=== PATIENT | female | born 1995 | race Caucasian/White ===

== ENCOUNTER 2016-06-04 21:12 | Emergency (ER) | payer MEDICAID, OTHER ==
[2016-06-04] MEDS ORDERED: DEXAMETHASONE 10 MG/ML VIAL PO STA (21:30)
[2016-06-04] MEDS ORDERED: ALBUTEROL NEB 2.5 MG/3 ML INH STA (21:30)
[2016-06-04] MEDS ORDERED: DEXAMETHASONE 10 MG/ML VIAL ONE (21:35)
[2016-06-04] MEDS ORDERED: CHERRY SYRUP 10 ML UDC PO ONE (21:35)
[2016-06-04] MEDS ORDERED: ALBUTEROL NEB 2.5 MG/3 ML INH ONE (21:36)
[2016-06-04] MEDS ORDERED: ALBUTEROL 8 GM INHALER INH STA (22:02)
[2016-06-04] MEDS ORDERED: ALBUTEROL 8 GM INHALER INH ONE (22:12)
== END 2016-06-04 22:22 | disposition home or self-care (01) ==
DX: J45.21 Mild intermittent asthma with (acute) exacerbation (principal); F17.200 Nicotine dependence, unspecified, uncomplicated
CPT/HCPCS: 94640; 99283; 99284; A9270; J7613

== ENCOUNTER 2016-08-18 19:58 | Emergency (ER) | payer MEDICAID ==
[2016-08-18] MEDS ORDERED: IPRATROPIUM/ALBUTEROL 3 ML NEB INH STA (20:50)
--- NOTE | 2016-08-18 20:52 | ED Physician Documentation ---
PD HPI DYSPNEA - Stated complaint Stated Complaint: DIFF BREATHING - Chief complaint Chief Complaint: Resp - History obtained from History obtained from: Patient - History of Present Illness Timing - onset: Other (20-year-old woman with mild intermittent asthma, never hospitalized. Triggers include exertion and URI. She's had cough and cold symptoms with runny nose but no fevers for the last 2 days and today started having wheezing and shortness of breath with only moderate relief from nebulized treatments of albuterol at home. On a good day she doesn't take anything for her asthma.) Review of Systems Constitutional: denies: Fever, Chills Nose: reports: Rhinorrhea / runny nose, Congestion Throat: denies: Sore throat Cardiac: denies: Chest pain / pressure, Palpitations, Pedal edema, Calf pain Respiratory: reports: Dyspnea, Cough, Wheezing. 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 : Kidney stones HEENT: None Psych: None Musculoskeletal: None Derm: None - Past Surgical History Past Surgical History: Yes - Present Medications Home Medications: Ambulatory Orders Medication Instructions Recorded Confirmed Albuterol Sulfate [Proair Hfa 2 puffs IH QID #1 [id number].[email or web address] 06/04/16 08/18/16 Inhaler] predniSONE [Deltasone] 60 mg PO DAILY 5 Days 08/18/16 - Allergies Allergies/Adverse Reactions: Allergies Allergy/AdvReac Type Severity Reaction Status Date / Time No Known Drug Allergies Allergy Verified 08/18/16 20:18 - Social History Does the pt smoke?: No Smoking Status: Former smoker Does the pt drink ETOH?: No Does the pt have substance abuse?: No - Immunizations Immunizations are current?: Yes - POLST Patient has POLST: No PD ED PE NORMAL - Vitals Vital signs reviewed: Yes - General General: Alert and oriented X 3, No acute distress - HEENT HEENT: PERRL, Pharynx benign - Neck Neck: Supple, no meningeal sign, No bony TTP - Cardiac Cardiac: RRR, No murmur - Respiratory Respiratory: No respiratory distress, Other (Diminished but still moderate air movement with inspiratory and expiratory wheezes throughout, no focal findings. No respiratory distress.) - Abdomen Abdomen: Soft, Non tender - Extremities Extremities: No edema, No calf tenderness / cord - Neuro Neuro: Alert and oriented X 3, Normal speech - Psych Psych: Normal mood, Normal affect Results - Vitals Vitals: Vital Signs - 24 hr 08/18/16 08/18/16 08/18/16 20:06 21:00 21:15 Temperature 36.4 C L 36.3 C L Heart Rate 98 96 92 Respiratory 18 18 15 Rate Blood Pressure 130/81 H 119/67 O2 Saturation 98 97 Oxygen O2 Source Room air - Labs Labs: Laboratory Tests 08/18/16 20:58 Ur Specific [place] 1.020 Urine HCG, Qual NEGATIVE PD MEDICAL DECISION MAKING - ED course ED course: She presents with an apparent asthma exacerbation, after the first neb she was breathing clearer, still with some wheezes, given a second neb with albuterol, wanted to check a test before steroid's and this was done and negative , she was administered prednisone. Departure - Departure Disposition: 01 Home, Self Care Clinical Impression: Acute asthma exacerbation Qualifiers: Asthma severity: mild intermittent Qualified Code(s): J45.21 - Mild intermittent asthma with (acute) exacerbation Condition: Good Record reviewed to determine appropriate education?: Yes Instructions: Asthma Dc Prescriptions: predniSONE [Deltasone] 60 mg PO DAILY 5 Days Comments: Call your doctor to arrange a follow up appointment. Make the next available appointment. In the interim return anytime if worse or if new symptoms develop. Your blood pressure was elevated today on check in to the emergency department. This does not mean that you have hypertension, it is a common phenomenon to check into the emergency department and have elevated blood pressure. I recommend that you see your primary care physician within the week to have it rechecked when you're feeling better. Discharge Date/Time: 08/18/16 22:20
[2016-08-18] MEDS ORDERED: IPRATROPIUM/ALBUTEROL 3 ML NEB INH ONE (20:58)
[2016-08-18 21:16] VITALS: BP 119/67
[2016-08-18 21:41] LABS: HCG UR QUAL NEGATIVE
[2016-08-18] MEDS ORDERED: predniSONE 20 MG TABLET PO STA (21:53)
[2016-08-18] MEDS ORDERED: predniSONE 20 MG TABLET ONE (21:56)
[2016-08-18] MEDS ORDERED: ALBUTEROL NEB 2.5 MG/3 ML INH ONE (22:07)
[2016-08-18] MEDS: ALBUTEROL NEB 2.5 MG/3 ML INH STA ×2 (22:08→22:10)
== END 2016-08-18 22:20 | disposition home or self-care (01) ==
LOC: ED 19:58
DX: J45.21 Mild intermittent asthma with (acute) exacerbation (principal); R03.0 Elevated blood-pressure reading, without diagnosis of hypertension; Z87.891 Personal history of nicotine dependence
CPT/HCPCS: 81025; 94640; 99283; 99284; J7512; J7613; J7620

== ENCOUNTER 2016-10-17 14:44 | Outpatient (CLI) | payer MEDICAID ==
[2016-10-17 15:45] LABS: BASOPHILS % (AUTO) 0.3 %; EOSINOPHILS # (AUTO) 0.4 10^3/uL (0.0-0.7); EOSINOPHILS % (AUTO) 3.6 %; HGB - HEMOGLOBIN 12.8 g/dL (12.0-16.0); LYMPHOCYTES # (AUTO) 3.1 10^3/uL (1.5-3.5); LYMPHOCYTES % (AUTO) 28.9 %; MEAN CORPUSCULAR HEMOGLOBIN 28.8 pg (27.0-31.0); MEAN CORPUSCULAR HGB CONC 33.7 g/dL (32.0-36.0); MEAN CORPUSCULAR VOLUME 85.4 fL (81.0-99.0); MONOCYTES # (AUTO) 0.7 10^3/uL (0.0-1.0); MONOCYTES % (AUTO) 6.7 %; NEUTROPHILS # (AUTO) 6.6 10^3/uL (1.5-6.6); NEUTROPHILS % (AUTO) 60.5 %; RED BLOOD COUNT 4.45 10^6/uL (4.20-5.40); RED CELL DISTRIBUTION WIDTH 14.3 % (12.0-15.0); UNCORRECTED WHITE BLOOD COUNT 10.9 x10^3/uL; WHITE BLOOD COUNT 10.9 x10^3/uL (4.8-10.8)
[2016-10-20 14:35] LABS: TEST RESULT REPORT (())
== END 2016-10-17 14:45 | disposition home or self-care (01) ==
LOC: LAB 14:44
PROVIDERS: ATTEND Obstetrics & Gynecology
DX: Z36 Encounter for antenatal screening of mother (principal)
CPT/HCPCS: 36415; 81599; 85025; 86762; 86780; 86850; 86900; 86901; 87340; 87389

== ENCOUNTER 2016-12-11 12:23 | Outpatient (CLI) | payer MEDICAID ==
[2016-12-12 12:50] LABS: TEST RESULT REPORT (())
[2016-12-14 16:55] LABS: TEST RESULT REPORT (())
== END 2016-12-11 12:24 | disposition home or self-care (01) ==
LOC: LAB 12:23
PROVIDERS: ATTEND Obstetrics & Gynecology
DX: Z36 Encounter for antenatal screening of mother (principal)
CPT/HCPCS: 36415; 81511; 81599; 82105; 82677; 84702; 86336; 86780

== ENCOUNTER 2016-12-27 07:37 | Outpatient (CLI) | payer MEDICAID ==
--- NOTE | 2016-12-28 11:00 | Ultrasound Report ---
OB ULTRASOUND: 12/27/2016 CLINICAL INDICATION: anatomy. TECHNIQUE: Real-time scanning was performed with abrasives sales representative static images obtained. LAST MENSTRUAL PERIOD 08/09/2016 Clinical Age 20 weeks 0 days US Age 20 weeks 2 days EFW Hadlock 346 g EFW% Hadlock --- Heart Rate 151 bpm EDC 05/16/2017 US EDC 05/14/2017 BPD Hadlock 19 weeks 6 days; Mean mm 45.6 HC Hadlock 19 weeks 6 days; Mean mm 173.5 AC Hadlock 20 weeks 5 days; Mean mm 156.2 FL Hadlock 19 weeks 6 days; Mean mm 31.8 Presentation breech Placental Location posterior Cervical Length 4.2 cm Amniotic Fluid 4.6 cm FINDINGS: There is a single viable intrauterine gestation, in breech presentation. heart rate is 151 BPM. The placenta is posterior, without evidence of previa. Amniotic fluid volume is subjectively normal. By size, the fetus measures 20 weeks 2 days (20 weeks 0 days by LMP). The following anatomic structures were visualized and appear normal: The intracranial contents, including the ventricles and posterior fossa; the spine; the diaphragm; the abdominal contents, including the stomach , the bilateral kidneys, and urinary bladder, as well as a normal 3 vessel cord insertion; 4 limbs. Imaging of the cardiac structures and facial structures is limited by positioning. The uterus demonstrates a 4.9 x 4.6 x 2.5 cm fundal leiomyoma. No free fluid or adnexal lesion is appreciated. IMPRESSION: SINGLE VIABLE INTRAUTERINE GESTATION, WITH SIZE IN KEEPING WITH LMP DATING. LIMITED VISUALIZATION OF CARDIAC STRUCTURES AND FACIAL STRUCTURES , DUE TO POSITIONING. OTHERWISE, NORMAL ANATOMIC SURVEY. [facility]
== END 2016-12-27 07:38 | disposition home or self-care (01) ==
LOC: DI 07:37
PROVIDERS: ATTEND Obstetrics & Gynecology
DX: Z34.82 Encounter for supervision of other normal pregnancy, second trimester (principal)
CPT/HCPCS: 76811

== ENCOUNTER 2017-01-07 01:09 | Observation (INO) | payer MEDICAID ==
[2017-01-07 01:39] LABS: BILIRUBIN,URINE NEGATIVE (NEGATIVE); PH,URINE 6.5 PH (5.0-7.5)
[2017-01-07 01:56] LABS: UA w/ MICROSCOPIC CHARGE YES
[2017-01-07 01:57] LABS: UR CULTURE IF IND NOT INDICATED; WBC,URINE 0-3 /HPF (0-5)
[2017-01-07] MEDS ORDERED: MORPHINE 2 MG/ML SYRINGE IM PRN (02:05)
[2017-01-07] MEDS ORDERED: HYDROmorphone 1 MG/ML CARPUJECT IVP STA (03:02)
[2017-01-07] MEDS: LACTATED RINGERS 1,000 ML IV SCH ×4 (03:20→23:53)
[2017-01-07 03:48] LABS: BASOPHILS # (AUTO) 0.1 10^3/uL (0.0-0.1); BASOPHILS % (AUTO) 0.3 %; EOSINOPHILS # (AUTO) 0.3 10^3/uL (0.0-0.7); HCT - HEMATOCRIT 34.7 % (37.0-47.0); HGB - HEMOGLOBIN 11.9 g/dL (12.0-16.0); LYMPHOCYTES # (AUTO) 3.5 10^3/uL (1.5-3.5); LYMPHOCYTES % (AUTO) 22.3 %; MEAN CORPUSCULAR HEMOGLOBIN 29.5 pg (27.0-31.0); MEAN CORPUSCULAR HGB CONC 34.3 g/dL (32.0-36.0); MEAN PLATELET VOLUME 7.9 fL (7.9-10.8); MONOCYTES # (AUTO) 0.9 10^3/uL (0.0-1.0); MONOCYTES % (AUTO) 6.1 %; NEUTROPHILS # (AUTO) 10.7 10^3/uL (1.5-6.6); NEUTROPHILS % (AUTO) 69.3 %; RED BLOOD COUNT 4.03 10^6/uL (4.20-5.40); RED CELL DISTRIBUTION WIDTH 13.3 % (12.0-15.0); UNCORRECTED WHITE BLOOD COUNT 15.5 x10^3/uL; WHITE BLOOD COUNT 15.5 x10^3/uL (4.8-10.8)
[2017-01-07 03:50] LABS: ALBUMIN/GLOBULIN RATIO 0.9 (1.0-2.2); BILIRUBIN,TOTAL 0.4 mg/dL (0.2-1.0); CALCIUM 8.7 mg/dL (8.5-10.3); CREATININE 0.6 mg/dL (0.4-1.0); TOTAL PROTEIN 6.9 g/dL (6.7-8.2)
[2017-01-07] MEDS: HYDROmorphone PCA 10 MG IV PRN ×2 (04:03→17:29)
[2017-01-07] MEDS: ONDANSETRON 4 MG/2 ML VIAL IVP PRN ×3 (06:44→21:49)
[2017-01-07] MEDS ORDERED: ALBUTEROL NEB 2.5 MG/3 ML INH PRN (07:31)
--- NOTE | 2017-01-07 08:45 | PREOP HISTORY & PHYSICAL ---
DATE OF ADMISSION/SURGERY: 01/07/2017. IDENTIFICATION: A 21-year-old G2, P1 female who is 21.4 weeks, EDC is 2017. CHIEF COMPLAINT: Left flank plain. HISTORY OF PRESENT ILLNESS: The patient states at roughly 1 o'clock this morning she developed sudden left flank pain. It was localized to the back. She denies any history of trauma. She does have a history of having 4 previous renal stones. These have occurred both on the left and right hand side. She denies any chills or fevers at this time. She states her last kidney stone was roughly 1 year ago. She relates that she has had a renal basket on one of her kidney stones and has been admitted for pain control previously. PAST MEDICAL HISTORY: Positive for asthma. Renal Lithiasis PAST SURGICAL HISTORY: Positive for a previous basket of a right renal stone. She has also had a closed reduction of a leg fracture. ALLERGIES: NONE KNOWN. CURRENT MEDICATIONS 1. vitamins. 2. Ventolin. HABITS: The patient smokes 1 cigarette per day. SOCIAL HISTORY: The patient is , lives with spouse and child. REVIEW OF SYSTEMS: Negative for any stones. PHYSICAL EXAMINATION GENERAL: The patient is a well-developed, well-nourished female who is in moderate distress at this time. VITAL SIGNS: Temperature is 36.7, pulse is 98, blood pressure 102/59, respirations 18, 94% sat. HEENT: Pupils are equal, round. Extraocular muscles are intact. LUNGS: Clear without wheezes noted throughout. No evidence of any consolidation in any local areas. ABDOMEN: Soft, gravid, nontender. heart tones noted to be positive. BACK: There is marked tenderness in the left costovertebral angle. The remainder of the spine is nontender. LABORATORY: White count 15.5, hemoglobin 11.9, platelets 234. Electrolytes are all within normal limits. Urinalysis shows a specific gravity of 1.015. She is negative for nitrites, as well as leukocytes. However, she has noted to have large blood, as RBCs are too numerous to count. IMPRESSION: A 21-year-old G2, P1, at 21.4 weeks' gestation with left renal lithiasis, as well as asthma. 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 We will also obtain a renal ultrasound and restart her on her albuterol. JOB #: [id number] EXT JOB #:[id number] LOGAN
--- NOTE | 2017-01-07 09:34 | Ultrasound Report ---
RENAL ULTRASOUND: 01/07/2017 CLINICAL INDICATION: Left flank pain, nausea, vomiting, history of stones. TECHNIQUE: Real-time sonographic vascular imaging was performed by the corporate strategist through the kidney s utilizing both color-flow and Doppler spectral analysis. Multiple truck sales representative static images wer e saved for review. FINDINGS: The right kidney measures 12.5 x 6.5 x 5.2 cm, and is unremarkable. The left kidney measur es 13.0 x 7.7 x 6.4 cm, and demonstrates moderate hydronephrosis and proximal hydroureter. The presum ed obstructing calculus is not visualized, due to overlying bowel gas. Left ureteral dilatation does not extend to the bladder base, and the left ureteral jet was visualized in the urinary bladder, excl uding a complete obstruction. A right ureteral jet was also visualized. The bladder measures 9.2 x 7. 5 x 7.2 cm, yielding a volume of 257 mL. No focal bladder lesion is seen. Incidental note is made of a viable IUP. IMPRESSION: MODERATE LEFT HYDRONEPHROSIS AND PROXIMAL HYDROURETER. THE PRESUMED LEFT URETERAL CALCUL US IS NOT VISUALIZED, DUE TO OVERLYING BOWEL GAS. THE LEFT URETERAL JET IS VISUALIZED, EXCLUDING A CO MPLETE OBSTRUCTION. JOB #: [id number] EXT JOB #:[id number]
[2017-01-07] MEDS: PROMETHAZINE INJ 25 MG in SODIUM CHLORIDE 0.9% 50 ML IV PRN (10:07)
[2017-01-08] MEDS ORDERED: ACETAMINOPHEN 500 MG TABLET PO SCH (04:45)
[2017-01-08] MEDS ORDERED: ACETAMINOPHEN 500 MG TABLET PO ONE (05:00)
[2017-01-08] MEDS: LACTATED RINGERS 1,000 ML IV SCH ×2 (07:39→15:31)
[2017-01-08] MEDS: ONDANSETRON 4 MG/2 ML VIAL IVP PRN ×2 (08:03→12:55)
--- NOTE | 2017-01-08 08:35 | PROVIDER PROGRESS NOTE ---
Subjective - Prog Note Date Prog Note Date: 01/08/17 Prog Note Time: 08:33 - Subjective Pt reports feeling: Improved (Passed 2x3 mm stone last PM. Pain 3-6/10. Feels brused in the LLQ. C/O WILOSN, recieved tylenol 1000 mg 0500. C/O Nausia. is using Dilaudid.) Objective - Vital Signs/Intake & Output Reviewed Vital Signs: Yes Vital Signs: Vital Signs x48h Temp Pulse Pulse Resp BP Pulse Ox 01/08/17 07:55 77 16 01/08/17 07:44 36.6 C 72 14 111/46 L 98 Intake & Output: Intake & Output 01/05/17 01/06/17 01/07/17 01/08/17 23:59 23:59 23:59 23:59 Intake Total 2430 750 Output Total 2900 Balance -470 750 - Objective General Appearance: positive: Alert, Mild distress Respiratory: positive: Chest non-tender, No respiratory distress, Wheezes (thru out) Cardiovascular: positive: Regular rate & rhythm, No murmur Abdomen: positive: Non-tender, Mass (FHT 144 last PM) Back: positive: CVA tenderness (L) (improved from admission) Extremities: negative: Calf tenderness, Lashonda's sign/cords Neurologic/Psychiatric: positive: Oriented x3 - Lab Results Fish Bones: 01/07/17 03:20 01/07/17 03:20 - Diagnostic Imaging Diagnostic Imaging Results: positive: See rad report (Left Byers Nephro and Hydroureter) Assessment/Plan - Problem List (1) Impression: doing well Qualifiers: Weeks of gestation: 21 weeks Qualified Code(s): Z3A.21 - 21 weeks gestation of (2) Kidney calculi Impression: Passed 2-3 mm stone, improving anticipate discharge
[2017-01-08] MEDS ORDERED: SODIUM CHLORIDE FLUSH 0.9% 10 ML SYRINGE IVP ONE ×3 (09:13→14:20)
[2017-01-08] MEDS: PROMETHAZINE INJ 25 MG in SODIUM CHLORIDE 0.9% 50 ML IV PRN (09:29)
[2017-01-08] MEDS: ACETAMINOPHEN 325 MG TABLET PO PRN ×2 (11:48→15:23)
[2017-01-08] MEDS ORDERED: ONDANSETRON 4 MG/2 ML VIAL IVP ONE (14:06)
[2017-01-08 15:35] VITALS: BP 119/67
--- NOTE | 2017-01-08 17:59 | PROVIDER PROGRESS NOTE ---
Subjective - Prog Note Date Prog Note Date: 01/08/17 Prog Note Time: 17:57 - Subjective Pt reports feeling: Improved (Pt has had some difficulty with Nausia and head ach. Have resolved with Tylenol and Zofran. Flank pain totaly resolved.) Objective - Vital Signs/Intake & Output Reviewed Vital Signs: Yes Vital Signs: Vital Signs x48h Temp Pulse Resp BP Pulse Ox 01/08/17 16:00 16 01/08/17 15:34 37.2 C 85 16 119/67 97 01/08/17 15:00 16 01/08/17 14:00 16 01/08/17 13:00 16 01/08/17 12:00 14 01/08/17 11:51 36.7 C 84 16 117/67 98 01/08/17 11:00 14 01/08/17 10:00 16 Intake & Output: Intake & Output 01/05/17 01/06/17 01/07/17 01/08/17 23:59 23:59 23:59 23:59 Intake Total 2430 750 Output Total 2900 2500 Balance -470 -1750 - Objective General Appearance: positive: No acute distress, Alert Abdomen: positive: Non-tender, Mass Back: negative: CVA tenderness (R), CVA tenderness (L) - Lab Results Fish Bones: 01/07/17 03:20 01/07/17 03:20 Assessment/Plan - Problem List (1) Impression: doing well good FM. Qualifiers: Weeks of gestation: 21 weeks Qualified Code(s): Z3A.21 - 21 weeks gestation of (2) Kidney calculi Impression: Pt has passed Stone and renal colic resolved. Pt encouraged to keep welll hydrated
--- NOTE | 2017-01-08 18:43 | Discharge Plan ---
Discharge Plan Disposition: 01 Home, Self Care Condition: Good Diet: Regular Activity Restrictions: No Restrictions Shower Restrictions: No Driving Restrictions: No No Smoking: If you smoke, Please STOP! Call for help.
--- NOTE | 2017-01-09 09:13 | DISCHARGE SUMMARY ---
DATE OF ADMISSION: 01/07/2017 DATE OF DISCHARGE: 01/08/2017 ADMITTING DIAGNOSES 1. 21.4 weeks' gestation. 2. Left renal lithiasis. DISCHARGE DIAGNOSES 1. 21.4 weeks' gestation. 2. Left renal lithiasis. PROCEDURE: IV pain control, as well as pelvic ultrasound. HISTORY OF PRESENTING ILLNESS: The patient is a 21-year-old 2, para 1 female who was 21.4 wee ks on admission. She complained of sudden onset of left flank pain the morning of admission, she stat es it was localized to the back. No history of trauma. She had a history of having 4 previous renal s tones both on the left and right side. She has had one the right side, which required a basket proced ure. Her laboratories on admission showed a white count of 15.5, hemoglobin was 11.9. Urine showed ne gative nitrites, as well as leukocytes. However, she had a large blood and TNTC on the RBCs in her ur ine. She was admitted, placed on IV Dilaudid and IV of LR was ordered, and she had an ultrasound performed . This showed evidence of a dilated left renal collecting system. With time her kidney passed the sto ne on the night of the , it was measured to be 2 x 3 mm in size. Her pain started to improve dram atically. However, she had difficulty with some nausea, vomiting, as well as headache. These responde d to Phenergan as well as Zofran. The patient is feeling markedly improved at this time. PLAN: We are planning to send her home on discharge medications of Zofran 4 mg p.o. q.6 h. p.r.n. neli rosario as #16. She will be following up in clinic within the next 1-2 weeks. JOB #: [id number] EXT JOB #:[id number]
== END 2017-01-08 18:50 | disposition home or self-care (01) ==
LOC: WFO 01:09 → FBP 01:11 → WFO 06:18 → FBP 06:20
PROVIDERS: ADMIT Obstetrics & Gynecology; ATTEND Obstetrics & Gynecology
DX: O99.89 Other specified diseases and conditions complicating pregnancy, childbirth and the puerperium (principal); N13.2 Hydronephrosis with renal and ureteral calculous obstruction; R51 Headache; O99.512 Diseases of the respiratory system complicating pregnancy, second trimester; J45.909 Unspecified asthma, uncomplicated; O99.332 Smoking (tobacco) complicating pregnancy, second trimester; F17.210 Nicotine dependence, cigarettes, uncomplicated; Z3A.21 21 weeks gestation of pregnancy
CPT/HCPCS: 76770; 80053; 81001; 85025; 94640; 96365; 96366; 96372; 96375; 99213; A9270; G0378; J1170; J2270; J7040; J7120; J7613; 81003; 87086

== ENCOUNTER 2017-01-12 23:33 | Inpatient (IN) | payer MEDICAID ==
[2017-01-13] LABS: BILIRUBIN,URINE NEGATIVE (NEGATIVE); PH,URINE 6.5 PH (5.0-7.5)
[2017-01-13] MEDS ORDERED: HYDROmorphone 1 MG/ML CARPUJECT ONE (00:05)
[2017-01-13] MEDS ORDERED: LACTATED RINGERS 1,000 ML IV ONE (00:05)
[2017-01-13] MEDS ORDERED: SODIUM CHLORIDE FLUSH 0.9% 10 ML SYRINGE IVP ONE (00:06)
[2017-01-13 00:08] LABS: UR CULTURE IF IND NOT INDICATED; WBC,URINE 0-3 /HPF (0-5)
[2017-01-13] MEDS ORDERED: HYDROmorphone 1 MG/ML CARPUJECT IVP SCH (00:15)
[2017-01-13] MEDS ORDERED: LACTATED RINGERS 500 ML IV SCH (00:22)
[2017-01-13] MEDS ORDERED: HYDROmorphone 1 MG/ML SYRINGE IVP SCH (00:35)
[2017-01-13] MEDS ORDERED: HYDROmorphone 1 MG/ML SYRINGE ONE (00:37)
[2017-01-13] MEDS ORDERED: oxyCODONE 5 MG TABLET PO PRN (01:29)
[2017-01-13] MEDS ORDERED: oxyCODONE 5 MG TABLET ONE (01:29)
[2017-01-13] MEDS: ONDANSETRON 4 MG/2 ML VIAL IVP PRN ×5 (01:32→20:53)
[2017-01-13] MEDS ORDERED: fentaNYL 100 MCG/2 ML VIAL IVP PRN (01:54)
[2017-01-13] MEDS ORDERED: fentaNYL 100 MCG/2 ML VIAL ONE (01:56)
[2017-01-13] MEDS: LACTATED RINGERS 1,000 ML IV SCH ×5 (02:37→17:42)
[2017-01-13] MEDS ORDERED: fentaNYL 250 MCG/5 ML VIAL IVP PRN (02:52)
[2017-01-13] MEDS ORDERED: fentaNYL 100 MCG/2 ML VIAL IVP SCH (03:00)
[2017-01-13] MEDS: fentaNYL 100 MCG/2 ML VIAL IVP PRN ×10 (03:14→14:39)
[2017-01-13] MEDS: fentaNYL 250 MCG/5 ML VIAL IVP PRN ×3 (03:20→06:15)
[2017-01-13] MEDS: oxyCODONE 5 MG TABLET PO PRN ×4 (04:15→17:41)
--- NOTE | 2017-01-13 12:57 | Ultrasound Preliminary Report ---
Exam: US Retroperitoneal Limited IMPRESSION: There is no longer left hydronephrosis. [facility] SITE ID: [id number]
--- NOTE | 2017-01-13 13:00 | Ultrasound Report ---
EXAM: LIMITED RENAL ULTRASOUND EXAM DATE: 01/13/2017 12:33 PM. CLINICAL HISTORY: Left flank pain. History of kidney stones. Patient passed a kidney stone 3 weeks ag o. Patient is 22 weeks . COMPARISON: 01/07/2017. TECHNIQUE: Real-time scanning was performed with static images obtained. FINDINGS: Left Kidney: 13.1 cm. Normal echotexture with no stones, contour-deforming masses, or hydronephrosis . IMPRESSION: There is no longer left hydronephrosis. [facility] Referring Provider Line: [phone] SITE ID: [id number]
[2017-01-13] MEDS ORDERED: fentaNYL PCA 500 MCG IV PRN ×2 (13:30→14:28)
[2017-01-13] MEDS: TAMSULOSIN 0.4 MG CAPSULE PO SCH (17:41)
--- NOTE | 2017-01-13 19:31 | PROVIDER PROGRESS NOTE ---
Subjective - Prog Note Date Prog Note Date: 01/13/17 Prog Note Time: 19:27 - Subjective Pt reports feeling: Improved Subjective: Patient lying in bed. Cold cloth on her forehead and neck. Complaining of a headache. 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 Getting nausea as well from fentanyl. Objective - Vital Signs/Intake & Output Reviewed Vital Signs: Yes Vital Signs: Vital Signs x48h Temp Pulse Resp BP Pulse Ox 01/13/17 15:31 97.5 F L 66 17 90/46 L 98 Intake & Output: Intake & Output 01/10/17 01/11/17 01/12/17 01/13/17 23:59 23:59 23:59 23:59 Intake Total 6158.166 Output Total 2700 Balance 3458.166 - Objective General Appearance: positive: Alert, Mild distress - Lab Results Other Labs: Lab Results x24hrs 01/12/17 Range/Units 23:40 Urine Color YELLOW Urine Clarity HAZY (CLEAR) Urine pH 6.5 (5.0-7.5) PH Ur Specific [place] 1.015 (1.002-1.030) Urine Protein NEGATIVE (NEGATIVE) mg/dL Urine Glucose (UA) NEGATIVE (NEGATIVE) mg/dL Urine Ketones NEGATIVE (NEGATIVE) mg/dL Urine Occult Blood LARGE H (NEGATIVE) Urine Nitrite NEGATIVE (NEGATIVE) Urine Bilirubin NEGATIVE (NEGATIVE) Urine Urobilinogen 0.2 (NORMAL) (NORMAL) E.U./dL Ur Leukocyte Esterase TRACE H (NEGATIVE) Urine RBC TNTC H (0-5) /HPF Urine WBC 0-3 (0-5) /HPF Ur Squamous Epith Cells MOD Squamous H (<= Few) Urine Bacteria Few (None Seen) /HPF Urine Culture Comments NOT INDICATED - Diagnostic Imaging Diagnostic Imaging Results: positive: Final report reviewed (01/13/2017 limited retroperitoneal U/S: No longer left hydronephrosis. Normal echotexture, with no stones, contour-deforming masses or hydronephrosis.) Assessment/Plan - Problem List (1) Kidney calculi Impression: Improved control of left renal stone. No obstruction to left ureter. Complaints of headache. Will give acetaminophen. PRN Zofran for nausea. Start colace for constipation. Trial of oral dilaudid for transition to home. Will change to in-patient status since she will be here for the 2nd midnight
[2017-01-13 20:22] LABS: BILIRUBIN,URINE NEGATIVE (NEGATIVE)
[2017-01-13 20:24] LABS: UA w/ MICROSCOPIC CHARGE YES
[2017-01-13 20:37] LABS: UR CULTURE IF IND NOT INDICATED; WBC,URINE 0-3 /HPF (0-5)
[2017-01-13] MEDS: ACETAMINOPHEN 500 MG TABLET PO SCH (20:52)
[2017-01-13] MEDS: DOCUSATE SODIUM 100 MG CAPSULE PO SCH (20:53)
[2017-01-13] MEDS: HYDROmorphone 2 MG TABLET PO PRN (20:53)
[2017-01-14] MEDS: HYDROmorphone 2 MG TABLET PO PRN ×2 (00:53→05:38)
[2017-01-14] MEDS: LACTATED RINGERS 1,000 ML IV SCH ×5 (01:52→22:15)
[2017-01-14] MEDS: ACETAMINOPHEN 500 MG TABLET PO SCH ×2 (05:39→13:43)
--- NOTE | 2017-01-14 08:44 | HISTORY & PHYSICAL EXAMINATION ---
DATE OF ADMISSION: 01/13/2017 IDENTIFICATION: This is a 21-year-old G2, P1-0-0-1 with a 22-3/7-week intrauterine . EDC is 05/16/2017, changed by a 7-week ultrasound. HISTORY OF PRESENT ILLNESS: This is a patient of [facility] who presents with acute onset of left flank pain. Unfortunately, patient was recently seen here with the same problem. On 01/07/2017 at 21 weeks 4 days' gestation, she was diagnosed with a left renal lithiasis and was given IV Dilaudid in order to control her pain. She passed a stone on the night of 2016 measuring 2 x 3 mm. She was discharged to home with prescription for Zofran. The patient, however, started having acute pain on the evening of 01/12/2017. The patient was given IV fluids, as well as IV Dilaudid. This did not resolve her pain, and p.o. oxycodone also did not seem to improve her pain. However, with IV fentanyl, we have been able to control the patient's pain, which ranges between a 7-10 down to a 3-4. Given that the patient's pain still continues, we will keep her for further observation. Obstetrically, the patient is doing well. Denies any vaginal bleeding, contractions or loss of fluid. She reports that the baby has been moving well. PAST MEDICAL HISTORY 1. Nephrolithiasis going back to when the patient was approximately 14 years of age. 2. Obesity. 3. Asthma. PAST SURGICAL HISTORY: A 2014 right removal of nephrolithiasis per patient report. There is a notation in the chart that the patient was admitted from to 05/10/2013 by Agusto Macias MD. She had an ultrasound of the abdomen, CT scan of the abdomen and pelvis without contrast x2, and a KUB. She was referred to Juan Antonio Hardy MD, a urologist at [facility]. ALLERGIES: NO KNOWN DRUG ALLERGIES. MEDICATIONS 1. vitamins. 2. Singulair 10 mg. 3. Zyrtec p.r.n. SOCIAL HISTORY: She denies any tobacco, alcohol or illicit drug use. The patient 's maiden name is Adolfo. She is to Luis Alfredo, and they have a little boy, Colton. Her pharmacy of choice is [facility] in [place], [place]. PAST OBSTETRICAL HISTORY 1. She delivered a viable male named Colton on 02/05/2016. Apgars were 8 and 9 at one and five minutes respectively, and he weighed 7 pounds 11 ounces. She had a 2nd degree laceration, as well as a left labial laceration. EBL was 450 mL at the time. 2. This current has been significant for left nephrolithiasis that was seen at 21 weeks' gestation. Her first visit with us on 09/28/2016 changed dates at 7 weeks 1 day with an EDC of 05/16/2017. LMP is 08/01/2016. DATA: labs reveal that she is O positive, antibody screen negative, white count is 10.9, hemoglobin and hematocrit are 12.8 and 38.0, platelets of 272. Rubella is immune. Hepatitis B surface antigen is nonreactive, as well as HIV. Syphilis screen is nonreactive. GC and chlamydia are both negative, as well as quad screen. Her 12/27/2016 anatomical survey is consistent with dates and within normal limits. Placenta noted to be posterior with a 3 vessel cord. Cervical length of 4.2 cm and most vertical pocket is 4.6 cm. There is limited visualization of cardiac structures and facial structures. Finally, there is a 4.9 x 4.6 x 2.5 cm fundal leiomyoma. PAST GYNECOLOGICAL HISTORY: She denies any abnormal Pap smears or sexually transmitted diseases. A 07/22/2015 Pap smear revealed ASCUS Pap smear with positive HPV virus. FAMILY HISTORY: She denies any female carcinoma. There is a history of a heart attack with her maternal grandfather and hypertension with her father. PHYSICAL EXAMINATION VITAL SIGNS: Temperature is 98.1, heart rate 82, blood pressure is 98/57, respiration 18, O2 saturations 97. GENERAL: The patient is a well-developed, well-nourished female who does appear to be in quite a bit of pain. She, otherwise, is alert and oriented x3. HEENT: Within normal limits. CARDIOVASCULAR: Rate is regular. No murmurs or rubs. PULMONARY: Lungs clear to auscultation bilaterally. ABDOMEN: Gravid, nontender. ASSESSMENT 1. A 21-year-old G2, P1-0-0-1 with a 22-3/7-week intrauterine . 2. Left nephrolithiasis. 3. Intractable left flank pain. PLAN 1. Will admit to observation. 2. Continue IV hydration. 3. Fentanyl MANAGER PRODUCT MARKETING. 4. Will obtain left retroperitoneal ultrasound to rule out a ureteral obstruction. 5. We will initiate Flomax. 6. With regard to outpatient followup, the patient will need to complete her anatomical survey, as well as repeat her Pap smear given the ASCUS Pap smear with the presence of a high-risk human papillomavirus. 7. We will continue close monitoring of her 4.9 x 4.6 x 2.5 cm fundal leiomyoma. JOB #: [id number] EXT JOB #:[id number] LOGAN
--- NOTE | 2017-01-14 08:46 | PROVIDER PROGRESS NOTE ---
Subjective - Prog Note Date Prog Note Date: 01/14/17 Prog Note Time: 08:44 - Subjective Pt reports feeling: Improved (Pain well controled on oral medication Dilaudid. Pain 07/23. WILSON resolved. notes good FM. Trey contractions.) Objective - Vital Signs/Intake & Output Reviewed Vital Signs: Yes Vital Signs: Vital Signs x48h Temp Pulse Resp BP Pulse Ox 01/14/17 05:45 36.6 C 74 16 95/44 L 96 01/14/17 01:20 74 101/50 L 01/14/17 01:05 36.8 C 80 16 95/47 L 96 Intake & Output: Intake & Output 01/11/17 01/12/17 01/13/17 01/14/17 23:59 23:59 23:59 23:59 Intake Total 7158.166 4211 Output Total 3980 559 Balance 3178.166 3652 - Objective General Appearance: positive: No acute distress, Alert Respiratory: positive: Chest non-tender, No respiratory distress, Wheezes ( throu out) Cardiovascular: positive: Regular rate & rhythm, No murmur, No gallop Abdomen: positive: Non-tender, Nml bowel sounds, No distention, Mass (uterus) Skin: positive: Color nml, No rash, Warm, Dry Neurologic/Psychiatric: positive: Oriented x3 - Lab Results Other Labs: Lab Results x24hrs 01/13/17 Range/Units 19:46 Urine Color STRAW Urine Clarity CLEAR (CLEAR) Urine pH 7.0 (5.0-7.5) PH Ur Specific [place] <=1.005 (1.002-1.030) Urine Protein NEGATIVE (NEGATIVE) mg/dL Urine Glucose (UA) NEGATIVE (NEGATIVE) mg/dL Urine Ketones NEGATIVE (NEGATIVE) mg/dL Urine Occult Blood MODERATE H (NEGATIVE) Urine Nitrite NEGATIVE (NEGATIVE) Urine Bilirubin NEGATIVE (NEGATIVE) Urine Urobilinogen 0.2 (NORMAL) (NORMAL) E.U./dL Ur Leukocyte Esterase TRACE H (NEGATIVE) Urine RBC 0-5 (0-5) /HPF Urine WBC 0-3 (0-5) /HPF Ur Squamous Epith Cells MOD Squamous H (<= Few) Urine Bacteria Few (None Seen) /HPF Ur Microscopic Review INDICATED Urine Culture Comments NOT INDICATED - Diagnostic Imaging Diagnostic Imaging Results: positive: Final report reviewed Assessment/Plan - Problem List (1) Kidney calculi Impression: still pain but improving control on Dilaudid. will change ot Oxycodone (2) Asthma Impression: will restart ventolin Qualifiers: Asthma severity: mild intermittent Asthma complication type: uncomplicated Qualified Code(s): J45.20 - Mild intermittent asthma, uncomplicated (3) Qualifiers: Weeks of gestation: 22 weeks Qualified Code(s): Z3A.22 - 22 weeks gestation of
[2017-01-14] MEDS: ONDANSETRON 4 MG/2 ML VIAL IVP PRN ×3 (09:00→21:47)
[2017-01-14] MEDS: PRENATAL VITAMIN TABLET PO SCH (09:00)
[2017-01-14] MEDS ORDERED: TAMSULOSIN 0.4 MG CAPSULE PO SCH (09:00)
[2017-01-14] MEDS: DOCUSATE SODIUM 100 MG CAPSULE PO SCH ×3 (09:00→21:22)
[2017-01-14] MEDS: TAMSULOSIN 0.4 MG CAPSULE PO SCH (09:43)
[2017-01-14] MEDS: oxyCODONE 5 MG TABLET PO PRN ×3 (10:51→15:40)
[2017-01-14] MEDS ORDERED: PROMETHAZINE INJ 12.5 MG in SODIUM CHLORIDE 0.9% 50 ML IV SCH (12:30)
--- NOTE | 2017-01-14 18:25 | PROVIDER PROGRESS NOTE ---
Subjective - Prog Note Date Prog Note Date: 01/14/17 Prog Note Time: 18:22 - Subjective Pt reports feeling: Worse (Pt noted complete resoluption of her left flank pain. this afternoon developed progressive with flank pain. simular to her other kidney pain. needed oxycodone.) Objective - Vital Signs/Intake & Output Reviewed Vital Signs: Yes Intake & Output: Intake & Output 01/11/17 01/12/17 01/13/17 01/14/17 23:59 23:59 23:59 23:59 Intake Total 7158.166 6207.333 Output Total 3980 559 Balance 3178.166 5648.333 - Objective General Appearance: positive: Alert, Mild distress Abdomen: positive: Non-tender Back: positive: CVA tenderness (R) (new onset flank pain and tenderness. 10/22). negative: CVA tenderness (L) (complete resolution) - Lab Results Other Labs: Lab Results x24hrs 01/13/17 Range/Units 19:46 Urine Color STRAW Urine Clarity CLEAR (CLEAR) Urine pH 7.0 (5.0-7.5) PH Ur Specific [place] <=1.005 (1.002-1.030) Urine Protein NEGATIVE (NEGATIVE) mg/dL Urine Glucose (UA) NEGATIVE (NEGATIVE) mg/dL Urine Ketones NEGATIVE (NEGATIVE) mg/dL Urine Occult Blood MODERATE H (NEGATIVE) Urine Nitrite NEGATIVE (NEGATIVE) Urine Bilirubin NEGATIVE (NEGATIVE) Urine Urobilinogen 0.2 (NORMAL) (NORMAL) E.U./dL Ur Leukocyte Esterase TRACE H (NEGATIVE) Urine RBC 0-5 (0-5) /HPF Urine WBC 0-3 (0-5) /HPF Ur Squamous Epith Cells MOD Squamous H (<= Few) Urine Bacteria Few (None Seen) /HPF Ur Microscopic Review INDICATED Urine Culture Comments NOT INDICATED Assessment/Plan - Problem List (1) Kidney calculi Impression: Resolution of left renal lithisas new right flank pain. probable lithisis vs pyleo. CBC, BMP, UA, Retroperitonel US (2) Asthma Qualifiers: Asthma severity: mild intermittent Asthma complication type: uncomplicated (3) Qualifiers: Weeks of gestation: 22 weeks Qualified Code(s): Z3A.22 - 22 weeks gestation of
[2017-01-14 18:35] LABS: BILIRUBIN,URINE NEGATIVE (NEGATIVE); PH,URINE 7.5 PH (5.0-7.5)
[2017-01-14 18:51] LABS: CALCIUM 8.7 mg/dL (8.5-10.3); CREATININE 0.6 mg/dL (0.4-1.0); POTASSIUM 3.2 mmol/L (3.5-5.0)
[2017-01-14 18:54] LABS: BASOPHILS % (AUTO) 0.5 %; EOSINOPHILS # (AUTO) 0.3 10^3/uL (0.0-0.7); EOSINOPHILS % (AUTO) 3.3 %; HGB - HEMOGLOBIN 10.7 g/dL (12.0-16.0); LYMPHOCYTES # (AUTO) 2.5 10^3/uL (1.5-3.5); LYMPHOCYTES % (AUTO) 29.4 %; MEAN CORPUSCULAR HEMOGLOBIN 30.3 pg (27.0-31.0); MEAN CORPUSCULAR HGB CONC 34.5 g/dL (32.0-36.0); MONOCYTES # (AUTO) 0.6 10^3/uL (0.0-1.0); MONOCYTES % (AUTO) 6.9 %; NEUTROPHILS % (AUTO) 59.9 %; RED BLOOD COUNT 3.52 10^6/uL (4.20-5.40); RED CELL DISTRIBUTION WIDTH 13.2 % (12.0-15.0); UNCORRECTED WHITE BLOOD COUNT 8.4 x10^3/uL; WHITE BLOOD COUNT 8.4 x10^3/uL (4.8-10.8)
--- NOTE | 2017-01-14 20:44 | Ultrasound Preliminary Report ---
Exam: US Retroperitoneal IMPRESSION: Mild bilateral hydronephrosis is likely related to the patient's . [facility] SITE ID: [id number]
--- NOTE | 2017-01-14 20:47 | Ultrasound Report ---
EXAM: RENAL ULTRASOUND EXAM DATE: 01/14/2017 08:11 PM. CLINICAL HISTORY: Pt had left kidney pain which resolved. . COMPARISON: None. TECHNIQUE: Real-time scanning was performed with static images obtained. FINDINGS: Right Kidney: 11.8 cm. Mild hydronephrosis likely related to the patient's . Left Kidney: 12.6 cm. Mild hydronephrosis likely related to the patient's . Bladder: Right ureteral jet was not seen. Prevoid bladder demonstrates significant sonographic abnorm alities. IMPRESSION: Mild bilateral hydronephrosis is likely related to the patient's . [facility] Referring Provider Line: [phone] SITE ID: [id number]
[2017-01-14 21:07] LABS: UA w/ MICROSCOPIC CHARGE YES
[2017-01-14] MEDS ORDERED: SODIUM CHLORIDE FLUSH 0.9% 10 ML SYRINGE IVP ONE (21:11)
[2017-01-14 21:22] LABS: UR CULTURE IF IND NOT INDICATED; WBC,URINE 0-3 /HPF (0-5)
[2017-01-14] MEDS: SODIUM CHLORIDE FLUSH 0.9% 10 ML SYRINGE IVP ONE (21:22)
[2017-01-14] MEDS: POTASSIUM CHLORIDE 10 MEQ CAPSULE PO SCH (21:22)
[2017-01-14] MEDS: HYDROmorphone 1 MG/ML SYRINGE IVP PRN (21:47)
[2017-01-15] MEDS: LACTATED RINGERS 1,000 ML IV SCH ×5 (02:07→19:45)
[2017-01-15] MEDS: ACETAMINOPHEN 500 MG TABLET PO SCH ×4 (02:10→20:20)
[2017-01-15] MEDS: HYDROmorphone 1 MG/ML SYRINGE IVP PRN ×5 (03:08→21:10)
[2017-01-15] MEDS ORDERED: HYDROmorphone PCA 10 MG IV PRN (08:36)
[2017-01-15] MEDS: PRENATAL VITAMIN TABLET PO SCH (08:48)
[2017-01-15] MEDS: TAMSULOSIN 0.4 MG CAPSULE PO SCH (08:48)
[2017-01-15] MEDS: POTASSIUM CHLORIDE 10 MEQ CAPSULE PO SCH ×2 (08:48→20:20)
[2017-01-15] MEDS: DOCUSATE SODIUM 100 MG CAPSULE PO SCH ×2 (08:49→20:20)
[2017-01-15] MEDS: SODIUM CHLORIDE FLUSH 0.9% 10 ML SYRINGE IVP ONE (08:49)
--- NOTE | 2017-01-15 08:57 | PROVIDER PROGRESS NOTE ---
Subjective - Prog Note Date Prog Note Date: 01/15/17 Prog Note Time: 08:54 - Subjective Pt reports feeling: No change (Pt still feels 6/10 right flank pain. Constant with out movement. FM good. Using FOLEY ARTIST.) Objective - Vital Signs/Intake & Output Reviewed Vital Signs: Yes Vital Signs: Vital Signs x48h Temp Pulse Resp BP Pulse Ox 01/15/17 08:00 16 01/15/17 07:00 16 01/15/17 06:00 16 01/15/17 05:00 18 01/15/17 04:00 18 01/15/17 03:10 36.5 C 75 18 97/47 L 97 01/15/17 02:08 18 01/15/17 02:00 18 Intake & Output: Intake & Output 01/12/17 01/13/17 01/14/17 01/15/17 23:59 23:59 23:59 23:59 Intake Total 7158.166 7590.666 1941.667 Output Total 3980 3584 650 Balance 3178.166 4006.666 1291.667 - Objective General Appearance: positive: Alert, Mild distress Respiratory: positive: Chest non-tender, No respiratory distress. negative: Wheezes Cardiovascular: positive: Regular rate & rhythm, No murmur Abdomen: positive: Non-tender, Nml bowel sounds, Mass (Uterus) Back: positive: CVA tenderness (R) (610) Skin: positive: Color nml, No rash, Warm, Dry Extremities: negative: Calf tenderness, Lashonda's sign/cords Neurologic/Psychiatric: positive: Oriented x3 - Lab Results Fish Bones: 01/14/17 18:36 01/14/17 18:36 Other Labs: Lab Results x24hrs 01/14/17 01/14/17 01/14/17 Range/Units 18:36 18:36 18:25 WBC 8.4 (4.8-10.8) x10^3/uL RBC 3.52 L (4.20-5.40) 10^6/uL Hgb 10.7 L (12.0-16.0) g/dL Hct 31.0 L (37.0-47.0) % MCV 88.0 (81.0-99.0) fL MCH 30.3 (27.0-31.0) pg MCHC 34.5 (32.0-36.0) g/dL RDW 13.2 (12.0-15.0) % Plt Count 223 (130-450) 10^3/uL MPV 8.0 (7.9-10.8) fL Neut # 5.0 (1.5-6.6) 10^3/uL Lymph # 2.5 (1.5-3.5) 10^3/uL [place] # 0.6 (0.0-1.0) 10^3/uL Eos # 0.3 (0.0-0.7) 10^3/uL Baso # 0.0 (0.0-0.1) 10^3/uL Absolute Nucleated RBC 0.00 x10^3/uL Nucleated RBC % 0.0 /100WBC Sodium 137 (135-145) mmol/L Potassium 3.2 L (3.5-5.0) mmol/L Chloride 104 (101-111) mmol/L Carbon Dioxide 24 (21-32) mmol/L Anion Gap 9.0 (6-13) BUN 5 L (6-20) mg/dL Creatinine 0.6 (0.4-1.0) mg/dL Estimated GFR (MDRD) 124 (>89) Glucose 88 (70-100) mg/dL Calcium 8.7 (8.5-10.3) mg/dL Urine Color STRAW Urine Clarity CLEAR (CLEAR) Urine pH 7.5 (5.0-7.5) PH Ur Specific [place] 1.010 (1.002-1.030) Urine Protein NEGATIVE (NEGATIVE) mg/dL Urine Glucose (UA) NEGATIVE (NEGATIVE) mg/dL Urine Ketones NEGATIVE (NEGATIVE) mg/dL Urine Occult Blood NEGATIVE (NEGATIVE) Urine Nitrite NEGATIVE (NEGATIVE) Urine Bilirubin NEGATIVE (NEGATIVE) Urine Urobilinogen 0.2 (NORMAL) (NORMAL) E.U./dL Ur Leukocyte Esterase NEGATIVE (NEGATIVE) Urine RBC 0-5 (0-5) /HPF Urine WBC 0-3 (0-5) /HPF Ur Squamous Epith Cells MOD Squamous H (<= Few) Urine Bacteria None Seen (None Seen) /HPF Ur Microscopic Review INDICATED Urine Culture Comments NOT INDICATED Assessment/Plan - Problem List (1) Kidney calculi Impression: Negative UA, CBC and US. Possible renal colic from (2) Asthma Impression: Well controled Qualifiers: Asthma severity: mild intermittent Asthma complication type: uncomplicated (3) Impression: Good FM Qualifiers: Weeks of gestation: 22 weeks Qualified Code(s): Z3A.22 - 22 weeks gestation of
[2017-01-15] MEDS: oxyCODONE 5 MG TABLET PO PRN ×4 (10:01→22:28)
[2017-01-15] MEDS: ONDANSETRON 4 MG/2 ML VIAL IVP PRN ×2 (10:46→18:39)
[2017-01-15] MEDS ORDERED: SODIUM CHLORIDE FLUSH 0.9% 10 ML SYRINGE IVP ONE (11:42)
[2017-01-15] MEDS: PROMETHAZINE INJ 12.5 MG in SODIUM CHLORIDE 0.9% 50 ML IV PRN ×2 (12:51→21:56)
[2017-01-15] MEDS ORDERED: PROMETHAZINE 25 MG/1 ML VIAL ONE (21:53)
[2017-01-15] MEDS: ALBUTEROL NEB 2.5 MG/3 ML INH PRN (22:10)
[2017-01-16] MEDS: LACTATED RINGERS 1,000 ML IV SCH ×6 (00:20→21:14)
[2017-01-16] MEDS: HYDROmorphone 1 MG/ML SYRINGE IVP PRN ×3 (01:14→09:07)
[2017-01-16] MEDS: oxyCODONE 5 MG TABLET PO PRN ×2 (03:51→11:33)
[2017-01-16] MEDS: ACETAMINOPHEN 500 MG TABLET PO SCH ×3 (03:51→19:50)
[2017-01-16] MEDS: PRENATAL VITAMIN TABLET PO SCH (08:52)
[2017-01-16] MEDS: DOCUSATE SODIUM 100 MG CAPSULE PO SCH ×2 (08:53→19:50)
[2017-01-16] MEDS: TAMSULOSIN 0.4 MG CAPSULE PO SCH (08:53)
[2017-01-16] MEDS: POTASSIUM CHLORIDE 10 MEQ CAPSULE PO SCH ×2 (08:53→19:51)
[2017-01-16] MEDS: ONDANSETRON 4 MG/2 ML VIAL IVP PRN ×2 (08:57→18:40)
[2017-01-16] MEDS ORDERED: PROMETHAZINE 25 MG TABLET ONE (10:28)
[2017-01-16] MEDS: PROMETHAZINE INJ 12.5 MG in SODIUM CHLORIDE 0.9% 50 ML IV PRN (10:50)
[2017-01-16 11:06] LABS: BILIRUBIN,URINE NEGATIVE (NEGATIVE)
[2017-01-16 11:23] LABS: UR CULTURE IF IND INDICATED; WBC,URINE 0-3 /HPF (0-5)
[2017-01-16] MEDS ORDERED: PROMETHAZINE 12.5 MG TABLET PO PRN (14:50)
[2017-01-16] MEDS ORDERED: ONDANSETRON ODT 4 MG TABLET TL PRN (14:51)
[2017-01-16] MEDS ORDERED: HYDROmorphone 2 MG TABLET PO PRN (14:52)
[2017-01-16] MEDS: PROMETHAZINE 25 MG TABLET PO PRN ×2 (15:10→20:48)
[2017-01-16] MEDS ORDERED: HYDROmorphone 1 MG/ML CARPUJECT IVP ONE (16:13)
[2017-01-16] MEDS ORDERED: HYDROmorphone 1 MG/ML SYRINGE ONE (16:20)
[2017-01-16] MEDS ORDERED: MORPHINE PCA 50 MG IV PRN (16:51)
--- NOTE | 2017-01-16 17:25 | PROVIDER PROGRESS NOTE ---
Subjective - Prog Note Date Prog Note Date: 01/16/17 Prog Note Time: 17:23 - Subjective Pt reports feeling: Worse Subjective: Patient writhing in pain. Pain was going away two days ago. Now noting pain on the right, the contralateral side from which she presented. Pain 8/10 and feels sharp. Quality of the pain similar to a kidney stone in the past. Also feels "grainy" when she urinates. PO narcotics not effective. National shortage of IV dilaudid and fentanyl due to monopoly on drugs. Reports that the baby is moving well. Denies vaginal bleeding, contractions or loss of fluid. Objective - Vital Signs/Intake & Output Reviewed Vital Signs: Yes Intake & Output: Intake & Output 01/13/17 01/14/17 01/15/17 01/16/17 23:59 23:59 23:59 23:59 Intake Total 7158.166 7590.666 5942.667 3165 Output Total 3980 3584 3650 1200 Balance 3178.166 4006.666 2292.667 1965 - Objective General Appearance: positive: Mild distress Abdomen: positive: Non-tender Back: positive: Nml inspection (No CVAT) Neurologic/Psychiatric: positive: Oriented x3, Other (Tearful) - Lab Results Fish Bones: 01/14/17 18:36 01/14/17 18:36 Other Labs: Lab Results x24hrs 01/16/17 Range/Units 10:50 Urine Color LIGHT YELLOW Urine Clarity CLEAR (CLEAR) Urine pH 7.0 (5.0-7.5) PH Ur Specific [place] 1.010 (1.002-1.030) Urine Protein NEGATIVE (NEGATIVE) mg/dL Urine Glucose (UA) NEGATIVE (NEGATIVE) mg/dL Urine Ketones NEGATIVE (NEGATIVE) mg/dL Urine Occult Blood NEGATIVE (NEGATIVE) Urine Nitrite NEGATIVE (NEGATIVE) Urine Bilirubin NEGATIVE (NEGATIVE) Urine Urobilinogen 0.2 (NORMAL) (NORMAL) E.U./dL Ur Leukocyte Esterase SMALL H (NEGATIVE) Urine RBC 0-5 (0-5) /HPF Urine WBC 0-3 (0-5) /HPF Ur Squamous Epith Cells FEW Squamous (<= Few) Urine Bacteria Few (None Seen) /HPF Urine Culture Comments INDICATED Assessment/Plan - Problem List (1) Kidney calculi Impression: 21 yo with a 23w0d IUP Resolved left nephrolithiasis Presumed new onset right nephrolithiasis Recent U/S shows resolution of left hydronephrosis but likely new onset right hydronephrosis 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 Convert to oral narcotics when pain better controlled. Continue daily Flomax 0.4 mg Continue IVF to flush out stones Will need uro consult after discharge from the hospital. Patient may need to deliver at a higher level of care if she requires continuous narcotics for kidney stones through her . Zofran PRN.
--- NOTE | 2017-01-16 17:51 | PROVIDER PROGRESS NOTE ---
Subjective - Prog Note Date Prog Note Date: 01/16/17 Prog Note Time: 17:49 - Subjective Pt reports feeling: No change (Pt notes some mild improvement in he right flank pain . She is utilizing Diludid) Objective - Vital Signs/Intake & Output Reviewed Vital Signs: Yes Intake & Output: Intake & Output 01/13/17 01/14/17 01/15/17 01/16/17 23:59 23:59 23:59 23:59 Intake Total 7158.166 7590.666 5942.667 4165 Output Total 3980 3584 3650 1200 Balance 3178.166 4006.666 2292.667 2965 - Objective General Appearance: positive: No acute distress, Alert Respiratory: positive: Chest non-tender, No respiratory distress, Breath sounds nml Cardiovascular: positive: Regular rate & rhythm, No murmur Abdomen: positive: Non-tender, No organomegaly, Nml bowel sounds, No distention , Mass (uterus) Back: positive: CVA tenderness (R) Skin: positive: Color nml, No rash, Warm, Dry Extremities: negative: Calf tenderness, Lashonda's sign/cords Neurologic/Psychiatric: positive: Oriented x3 - Lab Results Fish Bones: 01/14/17 18:36 01/14/17 18:36 Other Labs: Lab Results x24hrs 01/16/17 Range/Units 10:50 Urine Color LIGHT YELLOW Urine Clarity CLEAR (CLEAR) Urine pH 7.0 (5.0-7.5) PH Ur Specific [place] 1.010 (1.002-1.030) Urine Protein NEGATIVE (NEGATIVE) mg/dL Urine Glucose (UA) NEGATIVE (NEGATIVE) mg/dL Urine Ketones NEGATIVE (NEGATIVE) mg/dL Urine Occult Blood NEGATIVE (NEGATIVE) Urine Nitrite NEGATIVE (NEGATIVE) Urine Bilirubin NEGATIVE (NEGATIVE) Urine Urobilinogen 0.2 (NORMAL) (NORMAL) E.U./dL Ur Leukocyte Esterase SMALL H (NEGATIVE) Urine RBC 0-5 (0-5) /HPF Urine WBC 0-3 (0-5) /HPF Ur Squamous Epith Cells FEW Squamous (<= Few) Urine Bacteria Few (None Seen) /HPF Urine Culture Comments INDICATED Assessment/Plan - Problem List (1) Kidney calculi Impression: Repeat UA negative for RBC or WBC Most likely Renal colic Discussed case with Urologist in and [facility]. Both concur that Stint should be used as a last resort. Try to manage pt on Narcotics.if signs of marked dilatation of unrelenting pain may need stint. is willing to evaluate if not improving. (2) Asthma Qualifiers: Asthma severity: mild intermittent Asthma complication type: uncomplicated (3) Impression: good FM Qualifiers: Weeks of gestation: 22 weeks Qualified Code(s): Z3A.22 - 22 weeks gestation of
[2017-01-16] MEDS: SODIUM CHLORIDE FLUSH 0.9% 10 ML SYRINGE IVP ONE (18:40)
[2017-01-16] MEDS: ALBUTEROL NEB 2.5 MG/3 ML INH PRN (20:20)
[2017-01-17] MEDS: LACTATED RINGERS 1,000 ML IV SCH ×4 (00:48→12:23)
[2017-01-17] MEDS: ACETAMINOPHEN 500 MG TABLET PO SCH ×2 (03:33→12:23)
[2017-01-17] MEDS: PROMETHAZINE 25 MG TABLET PO PRN ×2 (03:34→15:36)
[2017-01-17] MEDS ORDERED: POLYETHYLENE GLYCOL 3350 17 GM PACKET PO PRN (07:55)
[2017-01-17] MEDS: SODIUM CHLORIDE FLUSH 0.9% 10 ML SYRINGE IVP ONE (07:59)
[2017-01-17] MEDS: ONDANSETRON 4 MG/2 ML VIAL IVP PRN (08:00)
[2017-01-17] MEDS ORDERED: SODIUM CHLORIDE FLUSH 0.9% 10 ML SYRINGE IVP ONE (08:02)
--- NOTE | 2017-01-17 08:12 | Ultrasound Report ---
RENAL ULTRASOUND: 01/17/2017 CLINICAL INDICATION: Nephrolithiasis. COMPARISON: 01/14/2017 TECHNIQUE: Real-time scanning was performed with fundraising sale representative static images obtained. FINDINGS: The right kidney measures 13.5 x 5.8 x 5.5 cm. Previously seen right hydronephrosis has r esolved. No perinephric collection or focal renal lesion is seen. The left kidney measures 13.0 x 6.8 x 5.9 cm. Left hydronephrosis appears stable from 01/14/2017. N o definite shadowing calculus is identified. Prevoid, the bladder measures 11.2 x 10.5 x 9.0 cm, yielding a prevoid volume of 556 mL. Bilateral u reteral jets are seen. Postvoid residual is 42 mL. IMPRESSION: STABLE LEFT HYDRONEPHROSIS. RESOLUTION OF RIGHT HYDRONEPHROSIS. NO SIGNIFICANT POSTVOI D RESIDUAL. JOB #: [id number] EXT JOB #:[id number]
--- NOTE | 2017-01-17 08:52 | PROVIDER PROGRESS NOTE ---
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 Was able to sleep. Patient exhausted and cannot recall when pain improved. Still noting a grittiness when she urinates. Reports that baby is moving well. Denies vaginal bleeding or contractions. Recalls only needs help with her asthma when she is sick. Has had two breathing treatments here. Objective - Vital Signs/Intake & Output Reviewed Vital Signs: Yes Vital Signs: Vital Signs x48h Temp Pulse Resp BP Pulse Ox 01/17/17 06:42 16 01/17/17 03:20 97.5 F L 82 18 113/62 97 Intake & Output: Intake & Output 01/14/17 01/15/17 01/16/17 01/17/17 23:59 23:59 23:59 23:59 Intake Total 7590.666 5942.667 5404.167 2779.167 Output Total 3584 3650 3250 Balance 4006.666 2292.667 2154.167 2779.167 - Objective General Appearance: positive: No acute distress Abdomen: positive: Non-tender, Other (Gravid, nontender) - Lab Results Fish Bones: 01/14/17 18:36 01/14/17 18:36 Other Labs: Lab Results x24hrs 01/16/17 Range/Units 10:50 Urine Color LIGHT YELLOW Urine Clarity CLEAR (CLEAR) Urine pH 7.0 (5.0-7.5) PH Ur Specific [place] 1.010 (1.002-1.030) Urine Protein NEGATIVE (NEGATIVE) mg/dL Urine Glucose (UA) NEGATIVE (NEGATIVE) mg/dL Urine Ketones NEGATIVE (NEGATIVE) mg/dL Urine Occult Blood NEGATIVE (NEGATIVE) Urine Nitrite NEGATIVE (NEGATIVE) Urine Bilirubin NEGATIVE (NEGATIVE) Urine Urobilinogen 0.2 (NORMAL) (NORMAL) E.U./dL Ur Leukocyte Esterase SMALL H (NEGATIVE) Urine RBC 0-5 (0-5) /HPF Urine WBC 0-3 (0-5) /HPF Ur Squamous Epith Cells FEW Squamous (<= Few) Urine Bacteria Few (None Seen) /HPF Urine Culture Comments INDICATED Assessment/Plan - Problem List (1) Kidney calculi Impression: 27 yo with a 23w0d IUP. Resolving right kidney stone. Will convert patient to oral dilaudid and change CATHETER FINISHER AND INSPECTOR to on demand only. Hopefully will discharge to home later today. Will need urology consult after she goes home.
[2017-01-17] MEDS ORDERED: MORPHINE PCA 50 MG IV PRN (08:56)
[2017-01-17] MEDS: DOCUSATE SODIUM 100 MG CAPSULE PO SCH (09:02)
[2017-01-17] MEDS: POTASSIUM CHLORIDE 10 MEQ CAPSULE PO SCH (09:02)
[2017-01-17] MEDS: PRENATAL VITAMIN TABLET PO SCH (09:02)
[2017-01-17] MEDS: TAMSULOSIN 0.4 MG CAPSULE PO SCH (09:03)
[2017-01-17] MEDS: HYDROmorphone 2 MG TABLET PO PRN ×3 (09:33→15:36)
--- NOTE | 2017-01-17 10:58 | DISCHARGE SUMMARY ---
DATE OF ADMISSION: 01/15/2017 DATE OF DISCHARGE: 01/17/2017 DIAGNOSES ON ADMISSION 1. A 21-year-old G2, P1-0-0-1 with a 22-3/7-week intrauterine . 2. Left renal calculus. DIAGNOSES ON DISCHARGE 1. A 21-year-old G2, P1-0-0-1 with a 23-0/7-week intrauterine . 2. Resolved bilateral renal calculi. BRIEF HISTORY: This is a patient of [facility] who presented on 01/13/2017 with complaints of acute onset of left flank pain. She unfortunately had passed left renal lithiasis on 01/07/2017 and was given IV Dilaudid overnight. This pain recurred again on the left side and she had to be admitted for IV hydration, as well as for IV narcotics. The patient was placed on a fentanyl ENTRY LEVEL TRUCK DRIVER where her symptoms seemed to improve on hospital day #2. The patient was converted to p.o. narcotics. Her pain, however, rapidly escalated, but this time on the right side. Repeat retroperitoneal ultrasound showed improvement of left hydroureter and some signs of hydronephrosis on the right side. The patient was placed on a morphine ENTRY LEVEL TRUCK DRIVER due to a fentanyl and Dilaudid shortage. The pain gradually improved and she once again was converted on p.o. narcotics; this time specifically Dilaudid. Dr. Wright called the [facility] who recommended the patient be evaluated at the Urology Clinic should the symptoms get worse. status was reassuring throughout her entire hospital stay. The patient will be discharged to home on hospital day #4, 01/17/2017. She will be given a prescription for p.o. Dilaudid 2 mg, #30 tablets. Will encourage her to continue increased oral fluids. I discussed with her that given she is having 2 episodes of kidney stones during this , she likely will experience this again before she delivers. Should she require continuous narcotic treatment, there will be concern for abstinence syndrome; therefore, she would need to be seen at a higher level of care. The patient otherwise is to follow up with us at [facility] for her routine visit. She has not shown any signs of bacteria during any of her urinalysis specimens so I will postpone giving her any antibiotics at this time. The patient was also given Flomax during her hospitalization and we will continue this for now since it is a category B medication. This will be faxed over to [facility] in [place]. JOB #: [id number] EXT JOB #:[id number] MTDD
[2017-01-17 16:30] VITALS: BP 118/67
== END 2017-01-17 17:30 | disposition home or self-care (01) | DRG 781 ==
LOC: WFO 23:33 → FBP 23:34 → WFO 01-13 11:26 → UNDOADMOB 01-13 11:27 → FBP 01-13 11:27 → OBSVTOIN 01-15 08:37
PROVIDERS: ADMIT Obstetrics & Gynecology; ATTEND Obstetrics & Gynecology
DX: O99.89 Other specified diseases and conditions complicating pregnancy, childbirth and the puerperium (principal); N13.2 Hydronephrosis with renal and ureteral calculous obstruction; Z68.41 Body mass index [BMI] 40.0-44.9, adult; O99.612 Diseases of the digestive system complicating pregnancy, second trimester; K59.00 Constipation, unspecified; R11.0 Nausea; R51 Headache; O99.212 Obesity complicating pregnancy, second trimester; E66.9 Obesity, unspecified; O99.512 Diseases of the respiratory system complicating pregnancy, second trimester; J45.20 Mild intermittent asthma, uncomplicated; O34.12 Maternal care for benign tumor of corpus uteri, second trimester; D25.9 Leiomyoma of uterus, unspecified; Z3A.22 22 weeks gestation of pregnancy; Z87.442 Personal history of urinary calculi
CPT/HCPCS: 36415; 76770; 76775; 80048; 81001; 81003; 85025; 87086; 94640; 96361; 96365; 96366; 96375; 96376; 99214

== ENCOUNTER 2017-01-29 13:42 | Observation (INO) | payer MEDICAID ==
--- NOTE | 2017-01-29 14:33 | HISTORY & PHYSICAL EXAMINATION ---
DATE OF ADMISSION: 01/29/2017 DIAGNOSES 1. A 24-week, 5-day gestation. 2. Acute viral syndrome, with dehydration. 3. Urolithiasis. The patient is a 21-year-old , 2, para 1-0-0-1, a woman at 24 weeks and 5 days' gest ation, who "feels absolutely miserable." She relates that she has not been able to keep anything down for the last 24 hours after and has developed a nonbilious, nonbloody emesis coupled with diarrhea. Her son developed similar symptoms 2 days ago. She reports a low-grade fever and chills. REPORT ENDS HERE, INCOMPLETE copied and pasted to continuation 01/29/2017 at 1345 hours damaris JOB #: [id number] EXT JOB #:[id number]
--- NOTE | 2017-01-29 14:39 | HISTORY & PHYSICAL EXAMINATION ---
DATE OF ADMISSION: 01/29/2017 DIAGNOSES 1. 24-week, 5-day gestation. 2. Acute viral syndrome, with dehydration. 3. Urolithiasis. The patient is a 21-year-old , 2, para 1-0-0-1, a woman at 24 weeks 5 days' gestation, who "feels absolutely miserable." She relates that she has not been able to keep anything down for the last 24 hours. She has developed a nonbilious, nonbloody emesis coupled with diarrhea. Her son developed similar symptoms 2 days ago. She reports a low-grade fever and chills. The patient is known to have urolithiasis and has been admitted twice before for pain control. Currently she does not report significant flank pain or hematuria. PAST SURGICAL HISTORY: In 2013, cystoscopic removal of a kidney stone. PAST MEDICAL HISTORY: No chronic diseases reported. FAMILY HISTORY: Asthma, depression, diabetes. No congenital anomalies, retardation, or chromosomal anomalies. ALLERGIES: NO KNOWN DRUG ALLERGIES. MEDICATIONS: vitamins with iron. 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 Denies current drug, tobacco, or alcohol use. REVIEW OF SYSTEMS CONSTITUTIONAL: Positive malaise. Positive fatigue and fever. HEENT: Nasal discharge. No sinus pain. Otherwise, negative. LUNGS: Negative. CARDIAC: Negative. BREASTS: Negative. GASTROINTESTINAL: Positive diarrhea. Positive nonbilious, nonbloody vomiting. Mild abdominal pain from retching. SKIN: Negative for rash. GENITOURINARY: No bleeding, discharge, or uterine contractions. NEUROLOGIC: Mild headache. No other complaints. PHYSICAL EXAMINATION GENERAL: Patient acutely ill. Over-dressed due to chilling. Pale. VITAL SIGNS: Office temp was 97.8. HEENT/NECK: Supple neck. EOMI. Coryza. Nasal discharge. Mild pharyngitis. No lymphadenopathy. No thyromegaly. Dry mucous membranes. LUNGS: Clear to auscultation. CARDIAC: Regular. No murmur. No gallop. ABDOMEN: No organomegaly. Nontender. No CVA tenderness. Uterus appropriate size , about 25 cm. Acontractile. Nontender. GENITOURINARY: Exam deferred. EXTREMITIES: Nonedematous. Clammy. No calf tenderness. NEUROLOGIC: Grossly intact. SKIN: Survey of the skin finds no rash. LABORATORY DATA: Urinalysis, CBC, and influenza swabs pending. ASSESSMENT: The patient has acute viral syndrome that has resulted in dehydration. No obstetrical consequence noted. Not thought to be a manifestation of her urolithiasis. The patient will require IV fluid support and possible correction of electrolytes since she is unable to hold anything down. PLAN 1. Observation off of labor and delivery floor. 2. CBC, comprehensive chemistry panel, and urinalysis; influenza swabs. 3. Lactated Ringer bolus, followed by a 6-hour rate. 4. Zofran and Phenergan as needed to combat nausea. JOB #: [id number] EXT JOB #:[id number] LOGAN
[2017-01-29] MEDS ORDERED: ONDANSETRON 4 MG/2 ML VIAL IVP PRN (14:56)
[2017-01-29] MEDS ORDERED: PROMETHAZINE 12.5 MG SUPP PR PRN (14:57)
[2017-01-29] MEDS: LACTATED RINGERS 1,000 ML IV SCH ×2 (16:15→22:29)
[2017-01-29] MEDS: SODIUM CHLORIDE FLUSH 0.9% 10 ML SYRINGE IVP PRN ×2 (16:15→16:54)
[2017-01-29] MEDS: fentaNYL 100 MCG/2 ML VIAL IVP PRN ×2 (16:54→18:50)
--- NOTE | 2017-01-29 19:56 | PROVIDER PROGRESS NOTE ---
Subjective - Prog Note Date Prog Note Date: 01/29/17 Prog Note Time: 18:40 - Subjective Pt reports feeling: No change Subjective: Patient's flu swabs came back positive. She did not receive influenza vaccine. She continues to complain of right flank pain and requests narcotic.Sustained hospital and outpatient use of narcotic (fentanyl, morphine, oxycodone) has a highRisk of addiction for mother and fetus. Discussed this with the patientAnd informed her that if sustained narcotic medication is necessary urology evaluation should be arranged. Additionally,We would not be able to continue her care nor would she be able to deliver at [facility] due to risk of withdrawal syndrome. Fentanyl was discontinued With the initiation of IV Tylenol And Tamiflu. Objective - Vital Signs/Intake & Output Vital Signs: Vital Signs x48h Temp Pulse Resp BP BP Pulse Ox 01/29/17 19:46 99.2 F 109 H 20 100/44 L 97 01/29/17 15:27 98.7 F 101 H 24 109/69 97 01/29/17 13:56 97.7 F 108 H 18 131/61 H 98 Intake & Output: Intake & Output 01/26/17 01/27/17 01/28/17 01/29/17 23:59 23:59 23:59 23:59 Intake Total 120 Balance 120 - Lab Results Other Labs: Lab Results x24hrs 01/29/17 Range/Units 16:00 Influenza A (Rapid) POSITIVE H (Negative) Influenza B (Rapid) Negative (Negative) Influenza Types A,B Ag + H
[2017-01-29] MEDS: ACETAMINOPHEN 1,000 MG/100 ML 100 ML IV SCH (20:46)
[2017-01-29] MEDS: OSELTAMIVIR 75 MG CAPSULE PO SCH ×2 (20:46→22:37)
[2017-01-29] MEDS: SODIUM CHLORIDE FLUSH 0.9% 10 ML SYRINGE IVP SCH (22:30)
[2017-01-30] MEDS: ACETAMINOPHEN 1,000 MG/100 ML 100 ML IV SCH ×3 (02:04→14:28)
[2017-01-30] MEDS: SODIUM CHLORIDE FLUSH 0.9% 10 ML SYRINGE IVP SCH ×2 (03:58→14:28)
[2017-01-30] MEDS: LACTATED RINGERS 1,000 ML IV SCH ×3 (04:19→15:53)
[2017-01-30 08:14] LABS: BASOPHILS % (AUTO) 0.3 %; EOSINOPHILS # (AUTO) 0.1 10^3/uL (0.0-0.7); EOSINOPHILS % (AUTO) 0.9 %; HCT - HEMATOCRIT 32.3 % (37.0-47.0); LYMPHOCYTES # (AUTO) 1.3 10^3/uL (1.5-3.5); LYMPHOCYTES % (AUTO) 18.7 %; MEAN CORPUSCULAR HEMOGLOBIN 29.5 pg (27.0-31.0); MEAN CORPUSCULAR VOLUME 86.7 fL (81.0-99.0); MEAN PLATELET VOLUME 7.6 fL (7.9-10.8); MONOCYTES # (AUTO) 0.5 10^3/uL (0.0-1.0); MONOCYTES % (AUTO) 6.7 %; NEUTROPHILS # (AUTO) 5.2 10^3/uL (1.5-6.6); NEUTROPHILS % (AUTO) 73.4 %; RED BLOOD COUNT 3.72 10^6/uL (4.20-5.40); RED CELL DISTRIBUTION WIDTH 13.4 % (12.0-15.0); UNCORRECTED WHITE BLOOD COUNT 7.1 x10^3/uL; WHITE BLOOD COUNT 7.1 x10^3/uL (4.8-10.8)
[2017-01-30] MEDS: OSELTAMIVIR 75 MG CAPSULE PO SCH ×2 (08:23→18:41)
[2017-01-30 08:33] LABS: ALBUMIN/GLOBULIN RATIO 0.9 (1.0-2.2); BILIRUBIN,TOTAL 0.5 mg/dL (0.2-1.0); CALCIUM 8.1 mg/dL (8.5-10.3); CREATININE 0.5 mg/dL (0.4-1.0); POTASSIUM 2.9 mmol/L (3.5-5.0)
--- NOTE | 2017-01-30 08:54 | PROVIDER PROGRESS NOTE ---
Subjective - Prog Note Date Prog Note Date: 01/30/17 Prog Note Time: 08:00 - Subjective Pt reports feeling: Improved Subjective: Patient reports feeling better and resolution of fever. She still is weak and experiencing malaise.No cough shortness of breath or abdominal pain. No diarrhea reported. Objective - Vital Signs/Intake & Output Vital Signs: Vital Signs x48h Temp Pulse Resp BP BP Pulse Ox 01/30/17 08:13 97.4 F L 92 18 98/51 L 96 01/30/17 05:00 98.1 F 87 18 127/57 L 96 Intake & Output: Intake & Output 01/27/17 01/28/17 01/29/17 01/30/17 23:59 23:59 23:59 23:59 Intake Total 2326 1168.333 Balance 2326 1168.333 - Lab Results Fish Bones: 01/30/17 08:10 01/30/17 08:10 Other Labs: Lab Results x24hrs 01/30/17 01/30/17 01/29/17 Range/Units 08:10 08:10 16:00 WBC 7.1 (4.8-10.8) x10^3/uL RBC 3.72 L (4.20-5.40) 10^6/uL Hgb 11.0 L (12.0-16.0) g/dL Hct 32.3 L (37.0-47.0) % MCV 86.7 (81.0-99.0) fL MCH 29.5 (27.0-31.0) pg MCHC 34.0 (32.0-36.0) g/dL RDW 13.4 (12.0-15.0) % Plt Count 190 (130-450) 10^3/uL MPV 7.6 L (7.9-10.8) fL Neut # 5.2 (1.5-6.6) 10^3/uL Lymph # 1.3 L (1.5-3.5) 10^3/uL [place] # 0.5 (0.0-1.0) 10^3/uL Eos # 0.1 (0.0-0.7) 10^3/uL Baso # 0.0 (0.0-0.1) 10^3/uL Absolute Nucleated RBC 0.00 x10^3/uL Nucleated RBC % 0.0 /100WBC Sodium 135 (135-145) mmol/L Potassium 2.9 L (3.5-5.0) mmol/L Chloride 108 (101-111) mmol/L Carbon Dioxide 22 (21-32) mmol/L Anion Gap 5.0 L (6-13) BUN 6 (6-20) mg/dL Creatinine 0.5 (0.4-1.0) mg/dL Estimated GFR (MDRD) 153 (>89) Glucose 89 (70-100) mg/dL Calcium 8.1 L (8.5-10.3) mg/dL Total Bilirubin 0.5 (0.2-1.0) mg/dL AST 14 (10-42) IU/L ALT 12 (10-60) IU/L Alkaline Phosphatase 67 (42-121) IU/L Total Protein 6.0 L (6.7-8.2) g/dL Albumin 2.9 L (3.2-5.5) g/dL Globulin 3.1 (2.1-4.2) g/dL Albumin/Globulin Ratio 0.9 L (1.0-2.2) Influenza A (Rapid) POSITIVE H (Negative) Influenza B (Rapid) Negative (Negative) Influenza Types A,B Ag + H Exam - Vitals Vitals:: Temp Pulse Resp BP Pulse Ox 97.4 F L 92 18 98/51 L 96 01/30/17 08:13 01/30/17 08:13 01/30/17 08:13 01/30/17 08:13 01/30/17 08:13 - Cardiac Cardiac:: positive: RRR - Pulmonary Pulm:: positive: CTA-B Assess/Plan - Patient Problems Active Problems Comments: Influenza is responding to Tamiflu and IV Tylenol. Still urolithiasis remains a concern. Would recommend patient to have a evaluation by urology at some point. - Additional Planning My Orders: My Active Orders 01/29/17 14:51 Activity Orders [RC] Routine IO [RC] IOSHIFT Initiate Bowel Care Protocol [RC] .protocol Initiate Flu Vaccine Screening [RC] ONCE Initiate Line Care Protocol [RC] .protocol Initiate Personal Care Protoco [RC] .protocol Initiate Pneumonia Vaccine Scr [RC] ONCE Oxygen Therapy [RC] .PRN Vital Signs [RC] Q4HR Sodium Chloride Flush 0.9% [Normal Saline Flush 0.9%] 10 ml IVP PRN PRN Code Status [OTHERS] Routine Condition of Patient [OTHERS] Routine DVT Prophylaxis [OTHERS] Routine 01/29/17 14:56 Ondansetron Inj [Zofran Inj] 4 mg IVP Q4HR PRN 01/29/17 14:57 Promethazine Sup [Phenergan Supp] 12.5 mg MO TID PRN 01/29/17 15:00 Lactated Ringers [Lr] 1,000 ml IV 166 mls/hr 01/29/17 20:00 Acetaminophen 1,000 mg/100 ml [Ofirmev] 100 ml IV Q6H Oseltamivir [Tamiflu] 75 mg PO BID 01/29/17 22:00 Sodium Chloride Flush 0.9% [Normal Saline Flush 0.9%] 10 ml IVP Q8HR 01/29/17 Dinner Clear Liquid Diet [DIET]
[2017-01-30 12:41] VITALS: BP 109/60
[2017-01-30] MEDS: POTASSIUM CHLOR 10 MEQ/100 ML 10 MEQ/100 ML BAG IV SCH ×2 (16:37→17:39)
--- NOTE | 2017-01-30 16:38 | Discharge Plan ---
Discharge Plan Disposition: 01 Home, Self Care Condition: Stable Diet: Regular Activity Restrictions: Activity as Tolerated Shower Restrictions: No Driving Restrictions: Yes (Do not drive until influenza improves) Additional Instructions or Follow Up instructions: Patient should rest at home and push clear fluids. She should take Tylenol 500 mg 2 tabs every 4 hours every 6 hours as needed pain and malaise. Do not needlessly expose others to the flu. Recommend that family members receive influenza vaccine No Smoking: If you smoke, Please STOP! Call for help.
== END 2017-01-30 18:50 | disposition home or self-care (01) ==
LOC: WFO 13:42 → OBS 13:46
PROVIDERS: ADMIT Obstetrics & Gynecology; ATTEND Obstetrics & Gynecology
DX: O99.512 Diseases of the respiratory system complicating pregnancy, second trimester (principal); J11.1 Influenza due to unidentified influenza virus with other respiratory manifestations; O99.282 Endocrine, nutritional and metabolic diseases complicating pregnancy, second trimester; E86.0 Dehydration; O99.89 Other specified diseases and conditions complicating pregnancy, childbirth and the puerperium; N20.0 Calculus of kidney; Z3A.24 24 weeks gestation of pregnancy
CPT/HCPCS: 36415; 80053; 85025; 87275; 87276; 96361; 96365; 96366; 96367; 96375; 96376; A9270; J0131; J7120

== ENCOUNTER 2017-04-04 09:45 | Outpatient (CLI) | payer MEDICAID ==
--- NOTE | 2017-04-06 14:02 | Ultrasound Report ---
OB FOLLOWUP: 04/04/2017 CLINICAL HISTORY: Incomplete anatomy. COMPARISON: anatomy scan 12/27/2016. TECHNIQUE: Real-time scanning was performed with claim service representative static images obtained. LAST MENSTRUAL PERIOD 08/07/2016 Clinical Age 34 weeks 2 days US Age 35 weeks 2 days EFW Hadlock 2545 g EFW% Hadlock --- Heart Rate 133 bpm EDC 05/14/2017 US EDC 05/07/2017 BPD Hadlock 36 weeks 0 days; Mean mm 89 HC Hadlock 36 weeks 5 days; Mean mm 324 AC Hadlock 35 weeks 1 day; Mean mm 312 FL Hadlock 33 weeks 2 days; Mean mm 64 Presentation cephalic Placental Location posterior Cervical Length --- Amniotic Fluid 15.9 cm FINDINGS There is a single viable intrauterine gestation, in cephalic presentation. heart rate is 133 BPM. The placenta is posterior, without evidence of previa. Amniotic fluid volume is normal, with an JUMA of 15.9. By size, the fetus measures 35 weeks 2 days (34 weeks 2 days by anatomy scan). The facial structures appear unremarkable. The cardiac structures are not well visualized, due to late dates and positioning. No free fluid or adnexal lesion is appreciated. IMPRESSION: Single viable intrauterine gestation, with expected growth from previous sonogram. Unremarkable appearance of the facial structures. Limited visualization of the cardiac structures, due to positioning and late dates. TD: 04/04/2017 18:25 MTDD
== END 2017-04-04 09:46 | disposition home or self-care (01) ==
LOC: DI 09:45
PROVIDERS: ATTEND Obstetrics & Gynecology
DX: Z36.3 Encounter for antenatal screening for malformations (principal); Z3A.29 29 weeks gestation of pregnancy
CPT/HCPCS: 76816

== ENCOUNTER 2017-04-16 16:09 | Emergency (ER) | payer MEDICAID ==
[2017-04-16 16:24] VITALS: BP 124/75
[2017-04-16] MEDS ORDERED: IPRATROPIUM/ALBUTEROL 3 ML NEB INH STA (17:16)
[2017-04-16] MEDS ORDERED: DEXAMETHASONE 10 MG/ML VIAL PO STA (17:16)
--- NOTE | 2017-04-16 17:45 | ED Physician Documentation ---
PD HPI URI - Stated complaint Stated Complaint: SOA/COUGH 35 WK OB - Chief complaint Chief Complaint: Resp - History obtained from History obtained from: Patient, Family - History of Present Illness Timing - onset: How many days ago (9) Timing duration: Days (9) Timing details: Gradual onset, Still present Associated symptoms: Ear pain, Nasal congestion, Rhinorrhea, Productive cough, Dyspnea. No: Fever Contributing factors: Sick contact ( sick with similar) Improves by: Rest, Medication, MDI/nebulizer Worsened by: Activity Similar symptoms before: Diagnosis (asthma) Recently seen: Other (getting routine OB care.) - Additional information Additional information: 21-year-old female is 35 weeks and has developed a cough and congestion and shortness of breath. She has had these issues previously numerous times and has an albuterol inhaler she usually uses. She has used all of her inhaler and this with this issue. She does have nasal congestion and pain in her ears as well. Review of Systems Constitutional: reports: Fatigue. denies: Fever Eyes: denies: Decreased vision Ears: reports: Ear pain Nose: reports: Rhinorrhea / runny nose, Congestion Throat: reports: Sore throat Cardiac: denies: Chest pain / pressure, Palpitations Respiratory: reports: Dyspnea, Cough, Wheezing GI: denies: Abdominal Pain, Nausea, Vomiting PD PAST MEDICAL HISTORY - Past Medical History Cardiovascular: None Respiratory: Asthma Neuro: None Endocrine/Autoimmune: None GI: None NUTRIENT MANAGEMENT SPECIALIST: None : Kidney stones HEENT: None Psych: None Musculoskeletal: None Derm: None - Past Surgical History Past Surgical History: Yes - Present Medications Home Medications: Ambulatory Orders Medication Instructions Recorded Confirmed Albuterol Sulfate [Proair Hfa 2 puffs IH QID #1 hfa.aer.ad 06/04/16 08/18/16 Inhaler] predniSONE [Deltasone] 60 mg PO DAILY 5 Days tablet 08/18/16 Albuterol Sulf [Ventolin Hfa 1 - 2 puffs INH Q4HR PRN #1 inhaler 04/16/17 Inhaler] Azithromycin [Zithromax] 250 mg PO DAILY #6 tablet 04/16/17 Benzonatate [Tessalon] 100 - 200 mg PO TID PRN #20 capsule 04/16/17 - Allergies Allergies/Adverse Reactions: Allergies Allergy/AdvReac Type Severity Reaction Status Date / Time No Known Drug Allergies Allergy Verified 08/18/16 20:18 - Social History Does the pt smoke?: No Smoking Status: Former smoker Does the pt drink ETOH?: No Does the pt have substance abuse?: No - Immunizations Immunizations are current?: Yes - POLST Patient has POLST: No PD ED PE NORMAL - Vitals Vital signs reviewed: Yes (Normal) - General General: Alert and oriented X 3, No acute distress, Well developed/nourished, Other (21-year-old female is coughing rhonchorously frequently and has some coughing paroxysms she is not able to stop.) - HEENT HEENT: Atraumatic, PERRL, EOMI, Other (right TM more inflamed than left. ) - Neck Neck: Supple, no meningeal sign, No bony TTP - Cardiac Cardiac: RRR, No murmur - Respiratory Respiratory: No respiratory distress, Other (scattered wheezes and rhonchi) - Abdomen Abdomen: Soft, Non tender - Back Back: No CVA TTP, No spinal TTP - Derm Derm: Normal color, Warm and dry, No rash - Extremities Extremities: No deformity, No edema - Neuro Neuro: Alert and oriented X 3, belly dancer 2-12 intact, No motor deficit, No sensory deficit, Normal speech Eye Opening: Spontaneous Motor: Obeys Commands Verbal: Oriented GCS Score: 15 - Psych Psych: Normal mood, Normal affect Results - Vitals Vitals: Vital Signs - 24 hr 04/16/17 04/16/17 16:20 17:25 Temperature 36.7 C Heart Rate 93 86 Respiratory 18 18 Rate Blood Pressure 124/75 O2 Saturation 97 Oxygen O2 Source Room air PD MEDICAL DECISION MAKING - ED course Complexity details: reviewed results, re-evaluated patient, considered differential, d/w patient, d/w family ED course: 21-year-old female 35 weeks with cough congestion and wheezing has otitis on exam and here in the emergency department she is given a DuoNeb treatment dexamethasone and we will place her on some azithromycin as well. We will refill her albuterol inhaler as well. Departure - Departure Disposition: 01 Home, Self Care Clinical Impression: Acute asthma exacerbation Qualifiers: Asthma severity: moderate Asthma persistence: unspecified Qualified Code(s): J45.901 - Unspecified asthma with (acute) exacerbation Otitis media Qualifiers: Otitis media type: suppurative Chronicity: acute Laterality: bilateral Recurrence: not specified as recurrent Spontaneous tympanic membrane rupture: without spontaneous rupture Qualified Code(s): H66.003 - Acute suppurative otitis media without spontaneous rupture of ear drum, bilateral Condition: Stable Instructions: ED Reactive Airway Disease, ED Otitis Media Acute Adult Follow-Up: [facility] [Provider Group] Prescriptions: Albuterol Sulf [Ventolin Hfa Inhaler] 1 - 2 puffs INH Q4HR PRN #1 inhaler PRN Reason: Shortness Of Air/Wheezing Azithromycin [Zithromax] 250 mg PO DAILY #6 tablet Benzonatate [Tessalon] 100 - 200 mg PO TID PRN #20 capsule PRN Reason: Cough
== END 2017-04-16 18:08 | disposition home or self-care (01) ==
LOC: ED 16:09
DX: O99.513 Diseases of the respiratory system complicating pregnancy, third trimester (principal); J45.901 Unspecified asthma with (acute) exacerbation; O99.89 Other specified diseases and conditions complicating pregnancy, childbirth and the puerperium; H66.003 Acute suppurative otitis media without spontaneous rupture of ear drum, bilateral; Z3A.35 35 weeks gestation of pregnancy; Z87.891 Personal history of nicotine dependence
CPT/HCPCS: 94640; 99281; 99283; J7620

== ENCOUNTER 2017-04-30 14:41 | Outpatient (CLI) | payer MEDICAID | END 2017-04-30 14:42 | disposition home or self-care (01) | LOC: LAB.R 14:41 | PROVIDERS: ATTEND Obstetrics & Gynecology | DX: Z36.85 Encounter for antenatal screening for Streptococcus B (principal) | CPT/HCPCS: 87081 ==

== ENCOUNTER 2017-05-07 09:26 | Outpatient (CLI) | payer MEDICAID ==
--- NOTE | 2017-05-09 15:56 | Ultrasound Report ---
DATE OF SERVICE: 05/07/2017 OB FOLLOWUP: 05/07/2017 CLINICAL INDICATION: Incomplete anatomy. TECHNIQUE: Real-time scanning was performed with territory account representative static images obtained. LAST MENSTRUAL PERIOD: 08/07/2016 Clinical Age: 39 weeks 0 days US Age: 39 weeks 5 days EFW Hadlock: 4026 grams EFW% Hadlock: -- Heart Rate: 152 bpm EDC: 05/14/2017 US EDC: 05/09/2017 BPD Hadlock: 39 weeks 6 days; Mean mm 97 HC Hadlock: 39 weeks 6 days; Mean mm 344 AC Hadlock: -- weeks -- days; Mean mm 366 FL Hadlock: 39 weeks 4 days; Mean mm 77 Presentation: cephalic Placental Location: posterior Cervical Length: --- Amniotic Fluid: 17.07 cm FINDINGS: There is a single viable intrauterine gestation, in cephalic presentation. heart rate is 152 BPM. The placenta is posterior, without evidence of previa. Amniotic fluid volume is normal, with an JUMA of 17. The heart 4-chamber view is well visualized, and appears unremarkable. The ventricular outflow tracts are again not well visualized. No free fluid or adnexal lesion is appreciated. The fetus measures 39 weeks 5 days by size (39 weeks 0 days by dating on the order). IMPRESSION: Normal 4-chamber heart visualized on today's examination. Ventricular outflow tracts are again suboptimally visualized. damaris TD: 05/07/2017 20:15 MTDD
== END 2017-05-07 09:27 | disposition home or self-care (01) ==
LOC: DI 09:26
PROVIDERS: ATTEND Obstetrics & Gynecology
DX: Z36.3 Encounter for antenatal screening for malformations (principal)
CPT/HCPCS: 76816

== ENCOUNTER 2017-05-16 19:55 | Inpatient (IN) | payer MEDICAID ==
[2017-05-16] MEDS ORDERED: LIDOCAINE 1% 50 ML MDV IV ONE (22:00)
[2017-05-16] MEDS ORDERED: LACTATED RINGERS 1,000 ML BAG IV ONE (22:00)
[2017-05-16] MEDS ORDERED: LACTATED RINGERS 1,000 ML IV ONE (22:07)
[2017-05-16] MEDS: LACTATED RINGERS 1,000 ML IV SCH ×2 (22:10→23:11)
[2017-05-16] MEDS ORDERED: ONDANSETRON 4 MG/2 ML VIAL IVP PRN (22:20)
[2017-05-16] MEDS ORDERED: SODIUM CHLORIDE FLUSH 0.9% 10 ML SYRINGE IVP PRN (22:20)
[2017-05-16] MEDS ORDERED: fentaNYL 100 MCG/2 ML VIAL IVP PRN (22:20)
--- NOTE | 2017-05-16 22:20 | PROVIDER PROGRESS NOTE ---
Labor Progress Note - Uterine Monitoring Uterine Monitoring Mode: positive: External toco Contraction Frequency (min/apart): Q4min Contraction Intensity: positive: Moderate to strong Uterine Resting Tone: positive: Soft - Monitoring Monitor Mode: positive: External ultrasound Heart Rate Baseline: 130's Heart Rate Variability: positive: Moderate (6-25 bmp) Accelerations: positive: Present, 15x15 Decelerations: positive: None - Vaginal Exam Dilation (in cm): 5 (per RN) Effacement (%): 90 Station: -1 - Labor Progress Note Labor Progress Note/Additional Text: 21 yo with a 40w0d IUP Active labor GBS negative Did not do 1 hr GTT Admit CBC, type and hold, random glucose Epidural PRN Expect H&P Dictated [id number]
[2017-05-16] MEDS ORDERED: fent/BUPIV 2 MCG/0.125% 250 ML EP ONE (22:58)
[2017-05-16 23:03] LABS: BASOPHILS # (AUTO) 0.1 10^3/uL (0.0-0.1); BASOPHILS % (AUTO) 0.5 %; EOSINOPHILS # (AUTO) 0.2 10^3/uL (0.0-0.7); EOSINOPHILS % (AUTO) 1.2 %; HGB - HEMOGLOBIN 11.6 g/dL (12.0-16.0); LYMPHOCYTES # (AUTO) 3.8 10^3/uL (1.5-3.5); LYMPHOCYTES % (AUTO) 20.4 %; MEAN CORPUSCULAR HEMOGLOBIN 28.8 pg (27.0-31.0); MEAN CORPUSCULAR HGB CONC 32.8 g/dL (32.0-36.0); MEAN CORPUSCULAR VOLUME 87.9 fL (81.0-99.0); MEAN PLATELET VOLUME 9.1 fL (7.9-10.8); MONOCYTES # (AUTO) 1.3 10^3/uL (0.0-1.0); MONOCYTES % (AUTO) 6.9 %; NEUTROPHILS # (AUTO) 13.4 10^3/uL (1.5-6.6); PLT - PLATELET COUNT 256 10^3/uL (130-450); RED BLOOD COUNT 4.03 10^6/uL (4.20-5.40); RED CELL DISTRIBUTION WIDTH 14.6 % (12.0-15.0); WHITE BLOOD COUNT 18.9 x10^3/uL (4.8-10.8)
--- NOTE | 2017-05-17 00:13 | PROVIDER PROGRESS NOTE ---
Labor Progress Note - Uterine Monitoring Uterine Monitoring Mode: positive: External toco Contraction Intensity: positive: Moderate to strong Uterine Resting Tone: positive: Soft - Monitoring Monitor Mode: positive: External ultrasound Heart Rate Variability: positive: Moderate (6-25 bmp) Accelerations: positive: Present, 15x15 Decelerations: positive: None Strip Review: positive: Category I - Vaginal Exam Dilation (in cm): 8 Effacement (%): 90 Station: -1 Cervical Position: Posterior - Labor Progress Note Labor Progress Note/Additional Text: 21 yo with a 40w1d IUP Active labor Epidural in place and working well Expect Labs, EKG, Meds, Allergy - Lab Results Fish Bones: 05/16/17 22:10 Other Lab Results: Lab Results x24hrs 05/16/17 Range/Units 22:10 WBC 18.9 H (4.8-10.8) x10^3/uL RBC 4.03 L (4.20-5.40) 10^6/uL Hgb 11.6 L (12.0-16.0) g/dL Hct 35.4 L (37.0-47.0) % MCV 87.9 (81.0-99.0) fL MCH 28.8 (27.0-31.0) pg MCHC 32.8 (32.0-36.0) g/dL RDW 14.6 (12.0-15.0) % Plt Count 256 (130-450) 10^3/uL MPV 9.1 (7.9-10.8) fL Neut # 13.4 H (1.5-6.6) 10^3/uL Lymph # 3.8 H (1.5-3.5) 10^3/uL [place] # 1.3 H (0.0-1.0) 10^3/uL Eos # 0.2 (0.0-0.7) 10^3/uL Baso # 0.1 (0.0-0.1) 10^3/uL Absolute Nucleated RBC 0.01 x10^3/uL Nucleated RBC % 0.0 /100WBC - Medications Medications: Ambulatory Orders Medication Instructions Recorded Confirmed Albuterol Sulfate [Proair Hfa 2 puffs IH QID #1 hfa.aer.ad 06/04/16 08/18/16 Inhaler] predniSONE [Deltasone] 60 mg PO DAILY 5 Days tablet 08/18/16 Albuterol Sulf [Ventolin Hfa 1 - 2 puffs INH Q4HR PRN #1 inhaler 04/16/17 Inhaler] Azithromycin [Zithromax] 250 mg PO DAILY #6 tablet 04/16/17 Benzonatate [Tessalon] 100 - 200 mg PO TID PRN #20 capsule 04/16/17 - Allergy Allergy: Allergies Allergy/AdvReac Type Severity Reaction Status Date / Time No Known Drug Allergies Allergy Verified 08/18/16 20:18 Albuterol Sulfate [Proair Hfa Inhaler] 2 puffs IH QID #1 hfa.aer.ad 06/04/16 predniSONE [Deltasone] 60 mg PO DAILY 5 Days tablet 08/18/16 Albuterol Sulf [Ventolin Hfa Inhaler] 1 - 2 puffs INH Q4HR PRN #1 inhaler Azithromycin [Zithromax] 250 mg PO DAILY #6 tablet 04/16/17 Benzonatate [Tessalon] 100 - 200 mg PO TID PRN #20 capsule 04/16/17
[2017-05-17] MEDS ORDERED: NALOXONE 0.4 MG/ML VIAL IVP PRN (00:21)
[2017-05-17] MEDS ORDERED: ONDANSETRON 4 MG/2 ML VIAL IVP PRN (00:21)
[2017-05-17] MEDS ORDERED: fent/BUPIV 2 MCG/0.125% 250 ML EP PRN (00:21)
[2017-05-17] MEDS ORDERED: diphenhydrAMINE INJ 50 MG/ML VIAL IVP PRN (00:21)
[2017-05-17] MEDS ORDERED: LACTATED RINGERS 500 ML IV ONE (00:21)
[2017-05-17] MEDS ORDERED: NALBUPHINE 20 MG/ML AMP IVP PRN (00:21)
[2017-05-17] MEDS ORDERED: METOCLOPRAMIDE 10 MG/2 ML VIAL IVP PRN (00:21)
[2017-05-17] MEDS ORDERED: ePHEDrine 50 MG/ML VIAL IVP PRN (00:21)
--- NOTE | 2017-05-17 02:59 | HISTORY & PHYSICAL EXAMINATION ---
DATE OF ADMISSION: 05/16/2017 IDENTIFICATION: 21 yo with a 40w0d IUP. EDC is 05/16/2017, which was changed by 7-week ultrasound. HISTORY OF PRESENT ILLNESS: This is a patient of [facility], presented on 05/16/2017 with complaints of contractions. She had been seen earlier by Dr. Wright, who thought she was about 4 cm dilated, 70% effaced. The patient apparently had her membranes stripped today. Today on Labor and Delivery her cervical examination revealed that she was 5 cm dilated, 90% effaced and -1 station. Baseline is 130s. The patient is intact and denies any loss of fluid. She is also denying any active vaginal bleeding. PAST MEDICAL HISTORY: 1. Left nephrolithiasis at 21 and 22 weeks' gestation. 2. Mild intermittent asthma. PAST SURGICAL HISTORY: 2013 removal of kidney stone ALLERGIES: No known medical allergies MEDICATIONS: vitamins SOCIAL HISTORY: She is to Luis Alfredo Headley, and she has a son named Colton, and this is a male fetus with anticipated name of Pepe. Pharmacy of choice is [facility] in [place], [place]. PCP is on [facility] in [place], [place]. PAST OBSTETRICAL HISTORY: One term spontaneous vaginal delivery at 40 weeks' gestation, a male fetus weighing 7 pounds 11 ounces. PAST GYNECOLOGIC HISTORY: She denies any abnormal Pap smears or sexually transmitted diseases. REVIEW OF SYSTEMS: Negative unless otherwise stated. PHYSICAL EXAMINATION VITAL SIGNS: Temperature is 97.7, heart rate 94, blood pressure 124/79, respiratory rate 20, O2 saturation is 99% on room air. GENERAL: The patient is a well-developed, well-nourished, female who appears to be in some distress secondary to active labor. HEENT: Within normal limits. CARDIOVASCULAR: Regular. No murmurs or rubs. PULMONARY: Lungs are clear to auscultation bilaterally. ABDOMEN: Gravid, nontender. LABORATORY DATA: Most recent fundal height is 42 cm at 40 weeks' gestation. laboratories show she is a gonorrhea and chlamydia negative. Blood type is O positive. HIV negative. anatomical survey is consistent with dates and within normal limits. Placentais posterior with a 3-vessel umbilical cord. There were limited cardiac views despite having 2 followup ultrasounds. A fundal leiomyoma measures 4.9 x 4.6 cm. The patient has not done her 1-hour GTT. GBS is negative. ASSESSMENT 1. A 21-year-old, G2, P1-0-0-1, with a 40 week, 0 day intrauterine . 2. Active labor. PLAN 1. We will admit. 2. CBC, and type and hold. 3. Epidural p.r.n. 4. Expect spontaneous vaginal delivery. 5. We will do a random glucose in addition to her CBC. TD: 05/17/2017 02:58 MTDEri
[2017-05-17] MEDS ORDERED: ROPIVACAINE 0.2% PF 10 ML VIAL EPI ONE (04:00)
[2017-05-17] MEDS: LACTATED RINGERS 1,000 ML IV SCH (04:09)
[2017-05-17] MEDS ORDERED: OXYTOCIN/SODIUM CHLORIDE 250 ML IV ONE (05:06)
--- NOTE | 2017-05-17 05:06 | DELIVERY NOTE ---
Delivery Note - Labor Labor: positive: Spontaneous - Delivery Method Delivery Method: positive: Spontaneous vaginal delivery - Presentation Presentation: positive: Vertex, AMBIKA - right occiput anterior - Nuchal Cord Nuchal Cord: positive: None - Anesthetic Anesthetic: positive: Lidocaine - 1% plain Volume: positive: Other (8) - Amniotic Fluid Description Amniotic Fluid Description: positive: Clear - Episiotomy Type Episiotomy Type: positive: None - Laceration Laceration: positive: 2nd degree, Perineal - Suture Suture Type: positive: Vicryl Suture Size: positive: 3-0 - Delivery Outcome Delivery Outcome: positive: Livebirth - [place]: positive: Placed in direct skin contact with mother sex: positive: Male : 9 : 9 - Cord Cord: positive: 3 vessels - Placenta Placenta: positive: Intact, Spontaneous - Estimated Blood Loss Estimated Blood Loss (in cc): 250 - Post Delivery Events Post Delivery Events: positive: No post delivery events - Delivery Comments (Free Text/Narrative) Delivery Comments (Free Text/Narrative): 21 yo with a 40w0d IUP presented in active labor. She received an epidural for pain control by Chilo Luna CRNA. of a viable male , "Pepe." Apgars 9/9 at 1 and 5 minutes respectively. Placenta delivered spontaneously, intact with 3VC. 2nd degree perineal laceration repaired with 3- 0 vicryl. EBL 250 mL. No complications. Will have the patient take home Rx cabergoline to prevent .
[2017-05-17] MEDS ORDERED: CABERGOLINE 0.5 MG TABLET PO ONE (05:07)
[2017-05-17] MEDS ORDERED: MAGNESIUM HYDROXIDE 2,400 MG/30 ML UDC PO PRN (05:07)
[2017-05-17] MEDS: ACETAMINOPHEN 325 MG TABLET PO SCH ×4 (05:48→20:33)
[2017-05-17] MEDS ORDERED: SODIUM CHLORIDE FLUSH 0.9% 10 ML SYRINGE IVP SCH (06:00)
[2017-05-17] MEDS: DOCUSATE SODIUM 100 MG CAPSULE PO SCH ×2 (08:03→21:04)
[2017-05-17] MEDS: CELECOXIB 100 MG CAPSULE PO SCH ×2 (08:03→21:03)
[2017-05-17] MEDS: HYDROcod/ACETAM 5/325 MG TABLET PO PRN ×2 (17:36→22:07)
[2017-05-18] MEDS: HYDROcod/ACETAM 5/325 MG TABLET PO PRN ×2 (07:47→12:32)
[2017-05-18] MEDS: DOCUSATE SODIUM 100 MG CAPSULE PO SCH (07:47)
[2017-05-18] MEDS: CELECOXIB 100 MG CAPSULE PO SCH (07:47)
[2017-05-18 13:29] VITALS: BP 100/67
--- NOTE | 2017-05-18 14:14 | PROVIDER PROGRESS NOTE ---
Subjective - Prog Note Date Prog Note Date: 05/18/17 Prog Note Time: 13:59 - Subjective Pt reports feeling: Improved Subjective: Patient in regular street clothes. Desires to go home. No nausea or vomiting. Mild vaginal bleeding. Tolerable pain with meds. Urinating without difficulty. Baby latching well. Objective - Vital Signs/Intake & Output Reviewed Vital Signs: Yes Vital Signs: Vital Signs x48h Temp Pulse Resp BP Pulse Ox 05/18/17 13:00 98.2 F 80 18 100/67 99 05/18/17 07:45 97.7 F 84 18 101/54 L 100 Intake & Output: Intake & Output 05/15/17 05/16/17 05/17/17 05/18/17 23:59 23:59 23:59 23:59 Intake Total 1000 2250 Output Total 650 Balance 1000 1600 - Objective General Appearance: positive: No acute distress Eyes Bilateral: positive: Normal inspection Abdomen: positive: Non-tender (Soft, nontender.) Skin: positive: Color nml Neurologic/Psychiatric: positive: Oriented x3 - Lab Results Fish Bones: 05/16/17 22:10 Assessment/Plan - Problem List (1) Vaginal delivery Impression: 21 yo S/p 05/17/2017 Normal recovery Discharge to home Rx sent to pharmacy motrin, colace, tylenol. Handwritten Rx vicoden. Follow up in 6 weeks Call for fevers, chills, abdominal pain, or vaginal bleeding.
--- NOTE | 2017-05-18 16:12 | Labor Flowsheet ---
Labor Flowsheet Datetime Report Generated by CPN: 05/18/2017 16:11 Datetime: 05/18/2017 12:35 VITAL SIGNS NBP Sys/Mini/Mean (mmHg): 110 : 67 : 77 Pulse: 77 SpO2 (%): 99 LaborFlag: Labor Datetime: 05/17/2017 04:31 Medication Comments: pit started at 50 Anesthesia Comments: epidural turned off Datetime: 05/17/2017 04:24 STAGE 2 Pushing: Urge to Push Pushing Position: Pushing with Contractions; Pushing Lithotomy Datetime: 05/17/2017 04:22 Membrane Comments: forebag AROM clear fluid Datetime: 05/17/2017 04:20 I/O Interventions: [place] Discontinued Patient Care Comments: lithotomy Datetime: 05/17/2017 04:14 COMMUNICATION Communication: Provider at Bedside Provider Notified (Name): Dr. Hailey Datetime: 05/17/2017 04:01 Pattern: Tachysystole: > 5 Contractions in 10 Minutes Datetime: 05/17/2017 04:00 PAIN Pain Scale: 0 Datetime: 05/17/2017 03:47 Monitor Interventions for UA: [place] Adjusted Datetime: 05/17/2017 03:40 Temperature (C): 36.9 TEACHING Instructional Method: Verbal Labor/Induction: Pushing Methods Datetime: 05/17/2017 03:34 VAGINAL EXAM Dilatation (cm): 10.0 Effacement (%): 100 Station: 1 Exam by: C.Ana, RN Datetime: 05/17/2017 03:15 Quality: Strong Resting Tone (Palpate): Relaxed Datetime: 05/17/2017 03:12 Plan of Care: Plan of Care Discussed; Vaginal Delivery Datetime: 05/17/2017 03:09 Anesthesia Level Check: T7 Datetime: 05/17/2017 02:00 Respirations: 20 Datetime: 05/17/2017 01:06 ANESTHESIA Anesthesia Plans: Epidural Datetime: 05/17/2017 01:00 Teaching Comments: routine care at delivery; vs formula feeding Datetime: 05/17/2017 00:00 Unit Routine: Medications Datetime: 05/16/2017 23:56 Comments: poor tracing d/t maternal position for epidural placement Datetime: 05/16/2017 23:53 Epidural Procedure: Loading Dose Datetime: 05/16/2017 23:37 Contraction Comments: poor tracing d/t maternal position for epidural placement Datetime: 05/16/2017 23:36 PATIENT CARE Patient Position/Activity: Right Lateral Datetime: 05/16/2017 23:13 Epidural Positioning: Sitting Datetime: 05/16/2017 23:00 Pain Presence: Intermittent Pain Type: Contraction Pain Management: Epidural Datetime: 05/16/2017 22:37 UTERINE ACTIVITY Monitor Mode: External Frequency (min): 1.5-3 Duration (sec): 90-120 ASSESSMENT A Monitor Mode: External US FHR Baseline Rate : 130 Variability: Moderate 6-25 bpm Accelerations: 15X15 Decelerations: None Category: Category I Datetime: 05/16/2017 22:33 Monitor Interventions for FHR: Ultrasound Adjusted Datetime: 05/16/2017 22:31 MEDICATIONS Analgesics/Sedatives: Fentanyl (mcg) @
--- NOTE | 2017-05-18 18:26 | DISCHARGE SUMMARY ---
DATE OF ADMISSION: 05/16/2017. DATE OF DISCHARGE: 05/18/2017. DIAGNOSES ON ADMISSION 1. A 21-year-old G2, P1-0-0-1 with a 40 and 0/7th-week intrauterine . 2. Active labor. DIAGNOSES ON DISCHARGE 1. A 21-year-old G2, P2-0-0-2, status post spontaneous vaginal delivery on 05/2017. 2. Normal recovery. BRIEF HISTORY: This is a patient at [facility] who presented on 05/16/2017 with complaints of contractions. She was found to be in active labor and was admitted to the hospital. She was given epidural for pain control. The patient spontaneously advanced to completely dilated, effaced and + 2 station. She spontaneously delivered a viable male named Pepe. Apgars were 9 and 9 at 1 and 5 minutes respectively. Estimated blood loss was 250 mL. She sustained a second-degree midline laceration, which was repaired with 3-0 Vicryl. There were no complications. The patient's course was unremarkable. She was ambulating, tolerating her diet. She was urinating without difficulty, and her pain was controlled with oral medications. Baby boy Pepe is latching well. We will discharge the patient to home today. Prescriptions for ibuprofen, Tylenol and Colace have been sent to her pharmacy. A handwritten prescription for Vicodin is available to her. The patient will see us at [facility] in 6 weeks. We will discuss control. The patient is to call should she have any worsening fevers, chills, abdominal pain or vaginal bleeding. TD: 05/18/2017 18:25 LOGAN
== END 2017-05-18 15:05 | disposition home or self-care (01) | DRG 775 ==
LOC: WFO 19:55 → FBP 20:02 → WFO 22:19 → FBP 22:20
PROVIDERS: ADMIT Obstetrics & Gynecology; ATTEND Obstetrics & Gynecology
PROC: 10E0XZZ Delivery of Products of Conception, External Approach (ICD-10-PCS; principal; 2017-05-17)
PROC: 0KQM0ZZ Repair Perineum Muscle, Open Approach (ICD-10-PCS; 2017-05-17)
DX: O34.13 Maternal care for benign tumor of corpus uteri, third trimester (principal); O70.1 Second degree perineal laceration during delivery; D25.9 Leiomyoma of uterus, unspecified; O99.52 Diseases of the respiratory system complicating childbirth; J45.20 Mild intermittent asthma, uncomplicated; Z37.0 Single live birth; Z3A.40 40 weeks gestation of pregnancy; Z87.442 Personal history of urinary calculi
CPT/HCPCS: 82947; 85025; 99213

== ENCOUNTER 2017-06-05 12:50 | Emergency (ER) | payer MEDICAID ==
[2017-06-05 15:06] LABS: BILIRUBIN,URINE NEGATIVE (NEGATIVE); GLUCOSE, URINE (UA) NEGATIVE (NEGATIVE); KETONES,URINE (UA) NEGATIVE (NEGATIVE); LEUKOCYTE ESTERASE, URINE MODERATE (NEGATIVE); NITRITE,URINE NEGATIVE (NEGATIVE); OCCULT BLOOD,URINE SMALL (NEGATIVE); PH,URINE 6.5 PH (5.0-7.5); PROTEIN,URINE NEGATIVE (NEGATIVE); UROBILINOGEN,URINE 0.2 (NORMAL) E.U./dL (NORMAL)
[2017-06-05 15:09] VITALS: BP 110/71
[2017-06-05 15:09] LABS: CLARITY,URINE CLEAR (CLEAR); HCG UR QUAL NEGATIVE
[2017-06-05 15:21] LABS: WBC CLUMPS,URINE PRESENT
[2017-06-05 15:22] LABS: BACTERIA,URINE Rare /HPF (None Seen); EPITHELIAL CELLS,UR FEW Transitional /HPF (<= Few); MUCUS,URINE Few Strands; RBC,URINE 0-5 /HPF (0-5); SQUAMOUS EPITHELIAL CELL,UR MOD Squamous (<= Few)
[2017-06-05] MEDS ORDERED: cephALEXin 250 MG CAPSULE PO STA (15:49)
--- NOTE | 2017-06-05 15:51 | ED Physician Documentation ---
History of Present Illness - Stated complaint Stated Complaint: BACK PX/NAUSEA - Chief complaint Chief Complaint: Abd Pain - Additonal information Additional information: hx from pt 21 female to ER with L flank pain no fever chills dysuria 2 wk s/p s complication - bleeding has slowed, no foul smelling dc etc Review of Systems Constitutional: denies: Fever, Chills Throat: denies: Sore throat Cardiac: denies: Chest pain / pressure Respiratory: denies: Dyspnea GI: denies: Abdominal Pain, Nausea, Vomiting : denies: Now EGA (PP) Musculoskeletal: reports: Back pain (L kidney) Neurologic: denies: Generalized weakness, Focal weakness, Numbness Endocrine: denies: Easy bruising / bleeding Immunocompromised: denies: Immunocompromised PD PAST MEDICAL HISTORY - Past Medical History Past Medical History: Yes Cardiovascular: None Respiratory: Asthma Neuro: None Endocrine/Autoimmune: None GI: None 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 : Kidney 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 HEENT: None Psych: None Musculoskeletal: None Derm: None - Past Surgical History Past Surgical History: Yes - Present Medications Home Medications: Ambulatory Orders Medication Instructions Recorded Confirmed Cephalexin [Keflex] 500 mg PO Q6H #40 capsule 06/05/17 - Allergies Allergies/Adverse Reactions: Allergies Allergy/AdvReac Type Severity Reaction Status Date / Time No Known Drug Allergies Allergy Verified 06/05/17 13:13 - Social History Does the pt smoke?: Yes Smoking Status: Current every day smoker Does the pt drink ETOH?: No Does the pt have substance abuse?: No - Immunizations Immunizations are current?: Yes - POLST Patient has POLST: No PD ED PE NORMAL - Vitals Vital signs reviewed: Yes - Neck Neck: Supple, no meningeal sign - Cardiac Cardiac: RRR - Respiratory Respiratory: No respiratory distress, Clear bilaterally - Abdomen Abdomen: Soft, Non tender - Back Back: No CVA TTP (L CVA TTP) - Derm Derm: Normal color - Neuro Neuro: Alert and oriented X 3 Results - Vitals Vitals: Vital Signs - 24 hr 06/05/17 06/05/17 13:11 15:07 Temperature 36.4 C L Heart Rate 65 66 Respiratory 16 18 Rate Blood Pressure 113/77 110/71 O2 Saturation 98 98 Oxygen O2 Source Room air - Labs Labs: Laboratory Tests 06/05/17 14:58 Urine Color YELLOW Urine Clarity CLEAR Urine pH 6.5 Ur Specific [place] 1.010 Urine Protein NEGATIVE Urine Glucose (UA) NEGATIVE Urine Ketones NEGATIVE Urine Occult Blood SMALL H Urine Nitrite NEGATIVE Urine Bilirubin NEGATIVE Urine Urobilinogen 0.2 (NORMAL) Ur Leukocyte Esterase MODERATE H Urine RBC 0-5 Urine WBC >25 H Urine WBC Clumps PRESENT Ur Epithelial Cells FEW Transitional Ur Squamous Epith Cells MOD Squamous H Urine Bacteria Rare Urine Mucus Few Strands Ur Microscopic Review INDICATED Urine Culture Comments NOT INDICATED Urine HCG, Qual NEGATIVE PD MEDICAL DECISION MAKING - ED course ED course: post not breast feeding no uterine TTP on exam and states bleeding has slowed no blood in urine to suggest possible stones epidural site s redness swelling TTP, all TTP is L flank seems to have pyelo will, rx ab Departure - Departure Disposition: 01 Home, Self Care Clinical Impression: Pyelonephritis Condition: Good Instructions: Pyelonephritis Dc Prescriptions: Cephalexin [Keflex] 500 mg PO Q6H #28 capsule Cephalexin [Keflex] 500 mg PO Q6H #40 capsule Comments: A urine culture will be run and if you need to be changed to another antibiotic the ER staff will call you Rest and drink plenty of fluids Motrin and tylenol as needed for the pain Return if worse
== END 2017-06-05 16:11 | disposition home or self-care (01) ==
LOC: ED 12:50
DX: N12 Tubulo-interstitial nephritis, not specified as acute or chronic (principal); F17.200 Nicotine dependence, unspecified, uncomplicated
CPT/HCPCS: 81001; 81025; 99283; A9270; 81003; 87086

== ENCOUNTER 2017-07-14 22:53 | Emergency (ER) | payer MEDICAID ==
[2017-07-14 23:15] LABS: BILIRUBIN,URINE NEGATIVE (NEGATIVE); GLUCOSE, URINE (UA) NEGATIVE (NEGATIVE); KETONES,URINE (UA) NEGATIVE (NEGATIVE); LEUKOCYTE ESTERASE, URINE TRACE (NEGATIVE); NITRITE,URINE NEGATIVE (NEGATIVE); OCCULT BLOOD,URINE SMALL (NEGATIVE); PROTEIN,URINE NEGATIVE (NEGATIVE); UROBILINOGEN,URINE 0.2 (NORMAL) E.U./dL (NORMAL)
[2017-07-14 23:32] LABS: CLARITY,URINE CLEAR (CLEAR)
[2017-07-14 23:33] LABS: BACTERIA,URINE None Seen /HPF (None Seen); HCG UR QUAL NEGATIVE; MUCUS,URINE Marked Strands; SQUAMOUS EPITHELIAL CELL,UR MOD Squamous (<= Few)
[2017-07-15] MEDS ORDERED: KETOROLAC 60 MG/2 ML VIAL IM STA (01:21)
--- NOTE | 2017-07-15 01:23 | ED Physician Documentation ---
PD HPI ABD PAIN - Stated complaint Stated Complaint: NAUSEA/BACK PX - Chief complaint Chief Complaint: Back Pain - History obtained from History obtained from: Patient - History of Present Illness Timing - details: Abrupt onset Quality: Pain Location: Other (left flank) Radiation: Other (left groin) Associated symptoms: Nausea. No: Vomiting Similar symptoms before: Diagnosis (History of similar symptoms in the past with kidney stones.) - Additional information Additional information: The patient is a 21-year-old female presents with left flank pain that started about 4 hours prior to arrival. Onset was abrupt, and she reports associated nausea. She denies vomiting, fever, or dysuria. Her pain is similar to when she has had kidney stones in the past. She underwent surgical removal of kidney stone in 2013. Review of Systems Constitutional: denies: Fever Nose: denies: Congestion Cardiac: denies: Chest pain / pressure Respiratory: denies: Dyspnea, Cough GI: reports: Abdominal Pain (Left flank.), Nausea. denies: Vomiting, Diarrhea : reports: LMP (LMP was more than one year ago. The patient became 11 months ago and delivered her son 2 months ago.). 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 : Kidney stones HEENT: None Psych: None Musculoskeletal: None Derm: None - Past Surgical History Past Surgical History: Yes - Present Medications Home Medications: Ambulatory Orders Medication Instructions Recorded Confirmed Cephalexin [Keflex] 500 mg PO Q6H #40 capsule 06/05/17 Promethazine [Phenergan] 25 - 50 mg PO Q6H PRN #10 tab 07/15/17 oxyCODONE/ACET 5/325 [Percocet 5 1 tab PO Q4-6H PRN #15 tablet 07/15/17 mg/325 mg] - Allergies Allergies/Adverse Reactions: Allergies Allergy/AdvReac Type Severity Reaction Status Date / Time No Known Drug Allergies Allergy Verified 07/14/17 23:03 - Social History Does the pt smoke?: Yes Smoking Status: Current every day smoker Does the pt drink ETOH?: No Does the pt have substance abuse?: No - Immunizations Immunizations are current?: Yes - POLST Patient has POLST: No PD ED PE NORMAL - Vitals Vital signs reviewed: Yes (initially hypertensive.) - General General: Alert and oriented X 3, Other (Obese.) - HEENT HEENT: Atraumatic - Cardiac Cardiac: RRR - Respiratory Respiratory: No respiratory distress, Clear bilaterally - Abdomen Abdomen: Normal bowel sounds, Soft, Non tender - Back Back: No spinal TTP, Other (Left flank tenderness to percussion.) - Derm Derm: No rash - Extremities Extremities: No edema, No calf tenderness / cord - Neuro Neuro: Alert and oriented X 3, No motor deficit, Normal speech Results - Vitals Vitals: Vital Signs - 24 hr 07/14/17 07/15/17 07/15/17 22:55 01:32 02:36 Temperature 36.6 C Heart Rate 79 78 77 Respiratory 16 18 15 Rate Blood Pressure 136/113 H 105/65 117/80 O2 Saturation 98 95 95 Oxygen O2 Source Room air - Labs Labs: Laboratory Tests 07/14/17 23:02 Urine Color YELLOW Urine Clarity CLEAR Urine pH 6.0 Ur Specific [place] 1.025 Urine Protein NEGATIVE Urine Glucose (UA) NEGATIVE Urine Ketones NEGATIVE Urine Occult Blood SMALL H Urine Nitrite NEGATIVE Urine Bilirubin NEGATIVE Urine Urobilinogen 0.2 (NORMAL) Ur Leukocyte Esterase TRACE H Urine RBC 6-10 H Urine WBC 4-5 Ur Squamous Epith Cells MOD Squamous H Urine Bacteria None Seen Urine Mucus Marked Strands Ur Microscopic Review INDICATED Urine HCG, Qual NEGATIVE - Rads (name of study) CT abd/pelvis w/o Radiology: Prelim report reviewed, EMP read contemporaneously, See rad report (1 ) There is a nonobstructing 7.2 mm left UVJ region stone. 2) There is a nonobstructing 6.7 mm right mid kidney intraurenal stone. 3) Appendix is normal. No bowel obstruction. No suspicious adnexal abnormality.) PD MEDICAL DECISION MAKING - ED course Complexity details: reviewed results, re-evaluated patient, considered differential, d/w patient, d/w family ED course: The patient's presentation is most consistent with left distal ureteral stone with renal colic. CT scan reveals a 7 mm stone at the left ureterovesical junction. Radiologist notes there is no hydronephrosis. Urinalysis reveals microscopic hematuria, without bacteriuria. Treatment in the emergency department included administration of Toradol 60 mg IM. This relieved the patient's pain. She is being discharged with prescription for Phenergan and for Percocet, 15 tablets. I discussed with her and her female bead stringer the results of the CT scan, symptomatic treatment and outpatient follow-up, as well as potentially worrisome signs or symptoms that should prompt reevaluation in the emergency department. Departure - Departure Disposition: 01 Home, Self Care Clinical Impression: Renal colic, Left ureteral calculus Condition: Stable Instructions: ED Stone Renal W Colic Follow-Up: [facility] [Provider Group] [facility] [Provider Group] Prescriptions: oxyCODONE/ACET 5/325 [Percocet 5 mg/325 mg] 1 tab PO Q4-6H PRN #15 tablet PRN Reason: Pain Promethazine [Phenergan] 25 - 50 mg PO Q6H PRN #10 tab PRN Reason: Nausea / Vomiting Comments: Drink plenty of fluids. You can use Phenergan as prescribed if needed for nausea. You can use ibuprofen, up to 800 mg 3 times daily for its anti-inflammatory effect. You can use Percocet as prescribed if needed for pain. Follow-up with primary physician within 1-2 weeks if possible. Call to schedule appointment. You should call urology clinic as well for follow-up appointment. Return to the emergency department if you develop increasing pain, persistent vomiting, fever, or otherwise worsening symptoms. Discharge Date/Time: 07/15/17 02:36
--- NOTE | 2017-07-15 02:08 | CT Preliminary Report ---
Exam: CT ABDOMEN/PELVIS W/O IMPRESSION: 1. There is a nonobstructing 7.2 mm left UVJ region stone, 812 Hounsfield units in density. 2. There is a nonobstructing 6.7 mm right mid kidney intrarenal stone. 3. Appendix is normal. No bowel obstruction. Note suspicious adnexal abnormality. [facility] SITE ID: [id number]
--- NOTE | 2017-07-15 02:14 | CT Report ---
EXAM: CT ABDOMEN AND PELVIS EXAM DATE: 07/15/2017 01:44 AM. CLINICAL HISTORY: Left flank pain and hematuria; history of stones. COMPARISONS: 07/29/2014. TECHNIQUE: Routine helical CT imaging was performed through the abdomen and pelvis. IV contrast: None . Enteric contrast: No. Reconstructions: Coronal and sagittal. In accordance with CT protocol optimization, one or more of the following dose reduction techniques w ere utilized for this exam: automated exposure control, adjustment of mA and/or KV based on patient s ize, or use of iterative reconstructive technique. FINDINGS: Right Kidney/Ureter: There is a 6.7 mm right mid kidney nonobstructing stone (image 59 series 3). No hydronephrosis or hydroureter. No definite renal mass within the confines of a noncontrast exam. Left Kidney/Ureter: No stones. No hydronephrosis or hydroureter. No definite renal mass within the co nfines of a non-contrast exam. Abdominal Solid Organs: Abdominal parenchymal organs are without significant abnormality within the c onfines of a noncontrast exam. Contracted gallbladder. Bowel: No evidence of bowel obstruction. Appendix: Normal. Lymph Nodes: No definite pathologic lymphadenopathy. Fluid: No significant ascites. Vasculature: Normal caliber aorta. Pelvis: Left UVJ region nonobstructing stone is noted, measuring 7.2 mm, 812 Hounsfield units in dens ity (image 131 series 3). No bladder intraluminal stone. No definite suspicious adnexal lesion. No fr ee fluid or pathologic lymphadenopathy. Bones: No definite suspicious bony lesions demonstrated. Lower Chest: No significant lung base consolidation or effusion. IMPRESSION: 1. There is a nonobstructing 7.2 mm left UVJ region stone, 812 Hounsfield units in density. 2. There is a nonobstructing 6.7 mm right mid kidney intrarenal stone. 3. Appendix is normal. No bowel obstruction. No suspicious adnexal abnormality. [facility] Referring Provider Line: [phone] SITE ID: [id number]
[2017-07-15 02:37] VITALS: BP 117/80
== END 2017-07-15 02:36 | disposition home or self-care (01) ==
LOC: ED 22:53
DX: N20.1 Calculus of ureter (principal); F17.200 Nicotine dependence, unspecified, uncomplicated
CPT/HCPCS: 74176; 81001; 81003; 81025; 96372; 99283; 99284

== ENCOUNTER 2017-10-03 20:30 | Emergency (ER) | payer MEDICAID ==
[2017-10-03] MEDS ORDERED: ONDANSETRON 4 MG/2 ML VIAL IVP STA (20:54)
[2017-10-03] MEDS ORDERED: fentaNYL 100 MCG/2 ML VIAL IVP STA (20:54)
[2017-10-03] MEDS ORDERED: KETOROLAC 60 MG/2 ML VIAL IVP STA (20:54)
--- NOTE | 2017-10-03 20:54 | ED Physician Documentation ---
PD HPI ABD PAIN - Stated complaint Stated Complaint: LOW BACK PX - Chief complaint Chief Complaint: Abd Pain - History obtained from History obtained from: Patient - History of Present Illness Timing - onset: How many hours ago (1), Today Timing - duration: Hours (1) Timing - details: Abrupt onset, Still present Quality: Aching, Sharp, Pain Location: LLQ Radiation: Left flank Improved by: No: Eating, Laying still, Position Worsened by: No: Eating, Moving, Position, Palpation Associated symptoms: Nausea, Vomiting. No: Diarrhea, Constipation, Dysuria, Chest pain Similar symptoms before: Diagnosis (has had kidney stones, but this is more severe than all prior ones.) Recently seen: Not recently seen Review of Systems Constitutional: denies: Fever, Chills, Myalgias Nose: denies: Rhinorrhea / runny nose, Congestion Throat: denies: Sore throat Cardiac: denies: Chest pain / pressure, Palpitations Respiratory: denies: Dyspnea, Cough GI: reports: Abdominal Pain, Nausea, Vomiting. 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 : Kidney stones HEENT: None Psych: None Musculoskeletal: None Derm: None - Past Surgical History Past Surgical History: Yes - Present Medications Home Medications: Ambulatory Orders Medication Instructions Recorded Confirmed Cephalexin [Keflex] 500 mg PO Q6H #40 capsule 06/05/17 Promethazine [Phenergan] 25 - 50 mg PO Q6H PRN #10 tab 07/15/17 oxyCODONE/ACET 5/325 [Percocet 5 1 tab PO Q4-6H PRN #15 tablet 07/15/17 mg/325 mg] Dexamethasone [Decadron] 4 mg PO DAILY #5 tablet 10/03/17 Ondansetron Odt [Zofran] 4 mg TL Q6H PRN #15 tablet 10/03/17 Oxycodone HCl/Acetaminophen 1 each PO Q6H PRN #20 tablet 10/03/17 [Percocet 7.5-325 mg Tablet] Tamsulosin [Flomax] 0.4 mg PO DAILY #5 capsule 10/03/17 - Allergies Allergies/Adverse Reactions: Allergies Allergy/AdvReac Type Severity Reaction Status Date / Time No Known Drug Allergies Allergy Verified 10/03/17 20:36 - Social History Does the pt smoke?: Yes Smoking Status: Current every day smoker Does the pt drink ETOH?: No Does the pt have substance abuse?: No - Family History Family history: reports: Non contributory - Immunizations Immunizations are current?: Yes - POLST Patient has POLST: No PD ED PE NORMAL - Vitals Vital signs reviewed: Yes - General General: Alert and oriented X 3, Well developed/nourished, Other (in severe pain ; writhing side to side without comfort. ) - Neck Neck: Supple, no meningeal sign, No adenopathy - Cardiac Cardiac: RRR, No murmur - Respiratory Respiratory: Clear bilaterally - Abdomen Abdomen: Normal bowel sounds, Soft, Non distended, No organomegaly, Other ( tender left abdomen and left lower without percussion tenderness. ) - Female Female : Deferred - Rectal Rectal: Deferred - Back Back: No spinal TTP, Other (moderate to severe left CVA tenderness to percussion. ) - Derm Derm: Normal color, No rash Results - Vitals Vitals: Oxygen O2 Source Room air - Labs Labs: Laboratory Tests 10/03/17 10/03/17 10/03/17 20:51 20:51 20:51 WBC 16.7 H RBC 4.75 Hgb 13.2 Hct 40.9 MCV 86.1 MCH 27.8 MCHC 32.3 RDW 15.1 H Plt Count 371 MPV 7.8 L Neut # (Auto) 8.3 H Lymph # (Auto) 6.6 H [place] # (Auto) 1.0 Eos # (Auto) 0.7 Baso # (Auto) 0.1 Absolute Nucleated RBC 0.00 Nucleated RBC % 0.0 Sodium 140 Potassium 3.6 Chloride 107 Carbon Dioxide 22 Anion Gap 11.0 BUN 13 Creatinine 0.8 Estimated GFR (MDRD) 89 Glucose 108 H Calcium 10.1 Total Bilirubin 0.3 AST 27 ALT 31 Alkaline Phosphatase 89 Total Protein 8.2 Albumin 4.5 Globulin 3.7 Albumin/Globulin Ratio 1.2 Lipase 20 L Urine Color YELLOW Urine Clarity CLEAR Urine pH 6.0 Ur Specific [place] >=1.030 H Urine Protein TRACE Urine Glucose (UA) NEGATIVE Urine Ketones NEGATIVE Urine Occult Blood SMALL H Urine Nitrite NEGATIVE Urine Bilirubin NEGATIVE Urine Urobilinogen 0.2 (NORMAL) Ur Leukocyte Esterase TRACE H Urine RBC 6-10 H Urine WBC 6-10 H Ur Squamous Epith Cells MOD Squamous H Urine Bacteria Few Urine Mucus Moderate Strands Ur Microscopic Review INDICATED Urine Culture Comments NOT INDICATED Urine HCG, Qual 10/03/17 20:51 WBC RBC Hgb Hct MCV MCH MCHC RDW Plt Count MPV Neut # (Auto) Lymph # (Auto) [place] # (Auto) Eos # (Auto) Baso # (Auto) Absolute Nucleated RBC Nucleated RBC % Sodium Potassium Chloride Carbon Dioxide Anion Gap BUN Creatinine Estimated GFR (MDRD) Glucose Calcium Total Bilirubin AST ALT Alkaline Phosphatase Total Protein Albumin Globulin Albumin/Globulin Ratio Lipase Urine Color Urine Clarity Urine pH Ur Specific [place] >1.030 Urine Protein Urine Glucose (UA) Urine Ketones Urine Occult Blood Urine Nitrite Urine Bilirubin Urine Urobilinogen Ur Leukocyte Esterase Urine RBC Urine WBC Ur Squamous Epith Cells Urine Bacteria Urine Mucus Ur Microscopic Review Urine Culture Comments Urine HCG, Qual NEGATIVE - Rads (name of study) kub CT Radiology: Prelim report reviewed, EMP read contemporaneously (6-7 mm stone at distal left ureter/UVJ. Moderate hydroureter. ) PD MEDICAL DECISION MAKING - ED course Complexity details: reviewed results (6-7 mm stone distal ureter on left. Pain improved. Will give it some time to try to pass. ), re-evaluated patient (pain much improved with IV meds, moderately so with toradol and fentanyl, and then more so with lidocaine. Pain returning after CT and given some more pain meds.) , considered differential, d/w patient - Sepsis Event Vital Signs: Oxygen O2 Source Room air Departure - Departure Disposition: 01 Home, Self Care Clinical Impression: Left flank pain, Ureterolithiasis Condition: Stable Record reviewed to determine appropriate education?: Yes Instructions: ED Stone Renal W Colic Follow-Up: [facility] [Provider Group] Samanta Escoto MD [Physician No Access] - Prescriptions: Dexamethasone [Decadron] 4 mg PO DAILY #5 tablet Ondansetron Odt [Zofran] 4 mg TL Q6H PRN #15 tablet PRN Reason: Nausea / Vomiting Oxycodone HCl/Acetaminophen [Percocet 7.5-325 mg Tablet] 1 each PO Q6H PRN #20 tablet PRN Reason: Pain Tamsulosin [Flomax] 0.4 mg PO DAILY #5 capsule Comments: Drink lots of fluids. Use some basic anti-inflammatories such as naproxen or ibuprofen twice daily for the next few days. Also steroid anti-inflammatory Decadron to reduce inflammation of the ureter. Tamsulosin tries to reduce spasming of the ureter so the stone passes more easily. Add ondansetron if needed for nausea and Percocet if needed for pain. Follow-up with urology if not improved over the next couple of days, call for an appointment. Return to the ER sooner if severe symptoms again despite the medications. Discharge Date/Time: 10/03/17 23:05
[2017-10-03] MEDS ORDERED: LIDOCAINE-MPF 2% 9 ML in SODIUM CHLORIDE 0.9% 50 ML IV STA (20:57)
[2017-10-03 21:04] LABS: BASOPHILS # (AUTO) 0.1 10^3/uL (0.0-0.1); BASOPHILS % (AUTO) 0.6 %; EOSINOPHILS # (AUTO) 0.7 10^3/uL (0.0-0.7); EOSINOPHILS % (AUTO) 3.9 %; HGB - HEMOGLOBIN 13.2 g/dL (12.0-16.0); LYMPHOCYTES # (AUTO) 6.6 10^3/uL (1.5-3.5); LYMPHOCYTES % (AUTO) 39.7 %; MEAN CORPUSCULAR HEMOGLOBIN 27.8 pg (27.0-31.0); MEAN CORPUSCULAR HGB CONC 32.3 g/dL (32.0-36.0); MEAN CORPUSCULAR VOLUME 86.1 fL (81.0-99.0); MEAN PLATELET VOLUME 7.8 fL (7.9-10.8); MONOCYTES % (AUTO) 6.2 %; NEUTROPHILS # (AUTO) 8.3 10^3/uL (1.5-6.6); NEUTROPHILS % (AUTO) 49.6 %; PLT - PLATELET COUNT 371 10^3/uL (130-450); RED BLOOD COUNT 4.75 10^6/uL (4.20-5.40); RED CELL DISTRIBUTION WIDTH 15.1 % (12.0-15.0); WHITE BLOOD COUNT 16.7 x10^3/uL (4.8-10.8)
[2017-10-03 21:14] LABS: ALBUMIN 4.5 g/dL (3.2-5.5); ALBUMIN/GLOBULIN RATIO 1.2 (1.0-2.2); BILIRUBIN,TOTAL 0.3 mg/dL (0.2-1.0); CALCIUM 10.1 mg/dL (8.5-10.3); CREATININE 0.8 mg/dL (0.4-1.0); TOTAL PROTEIN 8.2 g/dL (6.7-8.2)
[2017-10-03 21:48] LABS: BILIRUBIN,URINE NEGATIVE (NEGATIVE); GLUCOSE, URINE (UA) NEGATIVE (NEGATIVE); KETONES,URINE (UA) NEGATIVE (NEGATIVE); LEUKOCYTE ESTERASE, URINE TRACE (NEGATIVE); NITRITE,URINE NEGATIVE (NEGATIVE); OCCULT BLOOD,URINE SMALL (NEGATIVE); PROTEIN,URINE TRACE mg/dL (NEGATIVE); UROBILINOGEN,URINE 0.2 (NORMAL) E.U./dL (NORMAL)
[2017-10-03 21:51] LABS: CLARITY,URINE CLEAR (CLEAR)
[2017-10-03 21:52] LABS: HCG UR QUAL NEGATIVE
[2017-10-03 21:56] LABS: BACTERIA,URINE Few /HPF (None Seen); MUCUS,URINE Moderate Strands; SQUAMOUS EPITHELIAL CELL,UR MOD Squamous (<= Few)
[2017-10-03] MEDS ORDERED: TAMSULOSIN 0.4 MG CAPSULE PO STA (22:15)
[2017-10-03] MEDS ORDERED: DEXAMETHASONE 10 MG/ML VIAL IVP STA (22:15)
[2017-10-03] MEDS ORDERED: oxyCODONE/ACET 5/325 Prepack 4 PO STA (22:16)
[2017-10-03] MEDS ORDERED: ONDANSETRON ODT 4 MG Prepack 2 TL PRN (22:16)
[2017-10-03] MEDS ORDERED: HYDROmorphone 2 MG/ML VIAL IVP STA (22:27)
--- NOTE | 2017-10-03 22:35 | CT Report ---
Procedure Date: 10/03/2017 Accession Number: [id number] / [id number] Procedure: CT - KUB CPT Code: FULL RESULT: EXAM: CT ABDOMEN AND PELVIS (CT KUB) EXAM DATE: 10/03/2017 10:03 PM. CLINICAL HISTORY: Left flank pain. COMPARISONS: ABDOMEN/PELVIS W/O 07/15/2017. TECHNIQUE: Routine helical CT imaging was performed through the abdomen and pelvis without intravenous or oral contrast as per clinical request. Lack of intravenous contrast can at times limited scan sensitivity, particularly for the detection of intraparenchymal and vascular pathology. Reconstructions: Coronal and sagittal. In accordance with CT protocol optimization, one or more of the following dose reduction techniques were utilized for this exam: automated exposure control, adjustment of mA and/or KV based on patient size, or use of iterative reconstructive technique. FINDINGS: ABDOMEN: Lung Bases: Incompletely included lower lungs demonstrates patchy mild groundglass in the right lower lobe and reticulonodular opacities. Heart size is within normal limits. No basilar effusions. Liver: Unremarkable. Gallbladder/Bile Ducts: Gallbladder is unremarkable. Visualized biliary tree is normal caliber. Spleen: Unremarkable. Pancreas: Unremarkable. Adrenal Glands: Unremarkable. Kidneys: Moderate left hydroureteronephrosis to the level of an obstructing 7 mm calculus in the distal left ureter adjacent to the UVJ. 5 mm right interpolar renal calculus again seen. No right hydronephrosis. Peritoneum/Mesentery/Bowel: No free fluid, free air, or collection. No intestinal obstruction or inflammation. The appendix is within normal limits. Lymph nodes: No mesenteric, periportal, or retroperitoneal lymphadenopathy. PELVIS: The bladder is unremarkable for the degree of distention. Uterus is present. No pelvic lymphadenopathy. Retroperitoneum: Abdominal aorta is nonaneurysmal. Bones: No suspicious osseous lesions. IMPRESSION: 7 mm left cyst distal ureteric calculus adjacent to the UVJ is stable in position since the prior, but now causes moderate upstream hydroureteronephrosis. [facility]
[2017-10-03 22:53] VITALS: BP 115/73
== END 2017-10-03 23:05 | disposition home or self-care (01) ==
LOC: ED 20:30
DX: N13.2 Hydronephrosis with renal and ureteral calculous obstruction (principal); Z87.442 Personal history of urinary calculi; F17.200 Nicotine dependence, unspecified, uncomplicated
CPT/HCPCS: 36415; 74176; 80053; 81001; 81025; 83690; 85025; 96374; 96375; 99284; A9270; J1170; J7040; 81003; 87086

== ENCOUNTER 2018-03-24 13:30 | Emergency (ER) | payer MEDICAID ==
--- NOTE | 2018-03-24 14:05 | ED Physician Documentation ---
PD HPI ABD PAIN - Stated complaint Stated Complaint: ABD PX - Chief complaint Chief Complaint: Abd Pain - History obtained from History obtained from: Patient, Family - History of Present Illness Timing - onset: Enter time (0230), Last night Timing - duration: Hours Timing - details: Abrupt onset, Still present Quality: Sharp, Pain Location: Periumbilical, Suprapubic Worsened by: Other (nothing) Associated symptoms: Nausea Similar symptoms before: Diagnosis (kidney stone) Recently seen: Not recently seen - Additional information Additional information: 22-year-old female with a history of recurrent kidney stone was well yesterday when she went to bed and at 2:30 in the morning she awoke with severe pelvic cramping. She states this is worse than any muscle cramping that she is ever had and she feels this is different from what she has had previously when she has had kidney stone. She has most of the pain associated with in the periumbilical and suprapubic area and does not seem to radiate to her back. She has had a stone in the left ureterovesicular junction in September of this year. At that time she had a stone also in the right kidney that was nonobstructing. Review of Systems Constitutional: denies: Fever Ears: denies: Ear pain Nose: denies: Congestion Throat: denies: Sore throat Respiratory: denies: Cough GI: reports: Abdominal Pain, Nausea. 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 : Kidney stones HEENT: None Psych: None Musculoskeletal: None Derm: None - Past Surgical History Past Surgical History: Yes - Present Medications Home Medications: Ambulatory Orders Medication Instructions Recorded Confirmed Hydrocodone/Acetaminophen 1 - 2 each PO Q6H PRN #14 tablet 03/24/18 [Hydrocodon-Acetaminophen 5-325] Ondansetron Odt [Zofran] 4 mg TL Q6H PRN #10 tablet 03/24/18 - Allergies Allergies/Adverse Reactions: Allergies Allergy/AdvReac Type Severity Reaction Status Date / Time No Known Drug Allergies Allergy Verified 03/24/18 13:38 - Social History Does the pt smoke?: Yes Smoking Status: Current every day smoker Does the pt drink ETOH?: No Does the pt have substance abuse?: No - Immunizations Immunizations are current?: Yes - POLST Patient has POLST: No PD ED PE NORMAL - Vitals Vital signs reviewed: Yes (normal ) - General General: Alert and oriented X 3, Well developed/nourished, Other (appears to be in pain with flat affect and manager communication tone. 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, No motor deficit, No sensory deficit, Normal speech Eye Opening: Spontaneous Motor: Obeys Commands Verbal: Oriented GCS Score: 15 - Psych Psych: Normal mood Results - Vitals Vitals: Vital Signs - 24 hr 03/24/18 03/24/18 13:33 16:14 Temperature 36.4 C L Heart Rate 85 59 L Respiratory 16 16 Rate Blood Pressure 119/77 121/80 O2 Saturation 97 99 Oxygen O2 Source Room air - Labs Labs: Laboratory Tests 03/24/18 03/24/18 03/24/18 14:21 14:21 14:42 WBC 11.1 H RBC 5.11 Hgb 14.9 Hct 43.7 MCV 85.6 MCH 29.2 MCHC 34.1 RDW 15.0 Plt Count 213 MPV 8.6 Neut # (Auto) 7.5 H Lymph # (Auto) 2.4 [place] # (Auto) 0.7 Eos # (Auto) 0.4 Baso # (Auto) 0.1 Absolute Nucleated RBC 0.00 Nucleated RBC % 0.0 Sodium 136 Potassium 3.9 Chloride 103 Carbon Dioxide 25 Anion Gap 8.0 BUN 14 Creatinine 0.8 Estimated GFR (MDRD) 88 L Glucose 91 Calcium 9.3 Total Bilirubin 0.5 AST 18 ALT 20 Alkaline Phosphatase 75 Total Protein 8.0 Albumin 4.4 Globulin 3.6 Albumin/Globulin Ratio 1.2 Lipase 23 Urine Color YELLOW Urine Clarity CLEAR Urine pH 6.5 Ur Specific [place] 1.020 Urine Protein NEGATIVE Urine Glucose (UA) NEGATIVE Urine Ketones NEGATIVE Urine Occult Blood TRACE-INTA Urine Nitrite NEGATIVE Urine Bilirubin NEGATIVE Urine Urobilinogen 0.2 (NORMAL) Ur Leukocyte Esterase NEGATIVE Ur Microscopic Review NOT INDICATED Urine Culture Comments NOT INDICATED Urine HCG, Qual 03/24/18 14:42 WBC RBC Hgb Hct MCV MCH MCHC RDW Plt Count MPV Neut # (Auto) Lymph # (Auto) [place] # (Auto) Eos # (Auto) Baso # (Auto) Absolute Nucleated RBC Nucleated RBC % Sodium Potassium Chloride Carbon Dioxide Anion Gap BUN Creatinine Estimated GFR (MDRD) Glucose Calcium Total Bilirubin AST ALT Alkaline Phosphatase Total Protein Albumin Globulin Albumin/Globulin Ratio Lipase Urine Color Urine Clarity Urine pH Ur Specific [place] 1.020 Urine Protein Urine Glucose (UA) Urine Ketones Urine Occult Blood Urine Nitrite Urine Bilirubin Urine Urobilinogen Ur Leukocyte Esterase Ur Microscopic Review Urine Culture Comments Urine HCG, Qual NEGATIVE - Rads (name of study) CT ab/pel without Radiology: Prelim report reviewed (Impression: Subtle thickening and vascular engorgement along the transverse colon is nonspecific finding but can seen can be seen with colitis. No hydronephrosis.), EMP read indepedently, See rad report Procedures - Bedside sono Bedside sono by EMP: With use of bedside ultrasound the right kidney is imaged, there is evidence of hydronephrosis and the kidney is sonographically nontender. PD MEDICAL DECISION MAKING - ED course Complexity details: reviewed old records, reviewed results, re-evaluated patient, considered differential, d/w patient, d/w family ED course: 22 y/o female with acute abdominal pain and a single episode of diarrhea has alicia-umbilical tenderness and no right lower quadrant tenderness and no evidence of stone or appendicitis on CT scan. There is evidence of colitis in the area of tenderness. The patient has had a single episode of diarrhea last night at the onset of symptoms and none since. Departure - Departure Disposition: 01 Home, Self Care Clinical Impression: Colitis, Abdominal pain Condition: Stable Instructions: ED Abdominal Pain Unkn Cause Follow-Up: [facility] [Provider Group] Prescriptions: Hydrocodone/Acetaminophen [Hydrocodon-Acetaminophen 5-325] 1 - 2 each PO Q6H PRN #14 tablet PRN Reason: pain Ondansetron Odt [Zofran] 4 mg TL Q6H PRN #10 tablet PRN Reason: Nausea / Vomiting
[2018-03-24] MEDS ORDERED: KETOROLAC 60 MG/2 ML VIAL IVP STA (14:07)
[2018-03-24] MEDS ORDERED: SODIUM CHLORIDE 0.9% 1,000 ML IV ONE (14:07)
[2018-03-24 14:25] LABS: BASOPHILS # (AUTO) 0.1 10^3/uL (0.0-0.1); BASOPHILS % (AUTO) 0.6 %; EOSINOPHILS # (AUTO) 0.4 10^3/uL (0.0-0.7); EOSINOPHILS % (AUTO) 3.9 %; HGB - HEMOGLOBIN 14.9 g/dL (12.0-16.0); LYMPHOCYTES # (AUTO) 2.4 10^3/uL (1.5-3.5); LYMPHOCYTES % (AUTO) 22.1 %; MEAN CORPUSCULAR HEMOGLOBIN 29.2 pg (27.0-31.0); MEAN CORPUSCULAR HGB CONC 34.1 g/dL (32.0-36.0); MEAN CORPUSCULAR VOLUME 85.6 fL (81.0-99.0); MEAN PLATELET VOLUME 8.6 fL (7.9-10.8); MONOCYTES # (AUTO) 0.7 10^3/uL (0.0-1.0); NEUTROPHILS # (AUTO) 7.5 10^3/uL (1.5-6.6); NEUTROPHILS % (AUTO) 67.4 %; PLT - PLATELET COUNT 213 10^3/uL (130-450); RED BLOOD COUNT 5.11 10^6/uL (4.20-5.40); WHITE BLOOD COUNT 11.1 x10^3/uL (4.8-10.8)
[2018-03-24 14:39] LABS: ALBUMIN 4.4 g/dL (3.2-5.5); ALBUMIN/GLOBULIN RATIO 1.2 (1.0-2.2); BILIRUBIN,TOTAL 0.5 mg/dL (0.2-1.0); CALCIUM 9.3 mg/dL (8.5-10.3); CREATININE 0.8 mg/dL (0.4-1.0)
[2018-03-24 14:56] LABS: BILIRUBIN,URINE NEGATIVE (NEGATIVE); GLUCOSE, URINE (UA) NEGATIVE (NEGATIVE); KETONES,URINE (UA) NEGATIVE (NEGATIVE); LEUKOCYTE ESTERASE, URINE NEGATIVE (NEGATIVE); NITRITE,URINE NEGATIVE (NEGATIVE); OCCULT BLOOD,URINE TRACE-INTA (NEGATIVE); PH,URINE 6.5 PH (5.0-7.5); PROTEIN,URINE NEGATIVE (NEGATIVE); UROBILINOGEN,URINE 0.2 (NORMAL) E.U./dL (NORMAL)
[2018-03-24 15:00] LABS: CLARITY,URINE CLEAR (CLEAR); HCG UR QUAL NEGATIVE
--- NOTE | 2018-03-24 15:34 | CT Report ---
Reason: R hydro pelvic pain Procedure Date: 03/24/2018 Accession Number: [id number] / [id number] Procedure: CT - Abdomen/Pelvis W/O CPT Code: FULL RESULT: EXAM: CT ABDOMEN AND PELVIS (CT KUB) WITHOUT CONTRAST. EXAM DATE: 03/24/2018 03:13 PM. CLINICAL HISTORY: Right hydro pelvic pain. COMPARISONS: KUB 10/03/2017 10:01 PM. TECHNIQUE: Routine axial helical CT imaging was performed through the abdomen and pelvis without IV contrast. Reconstructions: Coronal and sagittal. In accordance with CT protocol optimization, one or more of the following dose reduction techniques were utilized for this exam: automated exposure control, adjustment of mA and/or KV based on patient size, or use of iterative reconstructive technique. FINDINGS: Lung Bases: Unremarkable. Right Kidney/Ureter: Nonobstructing 5 mm renal calculus. No hydronephrosis, or hydroureter. No perinephric fat stranding. Left Kidney/Ureter: No stones, hydronephrosis, or hydroureter. No perinephric fat stranding. Other Solid Organs: Noncontrast images of the solid organs are grossly unremarkable. Gallbladder/Bile Ducts: Unremarkable. Peritoneal Cavity: No free fluid, free air or leda adenopathy. There is subtle engorgement of the vascular arcade of the transverse colon with segmental wall thickening. Appendix is normal. Pelvic Organs: No bladder stones or wall thickening. Noncontrast images of the visualized pelvic organs are unremarkable. Vasculature: Unremarkable. Other: None. IMPRESSION: Subtle thickening and vascular engorgement along the transverse colon is a nonspecific finding but can be seen with colitis. No hydronephrosis. RADIA
[2018-03-24] MEDS ORDERED: HYDROmorphone 1 MG/ML CARPUJECT IVP STA (15:42)
[2018-03-24] MEDS ORDERED: ONDANSETRON 4 MG/2 ML VIAL IVP STA (15:42)
[2018-03-24 16:35] VITALS: BP 108/74
== END 2018-03-24 16:38 | disposition home or self-care (01) ==
LOC: ED 13:30
DX: K52.9 Noninfective gastroenteritis and colitis, unspecified (principal); R11.0 Nausea; F17.200 Nicotine dependence, unspecified, uncomplicated
CPT/HCPCS: 36415; 74176; 80053; 81003; 81025; 83690; 85025; 96361; 96374; 96375; 99283; J1170; 81001; 87086

== ENCOUNTER 2018-03-31 06:23 | Emergency (ER) | payer BC, MEDICAID ==
[2018-03-31 06:50] LABS: BASOPHILS # (AUTO) 0.1 10^3/uL (0.0-0.1); BASOPHILS % (AUTO) 0.6 %; EOSINOPHILS # (AUTO) 0.4 10^3/uL (0.0-0.7); EOSINOPHILS % (AUTO) 3.9 %; HGB - HEMOGLOBIN 14.1 g/dL (12.0-16.0); LYMPHOCYTES # (AUTO) 2.8 10^3/uL (1.5-3.5); LYMPHOCYTES % (AUTO) 24.7 %; MEAN CORPUSCULAR HEMOGLOBIN 29.6 pg (27.0-31.0); MEAN CORPUSCULAR HGB CONC 34.3 g/dL (32.0-36.0); MEAN CORPUSCULAR VOLUME 86.5 fL (81.0-99.0); MEAN PLATELET VOLUME 8.2 fL (7.9-10.8); MONOCYTES # (AUTO) 0.8 10^3/uL (0.0-1.0); NEUTROPHILS # (AUTO) 7.2 10^3/uL (1.5-6.6); NEUTROPHILS % (AUTO) 63.8 %; PLT - PLATELET COUNT 226 10^3/uL (130-450); RED BLOOD COUNT 4.76 10^6/uL (4.20-5.40); RED CELL DISTRIBUTION WIDTH 14.3 % (12.0-15.0); WHITE BLOOD COUNT 11.2 x10^3/uL (4.8-10.8)
[2018-03-31] MEDS ORDERED: ONDANSETRON 4 MG/2 ML VIAL IVP STA (06:50)
[2018-03-31] MEDS ORDERED: KETOROLAC 60 MG/2 ML VIAL IVP STA (06:50)
[2018-03-31 07:04] LABS: ALBUMIN 4.2 g/dL (3.2-5.5); ALBUMIN/GLOBULIN RATIO 1.2 (1.0-2.2); BILIRUBIN,TOTAL 0.4 mg/dL (0.2-1.0); CALCIUM 9.2 mg/dL (8.5-10.3); CREATININE 0.6 mg/dL (0.4-1.0); TOTAL PROTEIN 7.7 g/dL (6.7-8.2)
[2018-03-31 07:06] LABS: BILIRUBIN,URINE NEGATIVE (NEGATIVE); GLUCOSE, URINE (UA) NEGATIVE (NEGATIVE); KETONES,URINE (UA) NEGATIVE (NEGATIVE); LEUKOCYTE ESTERASE, URINE SMALL (NEGATIVE); NITRITE,URINE NEGATIVE (NEGATIVE); OCCULT BLOOD,URINE SMALL (NEGATIVE); PROTEIN,URINE 30 mg/dL (NEGATIVE); UROBILINOGEN,URINE 0.2 (NORMAL) E.U./dL (NORMAL)
[2018-03-31 07:09] LABS: CLARITY,URINE CLOUDY (CLEAR); HCG UR QUAL NEGATIVE
[2018-03-31 07:13] LABS: BACTERIA,URINE Moderate /HPF (None Seen); RBC,URINE 0-5 /HPF (0-5); SQUAMOUS EPITHELIAL CELL,UR MOD Squamous (<= Few)
[2018-03-31] MEDS ORDERED: DICYCLOMINE 10 MG CAPSULE PO STA (07:26)
[2018-03-31] MEDS ORDERED: SODIUM CHLORIDE 0.9% 1,000 ML IV ONE (07:27)
--- NOTE | 2018-03-31 07:29 | ED Physician Documentation ---
PD HPI ABD PAIN - Stated complaint Stated Complaint: ABD PX - Chief complaint Chief Complaint: Abd Pain - History obtained from History obtained from: Patient - History of Present Illness Timing - onset: Enter time (0500), Today Timing - duration: Hours (2) Timing - details: Abrupt onset Pain level max: 10 Pain level now: 8 Quality: Cramping Location: LLQ Improved by: Other (nothing) Worsened by: Other (nothing) Associated symptoms: Nausea, Vomiting, Diarrhea. No: Fever, Hematemesis, Constipation, Melena, Hematochezia, Dysuria, Hematuria, Chest pain, Dizzy, Loss of appetite, Vaginal bleeding, Vaginal dc Similar symptoms before: Diagnosis, Work up / diagnostics (Was seen in the [facility] march [address] abd scan - possible colitis), Treatment (Was sent home on zofran and hydrocodone with improvement after 2 days.) Recently seen: Emergency Dept - Treatment prior to arrival Treatment prior to arrival: none - Additional information Additional information: 22-year-old female with history of abdominal pain and was seen here last March 24 (Labs and CT scan were done) and discharged on hydrocodone and Zofran. Patient stated she felt better after 2 days and kept herself on a brat diet. Last night she had turkey sandwich with Osorio and cheese. She woke up this morning having abdominal cramping and pain. Review of Systems Ten Systems: 10 systems reviewed and negative Constitutional: denies: Fever, Chills, Weight Loss Nose: denies: Rhinorrhea / runny nose Respiratory: denies: Cough GI: reports: Abdominal Pain, Nausea, Vomiting, Diarrhea. denies: Hematemesis, Bloody / black stool : reports: LMP (February 27, 2018), Other (). 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 : Kidney stones HEENT: None Psych: None Musculoskeletal: None Derm: None - Past Surgical History Past Surgical History: Yes - Present Medications Home Medications: Ambulatory Orders Medication Instructions Recorded Confirmed Hydrocodone/Acetaminophen 1 - 2 each PO Q6H PRN #14 tablet 03/24/18 [Hydrocodon-Acetaminophen 5-325] Dicyclomine [Bentyl] 20 mg PO QID #20 capsule 03/31/18 Hydrocodone/Acetaminophen 1 - 2 each PO Q6H PRN #14 tablet 03/31/18 [Hydrocodon-Acetaminophen 5-325] Levofloxacin [Levaquin] 500 mg PO DAILY 7 Days #7 tablet 03/31/18 Metronidazole [Flagyl] 500 mg PO TID 7 Days #21 tablet 03/31/18 Ondansetron Odt [Zofran] 4 mg TL Q6H PRN #10 tablet 03/31/18 - Allergies Allergies/Adverse Reactions: Allergies Allergy/AdvReac Type Severity Reaction Status Date / Time No Known Drug Allergies Allergy Verified 03/31/18 06:34 - Social History Does the pt smoke?: Yes Smoking Status: Current every day smoker Does the pt drink ETOH?: No Does the pt have substance abuse?: No - Immunizations Immunizations are current?: Yes - POLST Patient has POLST: No PD ED PE NORMAL - Vitals Vital signs reviewed: Yes - General General: Alert and oriented X 3, No acute distress - HEENT HEENT: EOMI, Moist mucous membranes - Neck Neck: Supple, no meningeal sign - Cardiac Cardiac: RRR, No murmur - Respiratory Respiratory: No respiratory distress, Clear bilaterally - Abdomen Abdomen: Normal bowel sounds, Soft, Non distended, Other (mid LLQ abdominal pain to deep palpation. no rebound. no guarding. no rigidity) - Derm Derm: Warm and dry - Extremities Extremities: No deformity - Neuro Neuro: Alert and oriented X 3 - Psych Psych: Normal mood, Normal affect Results - Vitals Vitals: Vital Signs - 24 hr 03/31/18 03/31/18 06:32 08:53 Temperature 36.4 C L 36.4 C L Heart Rate 84 60 Respiratory 18 14 Rate Blood Pressure 133/84 H 105/73 O2 Saturation 98 99 Oxygen O2 Source Room air - Labs Labs: Laboratory Tests 03/31/18 03/31/18 03/31/18 06:42 06:42 06:55 WBC 11.2 H RBC 4.76 Hgb 14.1 Hct 41.2 MCV 86.5 MCH 29.6 MCHC 34.3 RDW 14.3 Plt Count 226 MPV 8.2 Neut # (Auto) 7.2 H Lymph # (Auto) 2.8 [place] # (Auto) 0.8 Eos # (Auto) 0.4 Baso # (Auto) 0.1 Absolute Nucleated RBC 0.00 Nucleated RBC % 0.0 Sodium 137 Potassium 3.5 Chloride 108 Carbon Dioxide 19 L Anion Gap 10.0 BUN 10 Creatinine 0.6 Estimated GFR (MDRD) 123 Glucose 103 H Calcium 9.2 Total Bilirubin 0.4 AST 25 ALT 23 Alkaline Phosphatase 77 Total Protein 7.7 Albumin 4.2 Globulin 3.5 Albumin/Globulin Ratio 1.2 Lipase 24 Urine Color YELLOW Urine Clarity CLOUDY Urine pH 6.0 Ur Specific [place] >=1.030 H Urine Protein 30 H Urine Glucose (UA) NEGATIVE Urine Ketones NEGATIVE Urine Occult Blood SMALL H Urine Nitrite NEGATIVE Urine Bilirubin NEGATIVE Urine Urobilinogen 0.2 (NORMAL) Ur Leukocyte Esterase SMALL H Urine RBC 0-5 Urine WBC 6-10 H Ur Squamous Epith Cells MOD Squamous H Urine Bacteria Moderate H Ur Microscopic Review INDICATED Urine Culture Comments NOT INDICATED Urine HCG, Qual NEGATIVE PD MEDICAL DECISION MAKING - ED course Complexity details: reviewed old records, reviewed results, re-evaluated patient, considered differential (colitis, diverticulitis, uti, kidney stone, v iral syndrome, food intolerance, obstruction, ), d/w patient ED course: 0720 Pt states the toradol took the pain away but is coming back.We will try Bentyl.1008Cramping is decreasing with Bentyl patient states but she feels pain and would like pain medication. We will give her hydrocodone now. States she would like to be discharged with a hydrocodone also. We will also discharge her on Levaquin and Flagyl for her colitis. She will follow-up with her primary doctor and get a GI referral. Her diet was discussed: Clear liquids, brat, boiled chicken. She will avoid dairy products. Departure - Departure Disposition: 01 Home, Self Care Clinical Impression: Abdominal pain Qualifiers: Abdominal location: left lower quadrant Qualified Code(s): R10.32 - Left lower quadrant pain Diarrhea Qualifiers: Diarrhea type: unspecified type Qualified Code(s): R19.7 - Diarrhea, unspecified Condition: Stable Instructions: ED Diet Vomiting Diarrhea, ED Gastroenteritis Non Infec Prescriptions: Dicyclomine [Bentyl] 20 mg PO QID #20 capsule Hydrocodone/Acetaminophen [Hydrocodon-Acetaminophen 5-325] 1 - 2 each PO Q6H PRN #14 tablet PRN Reason: pain Levofloxacin [Levaquin] 500 mg PO DAILY 7 Days #7 tablet Metronidazole [Flagyl] 500 mg PO TID 7 Days #21 tablet Ondansetron Odt [Zofran] 4 mg TL Q6H PRN #10 tablet PRN Reason: Nausea / Vomiting Comments: Clear liquids. BRAT diet. Avoid dairy products. Follow-up with your primary doctor and get the referral to a GI doctor. Take the Flagyl and Levaquin as prescribed. Maintain safety while taking hydrocodone. Take the Zofran for nausea. Take the Bentyl for abdominal cramping. If worse return to the emergency room. Discharge Date/Time: 03/31/18 09:45
[2018-03-31 08:54] VITALS: BP 105/73
[2018-03-31] MEDS ORDERED: HYDROcod/ACETAM 5/325 MG TABLET PO STA (09:11)
== END 2018-03-31 09:45 | disposition home or self-care (01) ==
LOC: ED 06:23
DX: K52.9 Noninfective gastroenteritis and colitis, unspecified (principal); F17.200 Nicotine dependence, unspecified, uncomplicated
CPT/HCPCS: 36415; 80053; 81001; 81025; 83690; 85025; 96361; 96374; 99283; A9270; 81003; 87086

== ENCOUNTER 2019-11-02 07:00 | Outpatient (CLI) | payer BC, MEDICAID ==
[2019-11-02 16:18] LABS: BILIRUBIN,URINE NEGATIVE (NEGATIVE); GLUCOSE, URINE (UA) NEGATIVE (NEGATIVE); KETONES,URINE (UA) NEGATIVE (NEGATIVE); LEUKOCYTE ESTERASE, URINE NEGATIVE (NEGATIVE); NITRITE,URINE NEGATIVE (NEGATIVE); OCCULT BLOOD,URINE NEGATIVE (NEGATIVE); PH,URINE 7.5 PH (5.0-7.5); PROTEIN,URINE NEGATIVE (NEGATIVE); UROBILINOGEN,URINE 0.2 (NORMAL) E.U./dL (NORMAL)
[2019-11-02 16:42] LABS: CLARITY,URINE CLEAR (CLEAR)
== END 2019-11-02 23:59 | disposition home or self-care (01) ==
LOC: LAB.R 07:00
PROVIDERS: ATTEND Advanced Practice Midwife
DX: Z34.90 Encounter for supervision of normal pregnancy, unspecified, unspecified trimester (principal); Z36.89 Encounter for other specified antenatal screening
CPT/HCPCS: 81001; 81003; 87086

== ENCOUNTER 2019-11-30 11:51 | Outpatient (CLI) | payer MEDICAID ==
--- NOTE | 2019-11-30 13:22 | Ultrasound Report ---
PROCEDURE: OB First Trimester INDICATIONS: POSITIVE TEST OUTSIDE/PRIOR DATING DATA: Last menstrual period (LMP): 08/31/2019. LMP-based estimated date of delivery (TONJA): 05/27/2020. First dating scan (date and location): 11/30/2019. Estimated date of delivery (TONJA) from first dating scan: 05/30/2020. TECHNIQUE: Real-time scanning was performed of the fetus, with image documentation and biometric measurements. COMPARISON: None. FINDINGS: General: A single living intrauterine gestation is present. Presentation: Paravertebral Placenta: Placental position is posterior, without previa. Amniotic fluid index: 10.4 cm, within normal limits for gestational age. Largest pocket measuring 3 .1 cm. heart rate: 155 beats per minute. Maternal cervical canal: 5.1 cm long; normal length is 2.5 cm or more. biometrics: Biparietal diameter: 2.4 cm 14 weeks 0 days Head circumference: 9.3 cm 40 weeks 1 day Abdominal circumference: 7.7 cm 40 weeks 1 day Femur length: 1.1 cm 30 weeks 3 days Composite gestational age from present scan: 14 weeks 0 days Miscellaneous: Mild bilateral maternal hydronephrosis, unresolved with postvoid images. In addition, right corpus luteal cyst is noted. IMPRESSION: 1. Single live intrauterine with ultrasound gestational age of 14 weeks 0 days correspondin g to TONJA of 05/30/2020. 2. Mild/moderate bilateral hydronephrosis, resolved postvoid. 3. Corpus luteal cyst is noted on the right. 4. Follow-up ultrasound at 20-22 weeks for dates and anatomy. Reviewed by: Marely Montoya MD on 11/30/2019 1:21 PM PDT Approved by: Marely Montoya MD on 11/30/2019 1:21 PM PDT Station ID: [id number]
== END 2019-11-30 11:52 | disposition home or self-care (01) ==
LOC: DI 11:51
PROVIDERS: ATTEND Advanced Practice Midwife
DX: O34.82 Maternal care for other abnormalities of pelvic organs, second trimester (principal); N83.11 Corpus luteum cyst of right ovary; Z3A.14 14 weeks gestation of pregnancy
CPT/HCPCS: 76801

== ENCOUNTER 2019-12-28 08:13 | Outpatient (CLI) | payer MEDICAID ==
--- NOTE | 2019-12-28 17:15 | Ultrasound Report ---
PROCEDURE: OB Detailed Eval INDICATIONS: SUPERVISION OF NORMAL OUTSIDE/PRIOR DATING DATA: Last menstrual period (LMP): 08/21/2019. LMP-based estimated date of delivery (TONJA): 05/27/2020. First dating scan (date and location): 11/30/2019. Estimated date of delivery (TONJA) from first dating scan: 05/30/2020. TECHNIQUE: Real-time scanning was performed of the fetus, with image documentation and biometric measurements. COMPARISON: OB ultrasound 11/30/2019 FINDINGS: General: A single living intrauterine gestation is present. Presentation: Breech Placenta: Placental position is posterior, without previa. Amniotic fluid index: 14.3 cm, within normal limits for gestational age. Largest pocket 3.9 cm. heart rate: 140 beats per minute. Maternal cervical canal: 4.5 cm long; normal length is 2.5 cm or more. biometrics: Biparietal diameter: 4.0 cm 18 weeks 2 days Head circumference: 14.9 cm 18 weeks 0 days Abdominal circumference: 12.9 cm 18 weeks 3 days Femur length: 2.3 cm 17 weeks 0 days Estimated gestational age from initial scan: 18 weeks 0 days Composite gestational age from present scan: 17 weeks 5 days Estimated weight and percentile: 212 g 35th percentile Measurement variability in biometric dating: +/- 10 days from 12-20 weeks gestation, +/- 2 weeks from 20-30 weeks gestation, +/- 3 weeks at 30 weeks gestation or later. Anatomic survey: Neuro: Ventricles are normal at less than 10 mm. Cisterna magna is normal at 3-11 mm. Cerebellum i s normal in size and morphology. Nuchal skin fold: Normal at less than 6 mm between 14 and 20 weeks gestational age. Face: Nose and lips, facial profile are normal. Spine: No evidence for spina bifida. Heart: 4-chambered heart and outflow tracts are suboptimally evaluated. Diaphragm: Diaphragm is intact. Stomach: Left-sided stomach is present. Kidneys: No hydronephrosis. Normal is less than 5 mm in 2nd trimester, less than 7 mm in 3rd trimester. Cord: 3 vessel cord has orthotopic insertion. Bladder: Normal in size. Extremities: All 4 extremities are visualized. Miscellaneous: Right ovary corpus luteal cyst. IMPRESSION: 1. Signal of intrauterine with ultrasound gestational age today of 17 weeks 5 days compared to 18 weeks 0 days from initial exam. 2. Suboptimal visualization of four-chamber heart and outflow tracts. Follow-up ultrasound is recomme nded. Reviewed by: Marely Montoya MD on 12/28/2019 5:14 PM PDT Approved by: Marely Montoya MD on 12/28/2019 5:14 PM PDT Station ID: [id number]
== END 2019-12-28 08:14 | disposition home or self-care (01) ==
LOC: DI 08:13
PROVIDERS: ATTEND Advanced Practice Midwife
DX: Z34.90 Encounter for supervision of normal pregnancy, unspecified, unspecified trimester (principal); Z36.89 Encounter for other specified antenatal screening
CPT/HCPCS: 76811

== ENCOUNTER 2020-01-19 07:02 | Outpatient (CLI) | payer MEDICAID ==
--- NOTE | 2020-01-19 09:39 | Ultrasound Report ---
PROCEDURE: OB F/U or Repeat INDICATIONS: SUPERVISION OF PREG, F/U TO FAS OUTSIDE/PRIOR DATING DATA: Last menstrual period (LMP): 08/21/2019. LMP-based estimated date of delivery (TONJA): 05/27/2020. First dating scan (date and location): 11/30/2019. Estimated date of delivery (TONJA) from first dating scan: 05/30/2020. TECHNIQUE: Real-time scanning was performed of the fetus, with image documentation and biometric measurements. Endovaginal scanning: Not needed. COMPARISON: Prior OB ultrasound 11/30/2019 and follow-up exam 12/28/2019. FINDINGS: General: A single living intrauterine gestation is present. Presentation: Vertex Placenta: Placental position is posterior, without previa. Amniotic fluid index: 16.0 cm, normal for gestational age. heart rate: 147 beats per minute. Maternal cervical canal: 5.1 cm long; normal length is 2.5 cm or more. Other: The current limited OB evaluation is to complete anatomic survey, and allows clear visua lization of a normal four-chamber view of heart, cardiac outflow tracts, and chest and diaphragm area s.. IMPRESSION: Completion of the anatomic survey, with reference to the most recent prior OB ultr asound performed 12/28/2019. No abnormality is found. The delivery date is projected to be centered on 05/30/2020. Reviewed by: Oswaldo To MD on 01/19/2020 9:37 AM PDT Approved by: Oswaldo To MD on 01/19/2020 9:37 AM PDT Station ID: [id number]
== END 2020-01-19 07:03 | disposition home or self-care (01) ==
LOC: DI 07:02
PROVIDERS: ATTEND Advanced Practice Midwife
DX: Z34.90 Encounter for supervision of normal pregnancy, unspecified, unspecified trimester (principal)
CPT/HCPCS: 76816

== ENCOUNTER 2020-03-18 13:28 | Outpatient (CLI) | payer MEDICAID ==
[2020-03-18 17:18] LABS: MEAN CORPUSCULAR HEMOGLOBIN 29.5 pg (27.0-31.0); MEAN CORPUSCULAR HGB CONC 32.1 g/dL (32.0-36.0); MEAN PLATELET VOLUME 9.8 fL (7.9-10.8); RED BLOOD COUNT 3.73 10^6/uL (4.20-5.40); RED CELL DISTRIBUTION WIDTH 13.2 % (12.0-15.0); WHITE BLOOD COUNT 14.9 x10^3/uL (4.8-10.8)
--- NOTE | 2020-03-18 17:31 | Ultrasound Report ---
PROCEDURE: OB F/U or Repeat INDICATIONS: UTERINE SIZE/DATE discrepancy OUTSIDE/PRIOR DATING DATA: Last menstrual period (LMP): 08/21/2019. LMP-based estimated date of delivery (TONJA): 05/27/2020. First dating scan (date and location): 11/30/2019. Estimated date of delivery (TONJA) from first dating scan: 05/30/2020. TECHNIQUE: Real-time scanning was performed of the fetus, with image documentation and biometric measurements. COMPARISON: OB ultrasound 01/19/2020 FINDINGS: General: A single living intrauterine gestation is present. Presentation: Vertex Placenta: Placental position is posterior, without previa. Amniotic fluid index: 24.4 cm, 97th percentile for gestational age. 7.2 cm heart rate: 147 beats per minute. Maternal cervical canal: 4.6 cm long; normal length is 2.5 cm or more. biometrics: Biparietal diameter: 7.5 cm 30 weeks 1 day Head circumference: 27.5 cm 30 weeks 0 days Abdominal circumference: 26 cm 30 weeks 1 day Femur length: 5.7 cm 29 weeks 6 days Estimated gestational age from initial scan: 29 weeks 4 days Composite gestational age from present scan: 30 weeks 0 days Estimated weight and percentile: 1497 g 54th percentile Measurement variability in biometric dating: +/- 10 days from 12-20 weeks gestation, +/- 2 weeks from 20-30 weeks gestation, +/- 3 weeks at 30 weeks gestation or more. Other: Not applicable. IMPRESSION: 1. Single live intrauterine with gestational age from current exam measuring 30 weeks 0 day s compared to 29 weeks 4 days from initial ultrasound exam. 2. Estimated weight at the 54th percentile. Reviewed by: Marely Montoya MD on 03/18/2020 5:30 PM PST Approved by: Marely Montoya MD on 03/18/2020 5:30 PM PST Station ID: [id number]
== END 2020-03-18 13:29 | disposition home or self-care (01) ==
LOC: DI 13:28
PROVIDERS: ATTEND Nurse Practitioner Obstetrics & Gynecology
DX: Z36.0 Encounter for antenatal screening for chromosomal anomalies (principal); O26.843 Uterine size-date discrepancy, third trimester; Z3A.30 30 weeks gestation of pregnancy
CPT/HCPCS: 36415; 82950; 85027

== ENCOUNTER 2020-04-04 09:43 | Inpatient (IN) | payer MEDICAID ==
[2020-04-04] MEDS ORDERED: SODIUM CHLORIDE FLUSH 0.9% 10 ML SYRINGE IVP PRN (10:18)
[2020-04-04 10:59] LABS: BASOPHILS % (AUTO) 0.1 %; EOSINOPHILS % (AUTO) 0.1 %; HCT - HEMATOCRIT 30.9 % (37.0-47.0); HGB - HEMOGLOBIN 10.1 g/dL (12.0-16.0); LYMPHOCYTES # (AUTO) 0.8 10^3/uL (1.5-3.5); LYMPHOCYTES % (AUTO) 4.5 %; MEAN CORPUSCULAR HEMOGLOBIN 29.5 pg (27.0-31.0); MEAN CORPUSCULAR HGB CONC 32.7 g/dL (32.0-36.0); MEAN CORPUSCULAR VOLUME 90.4 fL (81.0-99.0); MEAN PLATELET VOLUME 10.3 fL (7.9-10.8); MONOCYTES # (AUTO) 1.2 10^3/uL (0.0-1.0); MONOCYTES % (AUTO) 7.2 %; NEUTROPHILS # (AUTO) 14.7 10^3/uL (1.5-6.6); NEUTROPHILS % (AUTO) 87.6 %; PLT - PLATELET COUNT 213 10^3/uL (130-450); RED BLOOD COUNT 3.42 10^6/uL (4.20-5.40); RED CELL DISTRIBUTION WIDTH 13.4 % (12.0-15.0); WHITE BLOOD COUNT 16.8 x10^3/uL (4.8-10.8)
[2020-04-04 11:18] LABS: BILIRUBIN,URINE NEGATIVE (NEGATIVE); CLARITY,URINE CLEAR (CLEAR); GLUCOSE, URINE (UA) NEGATIVE (NEGATIVE); KETONES,URINE (UA) 15 mg/dL (NEGATIVE); LEUKOCYTE ESTERASE, URINE TRACE (NEGATIVE); NITRITE,URINE NEGATIVE (NEGATIVE); OCCULT BLOOD,URINE NEGATIVE (NEGATIVE); PH,URINE 7.5 PH (5.0-7.5); PROTEIN,URINE 30 mg/dL (NEGATIVE); UROBILINOGEN,URINE 0.2 (NORMAL) E.U./dL (NORMAL)
[2020-04-04 11:26] LABS: BACTERIA,URINE Moderate /HPF (None Seen); RBC,URINE 0-5 /HPF (0-5); SQUAMOUS EPITHELIAL CELL,UR MOD Squamous (<= Few)
[2020-04-04] MEDS ORDERED: oxyCODONE 5 MG TABLET PO SCH (12:00)
[2020-04-04 12:04] LABS: CORONAVIRUS 229E-RESP PCR NOT DETECTED; CORONAVIRUS HKU1-RESP PCR NOT DETECTED; CORONAVIRUS NL63-RESP PCR NOT DETECTED; CORONAVIRUS OC43-RESP PCR NOT DETECTED; HUMAN METAPNEUMOVIRUS NOT DETECTED; INFLUENZA A- RESP PCR PANEL NOT DETECTED; RHINOVIRUS/ENTEROVIRUS NOT DETECTED; SARS-CoV-2 -RESP PCR PANEL NOT DETECTED
[2020-04-04 12:05] LABS: B. PARAPERTUSSIS- RESP PCR PAN NOT DETECTED; B. PERTUSSIS- RESP PCR PANEL NOT DETECTED; C. PNEUMONIAE- RESP PCR PANEL NOT DETECTED; INFLUENZA B - RESP PCR PANEL NOT DETECTED; M. PNEUMONIAE- RESP PCR PANEL NOT DETECTED; PARAINFLUENZA VIRUS 1 NOT DETECTED; PARAINFLUENZA VIRUS 2 NOT DETECTED; PARAINFLUENZA VIRUS 3 NOT DETECTED; PARAINFLUENZA VIRUS 4 NOT DETECTED; RSV- RESP PCR PANEL NOT DETECTED
[2020-04-04] MEDS ORDERED: ACETAMINOPHEN 500 MG TABLET PO ONE (12:47)
[2020-04-04] MEDS: LACTATED RINGERS 1,000 ML IV SCH ×2 (14:14→20:45)
[2020-04-04] MEDS: cefTRIAXone 2 GM in SODIUM CHLORIDE 0.9% MINIBAG 100 ML IV SCH (14:14)
[2020-04-04] MEDS ORDERED: LACTATED RINGERS 500 ML IV ONE (15:02)
[2020-04-04] MEDS: ACETAMINOPHEN 1,000 MG/100 ML 100 ML IV PRN ×2 (15:46→21:26)
--- NOTE | 2020-04-04 16:34 | HISTORY & PHYSICAL EXAMINATION ---
Admit History - Visit Reason Visit Reason: Other (fever and back pain) - : 3 Parity: 2 Care: positive: [facility] Risk/History: positive: Other Complications This : positive: None Smoking Status: Current every day smoker - Mother's Labs Mother's Blood Type: positive: O Mother's RH: positive: Positive GBS: positive: Other Rubella Status: positive: Immune - Other Maternal History Other Maternal History: Patient is a 24 yo at 32+3 wga who presents with fever and back pain. Patient reports she has had febrile temperatures over the last 2 days.; She has been taking acetaminophen. She also reports severe back pain. She has a hx of nephrolithiasis in prior . No uterine pain. No contractions. No LOF or VB. Endorses FM. Nausea 2/2 pain. Initial U/S: at 14.0 wks c/w LMP for TONJA 05/27/2020 O pos/Rubella immune Gentic testing: desires QUAD-ordered at 14.4wks but not completed FAS: Placenta posterior. JUMA wnl. EFW 35%. 3VC Suboptimal views of heart, follow up indicated- order placed. Glucola 138 TDAP 02/26/2020 Influenza 01/27/2020 GBS & GC/CT at 36 weeks HSV: denies self and partner Breast pump Rx provided MOD: . Spouse: Luis Alfredo. Epidural. Another BOY! Klaus Neri; - struggled with previous 2 children but desires to breastfeed. pp contraception: Plans vasectomy PAP: 11/01/2001- neg Past Medical History: Tobacco use discontinued 09/2019 Asthma Past Surgical History: kidney stone removal 2018 Meds/Allgy - Home Medications Home Medications: Ambulatory Orders Medication Instructions Recorded Confirmed Hydrocodone/Acetaminophen 1 - 2 each PO Q6H PRN #14 tablet 03/24/18 [Hydrocodon-Acetaminophen 5-325] Dicyclomine [Bentyl] 20 mg PO QID #20 capsule 03/31/18 Hydrocodone/Acetaminophen 1 - 2 each PO Q6H PRN #14 tablet 03/31/18 [Hydrocodon-Acetaminophen 5-325] Levofloxacin [Levaquin] 500 mg PO DAILY 7 Days #7 tablet 03/31/18 Ondansetron Odt [Zofran] 4 mg TL Q6H PRN #10 tablet 03/31/18 metroNIDAZOLE [Flagyl] 500 mg PO TID 7 Days #21 tablet 03/31/18 - Allergies Allergies/Adverse Reactions: Allergies Allergy/AdvReac Type Severity Reaction Status Date / Time No Known Drug Allergies Allergy Verified 03/31/18 06:34 Review of Systems - Other Findings Other Findings: As per HPI, otherwise remaining systems are negative. Physical - Abdominal Exam Vital Signs: Temp Pulse Resp BP Pulse Ox 99.7 F 113 H 20 103/56 L 99 04/04/20 14:38 04/04/20 14:38 04/04/20 14:38 04/04/20 14:38 04/04/20 10:18 Contraction Frequency (min/apart): irritable - Monitoring Heart Rate Baseline: 160s mod yoli 15x15 accels no decels Strip Review: positive: Category II - Other Notes Labor Progress Note/Additional Text: GEN: In discomfort HEENT: NCAT CV: tachy, reg rate RESP: CTAB ABD: gravid, S&NT BACK: TTP just below CVA EXT: WWP PSYCH: appropriate affect NEURO: A&O UA with bacteruria. No hematuria Plan for Labor - Plan For Labor Plan for Labor: 24 yo at 32+3 wga here with fever and back pain Maternal and tachycardia Positive for CVA tenderness No hematuria Admit for presumed pyelonephritis -IVF in moderation -Ceftriaxone 2g IV until afebrile for 24-48 hours -Urine culture pending -Ofirmev and oxycodone for pain management Fluid bolus and acetaminophen reduced maternal and heart rates to normal range Cat I tracing once tachycardia resolved -NST Q shift Uterine irritability: Pt denies CTX -FFN negative -Attributed to urinary tract inflammation Anemia: IV iron once pain and febrile temps resolve In patient care
[2020-04-04] MEDS: oxyCODONE 5 MG TABLET PO PRN (20:29)
[2020-04-04 20:44] LABS: BACTERIAL VAGINOSIS DNA NEGATIVE (NEGATIVE); CANDIDA GLABRATA DNA NEGATIVE (NEGATIVE); CANDIDA GROUP DNA POSITIVE (NEGATIVE); CANDIDA KRUSEI DNA NEGATIVE (NEGATIVE); TRICHOMONAS VAGINALIS DNA NEGATIVE (NEGATIVE)
[2020-04-04] MEDS ORDERED: oxyCODONE 5 MG TABLET PO ONE (21:13)
[2020-04-04] MEDS: ONDANSETRON 4 MG/2 ML VIAL IVP PRN (21:37)
[2020-04-05] MEDS: oxyCODONE 5 MG TABLET PO PRN ×2 (01:37→09:31)
[2020-04-05] MEDS: ACETAMINOPHEN 1,000 MG/100 ML 100 ML IV PRN ×2 (03:25→12:53)
[2020-04-05] MEDS: ONDANSETRON 4 MG/2 ML VIAL IVP PRN ×2 (03:43→11:31)
[2020-04-05] MEDS: LACTATED RINGERS 1,000 ML IV SCH ×3 (05:13→22:12)
[2020-04-05] MEDS ORDERED: CLOTRIMAZOLE 1% CREAM 15 GM TUBE TOP SCH (09:00)
[2020-04-05] MEDS: cefTRIAXone 2 GM in SODIUM CHLORIDE 0.9% MINIBAG 100 ML IV SCH (09:43)
[2020-04-05] MEDS ORDERED: ALBUTEROL NEB 2.5 MG/3 ML INH PRN (09:51)
--- NOTE | 2020-04-05 13:15 | PROVIDER PROGRESS NOTE ---
Subjective - Prog Note Date Prog Note Date: 04/05/20 Prog Note Time: 09:00 - Subjective Subjective: Patient is a 24 yo at 32+4 wga who presents with fever and back pain admitted for presumed pyelonephritis Last febrile temperature was at 23:08. Pain intermittently managed iwht tylenol and oxycodone. No concerns this am. Pain in back improved. More so if patient lays on left side. No contractions, vaginal bleeding, LOF. + FM . Objective - Vital Signs/Intake & Output Vital Signs: Vital Signs x48h Temp Pulse Pulse Resp BP Pulse Ox 04/05/20 12:50 100.0 F 115 H 17 101/61 99 04/05/20 10:30 110 H 16 04/05/20 09:32 99.1 F 04/05/20 08:16 99.0 F 107 H 16 98/47 L 99 Intake & Output: Intake & Output 04/02/20 04/03/20 04/04/20 04/05/20 23:59 23:59 23:59 23:59 Intake Total 9944.844 1935.333 Balance 9163.635 7389.333 - Objective General Appearance: positive: No acute distress Respiratory: positive: Chest non-tender, No respiratory distress Cardiovascular: positive: Regular rate & rhythm Abdomen: positive: Non-tender, Other (gravid, S&NT/ND) Extremities: positive: Non-tender Neurologic/Psychiatric: positive: Oriented x3 Comments/Other: Cat I tracing - Lab Results Fish Bones: 04/04/20 10:35 Other Labs: Lab Results x24hrs 04/04/20 04/04/20 Range/Units 18:00 18:00 C. glabrata (PCR) NEGATIVE (NEGATIVE) C. krusei (PCR) NEGATIVE (NEGATIVE) Tammy species DNA POSITIVE A (NEGATIVE) T. vaginalis (PCR) NEGATIVE (NEGATIVE) Bact Vaginosis (PCR) NEGATIVE (NEGATIVE) Fibronectin NEGATIVE (NEGATIVE) Assessment/Plan - Problem List (1) Pyelonephritis affecting Impression: Patient has been without febrile since 23:08 Must remain in-patient until afebrile for 24-48 hours Continue ceftriaxone 2g/24 H Cat I tracing In patient care
[2020-04-05 14:05] LABS: BASOPHILS % (AUTO) 0.2 %; EOSINOPHILS % (AUTO) 0.2 %; HCT - HEMATOCRIT 28.3 % (37.0-47.0); HGB - HEMOGLOBIN 9.2 g/dL (12.0-16.0); LYMPHOCYTES # (AUTO) 1.2 10^3/uL (1.5-3.5); LYMPHOCYTES % (AUTO) 6.6 %; MEAN CORPUSCULAR HEMOGLOBIN 29.7 pg (27.0-31.0); MEAN CORPUSCULAR HGB CONC 32.5 g/dL (32.0-36.0); MEAN CORPUSCULAR VOLUME 91.3 fL (81.0-99.0); MEAN PLATELET VOLUME 9.5 fL (7.9-10.8); MONOCYTES # (AUTO) 1.6 10^3/uL (0.0-1.0); MONOCYTES % (AUTO) 8.9 %; NEUTROPHILS # (AUTO) 15.3 10^3/uL (1.5-6.6); NEUTROPHILS % (AUTO) 83.4 %; PLT - PLATELET COUNT 181 10^3/uL (130-450); RED CELL DISTRIBUTION WIDTH 13.6 % (12.0-15.0); WHITE BLOOD COUNT 18.3 x10^3/uL (4.8-10.8)
[2020-04-05 14:10] LABS: SLIDE REVIEW? Indicated
[2020-04-05 14:52] LABS: PLATELET ESTIMATE, MANUAL NORMAL (130-450,000) (NORMAL); PLATELET MORPHOLOGY NORMAL APPEARANCE (NORMAL); RBC MORPHOLOGY (MULTIPLE) NORMAL APPEARANCE (NORMAL)
[2020-04-05 14:53] LABS: DIFFERENTIAL COMMENT MANUAL=AUTO DIFF; WBC MORPHOLOGY (MULTIPLE) NORMAL APPEARANCE (NORMAL)
[2020-04-05] MEDS ORDERED: oxyCODONE 5 MG TABLET PO PRN (16:25)
[2020-04-05] MEDS: METOCLOPRAMIDE 10 MG TABLET PO PRN ×2 (16:37→22:11)
[2020-04-05] MEDS ORDERED: MICONAZOLE 200 MG VAGINAL SUPP VG SCH (18:00)
[2020-04-05] MEDS: ACETAMINOPHEN 500 MG TABLET PO PRN (20:45)
[2020-04-05 21:04] LABS: CHLAMYDIA TRACHOMATIS DNA NEGATIVE (NEGATIVE); NEISSERIA GONORRHOEAE DNA NEGATIVE (NEGATIVE); TRICHOMONAS VAGINALIS DNA NEGATIVE (NEGATIVE)
[2020-04-06] MEDS: LACTATED RINGERS 1,000 ML IV SCH (05:58)
[2020-04-06 08:40] LABS: BASOPHILS % (AUTO) 0.2 %; EOSINOPHILS % (AUTO) 0.3 %; HCT - HEMATOCRIT 27.4 % (37.0-47.0); HGB - HEMOGLOBIN 8.9 g/dL (12.0-16.0); LYMPHOCYTES # (AUTO) 1.4 10^3/uL (1.5-3.5); LYMPHOCYTES % (AUTO) 12.6 %; MEAN CORPUSCULAR HEMOGLOBIN 29.8 pg (27.0-31.0); MEAN CORPUSCULAR HGB CONC 32.5 g/dL (32.0-36.0); MEAN CORPUSCULAR VOLUME 91.6 fL (81.0-99.0); MEAN PLATELET VOLUME 9.4 fL (7.9-10.8); MONOCYTES # (AUTO) 1.3 10^3/uL (0.0-1.0); NEUTROPHILS # (AUTO) 8.6 10^3/uL (1.5-6.6); NEUTROPHILS % (AUTO) 75.5 %; PLT - PLATELET COUNT 182 10^3/uL (130-450); RED BLOOD COUNT 2.99 10^6/uL (4.20-5.40); RED CELL DISTRIBUTION WIDTH 13.6 % (12.0-15.0); WHITE BLOOD COUNT 11.4 x10^3/uL (4.8-10.8)
[2020-04-06 08:51] LABS: ALBUMIN 2.7 g/dL (3.2-5.5); ALBUMIN/GLOBULIN RATIO 0.7 (1.0-2.2); BILIRUBIN,TOTAL 0.4 mg/dL (0.2-1.0); CALCIUM 8.4 mg/dL (8.5-10.3); CREATININE 0.4 mg/dL (0.4-1.0); POTASSIUM 3.2 mmol/L (3.5-5.0); TOTAL PROTEIN 6.4 g/dL (6.7-8.2)
[2020-04-06] MEDS: METOCLOPRAMIDE 10 MG TABLET PO PRN (09:11)
[2020-04-06] MEDS: cefTRIAXone 2 GM in SODIUM CHLORIDE 0.9% MINIBAG 100 ML IV SCH (09:11)
[2020-04-06] MEDS: ACETAMINOPHEN 500 MG TABLET PO PRN (09:12)
[2020-04-06] MEDS ORDERED: POTASSIUM CHLORIDE 20 MEQ TABLET PO SCH (13:09)
[2020-04-06] MEDS ORDERED: FERRIC GLUCONATE 125 MG in SODIUM CHLORIDE 0.9% 100ML 100 ML IV ONE (14:30)
--- NOTE | 2020-04-06 17:43 | PROVIDER PROGRESS NOTE ---
Subjective - Prog Note Date Prog Note Date: 04/06/20 Prog Note Time: 13:00 - Subjective Subjective: Patient had been afebrile for about 23 hours. No pain in back and no headache. Low potassium levels and anemic on am labs. RR NST Objective - Vital Signs/Intake & Output Reviewed Vital Signs: Yes Intake & Output: Intake & Output 04/03/20 04/04/20 04/05/20 04/06/20 23:59 23:59 23:59 23:59 Intake Total 2189.202 3721.333 1620.833 Balance 4849.418 2754.333 1620.833 - Objective General Appearance: positive: No acute distress Respiratory: positive: No respiratory distress Cardiovascular: positive: Other (RR) Abdomen: positive: Non-tender (gravid, soft and non-tender) Back: positive: Nml inspection, Other (No CVA tenderness) Extremities: positive: Non-tender, No pedal edema Neurologic/Psychiatric: positive: Oriented x3 - Lab Results Fish Bones: 04/06/20 08:29 04/06/20 08:29 Other Labs: Lab Results x24hrs 04/06/20 04/06/20 04/04/20 Range/Units 08:29 08:29 21:40 WBC 11.4 H (4.8-10.8) x10^3/uL RBC 2.99 L (4.20-5.40) 10^6/uL Hgb 8.9 L (12.0-16.0) g/dL Hct 27.4 L (37.0-47.0) % MCV 91.6 (81.0-99.0) fL MCH 29.8 (27.0-31.0) pg MCHC 32.5 (32.0-36.0) g/dL RDW 13.6 (12.0-15.0) % Plt Count 182 (130-450) 10^3/uL MPV 9.4 (7.9-10.8) fL Neut # (Auto) 8.6 H (1.5-6.6) 10^3/uL Lymph # (Auto) 1.4 L (1.5-3.5) 10^3/uL Nolan # (Auto) 1.3 H (0.0-1.0) 10^3/uL Eos # (Auto) 0.0 (0.0-0.7) 10^3/uL Baso # (Auto) 0.0 (0.0-0.1) 10^3/uL Absolute Nucleated RBC 0.00 x10^3/uL Nucleated RBC % 0.0 /100WBC Sodium 137 (135-145) mmol/L Potassium 3.2 L (3.5-5.0) mmol/L Chloride 108 (101-111) mmol/L Carbon Dioxide 21 (21-32) mmol/L Anion Gap 8.0 (6-13) BUN 5 L (6-20) mg/dL Creatinine 0.4 (0.4-1.0) mg/dL Estimated GFR (MDRD) 193 (>89) Glucose 90 (70-100) mg/dL Calcium 8.4 L (8.5-10.3) mg/dL Total Bilirubin 0.4 (0.2-1.0) mg/dL AST 12 (10-42) IU/L ALT 13 (10-60) IU/L Alkaline Phosphatase 103 (42-121) IU/L Total Protein 6.4 L (6.7-8.2) g/dL Albumin 2.7 L (3.2-5.5) g/dL Globulin 3.7 (2.1-4.2) g/dL Albumin/Globulin Ratio 0.7 L (1.0-2.2) Chlam trachomat DNA PCR NEGATIVE (NEGATIVE) N.gonorrhoeae DNA (PCR) NEGATIVE (NEGATIVE) T. vaginalis (PCR) NEGATIVE (NEGATIVE) Assessment/Plan - Problem List (1) Pyelonephritis affecting Impression: Patient appears to have been afebrile overnight with last febrile temp at 15:15 yesterday Can DC home once documented as 24 hours s/p febrile temp Will need to complete 7 days of antibiotics then prophylaxis for remainder of S/p IV iron for anemia Oral KCL for hypokalemia DC once 24 hours s/p febrile temp
--- NOTE | 2020-04-06 17:57 | Discharge Plan ---
Discharge Plan Problem Reviewed?: Yes Disposition: Home, Self Care Prescriptions: cephALEXin [Keflex] 250 mg PO DAILY 120 Days #90 capsule Cephalexin Suspension [Keflex] 250 mg PO QID 5 Days #20 bottle Diet: Regular Activity Restrictions: Activity as Tolerated Shower Restrictions: No Driving Restrictions: No Additional Instructions or Follow Up instructions: Complete full courseof cephalexin 4 times a day for 5 days and then once daily there afters Call for fever >100.5, back pain, pain ro bleeding with urination Start oral iron supplement twice daily Orders for iron and reglan were submitted through [facility] No Smoking: If you smoke, Please STOP! Call for help.
[2020-04-06 18:35] VITALS: BP 110/58
--- NOTE | 2020-04-06 18:56 | Labor Flowsheet ---
Labor Flowsheet Datetime Report Generated by CPN: 04/06/2020 18:56 Datetime: 04/06/2020 05:56 VITAL SIGNS NBP Sys/Mini/Mean (mmHg): 122 : 67 : 79 Pulse: 101 COMMUNICATION LaborFlag: Antepartum Datetime: 04/05/2020 21:29 SpO2 (%): 98 Datetime: 04/05/2020 03:29 Temperature (C): 37.2 Datetime: 04/05/2020 00:00 UTERINE ACTIVITY Monitor Mode: External Frequency (min): x3 Quality: Mild Duration (sec): 50-100 Datetime: 04/04/2020 23:56 PATIENT CARE Patient Position/Activity: Semi-Fowlers Patient Care Comments: getting back in bed. Datetime: 04/04/2020 23:50 I/O Interventions: Up to BR Datetime: 04/04/2020 22:30 Resting Tone (Palpate): Relaxed Datetime: 04/04/2020 22:00 Pattern: Normal: <= 5 Contractions in 10 Minutes Datetime: 04/04/2020 21:30 Contraction Comments: q 4-6 (Annotations: mild, not felt by pt.) ASSESSMENT A Monitor Mode: External US FHR Baseline Rate : 160 Variability: Moderate 6-25 bpm Accelerations: 10X10 Decelerations: None Category: Category I Comments: ok to D/C efm per MD Datetime: 04/04/2020 20:40 FHR Baseline Changes: Tachycardia Datetime: 04/04/2020 16:18 Monitor Interventions for FHR: Ultrasound Adjusted
--- NOTE | 2020-04-26 06:44 | DISCHARGE SUMMARY ---
Discharge Summary Admit Date: 04/04/20 Discharge Date: 04/06/20 Discharging Provider: Opal Code Status: Attempt Resuscitation Condition at Discharge: Good Discharge Disposition: 01 Home, Self Care - DIAGNOSES Admission Diagnoses: IUP at 32+3 wga Pyelonephritis - HPI History of Present Illness: Patient is a 24 yo at 32+3 wga who presented with fever and back pain. Patient reported she has had febrile temperatures over the last 2 days.; She has been taking acetaminophen. She also reports severe back pain. She has a hx of nephrolithiasis in prior . No uterine pain. No contractions. No LOF or VB. Endorses FM. Nausea 2/2 pain. Initial U/S: at 14.0 wks c/w LMP for TONJA 05/27/2020 O pos/Rubella immune Gentic testing: desires QUAD-ordered at 14.4wks but not completed FAS: Placenta posterior. JUMA wnl. EFW 35%. 3VC Suboptimal views of heart, follow up indicated- order placed. Glucola 138 TDAP 02/26/2020 Influenza 01/27/2020 GBS & GC/CT at 36 weeks HSV: denies self and partner Breast pump Rx provided MOD: . Spouse: Luis Alfredo. Epidural. Another BOY! Klaus Neri; - struggled with previous 2 children but desires to breastfeed. pp contraception: Plans vasectomy PAP: 11/01/2001- neg - HOSPITAL COURSE Hospital Course: 24 yo admitted at 32+3 wga here with fever and back pain Physical exam notable for maternal and tachycardia. Also positive for CVA tenderness No hematuria on UA. Elevated white blood cell count and anemic.. She was admitted presumed pyelonephritis -IVF given in moderation -Administred Ceftriaxone 2g IV until afebrile for 24-48 hours -Urine cultures showed urogenital manuela -Ofirmev and oxycodone for pain management Fluid bolus and acetaminophen reduced maternal and heart rates to normal range Cat I tracing once tachycardia resolved. -NST Q shift showed Cat I tracing. Uterine irritability on tocometry at admit. Abdomen was non-tender. Pt denies CTX -FFN negative -Attributed to urinary tract inflammation Anemia: IV iron administered once pain and febrile temps resolve Patient was discharged on 04/06/2020 after remaining afebrile for 24 hours. Leukocytosis had normalized. She was given IV iron and KCl for anemia and hypokalemia. Discharged on one week of oral antibiotics (cephalexin) followed with daily suppression. - ALLERGIES Allergies/Adverse Reactions: Allergies Allergy/AdvReac Type Severity Reaction Status Date / Time No Known Drug Allergies Allergy Verified 03/31/18 06:34 - MEDICATIONS Home Medications: Ambulatory Orders Medication Instructions Recorded Confirmed Hydrocodone/Acetaminophen 1 - 2 each PO Q6H PRN #14 tablet 03/24/18 [Hydrocodon-Acetaminophen 5-325] Dicyclomine [Bentyl] 20 mg PO QID #20 capsule 03/31/18 Hydrocodone/Acetaminophen 1 - 2 each PO Q6H PRN #14 tablet 03/31/18 [Hydrocodon-Acetaminophen 5-325] Levofloxacin [Levaquin] 500 mg PO DAILY 7 Days #7 tablet 03/31/18 Ondansetron Odt [Zofran] 4 mg TL Q6H PRN #10 tablet 03/31/18 metroNIDAZOLE [Flagyl] 500 mg PO TID 7 Days #21 tablet 03/31/18 Cephalexin Suspension [Keflex] 250 mg PO QID 5 Days #20 bottle 04/06/20 cephALEXin [Keflex] 250 mg PO DAILY 120 Days #90 04/06/20 capsule - LABS Result Diagrams: 04/06/20 08:29 04/06/20 08:29 - SEPSIS Current Stage of Sepsis: Resolved Possible source of Sepsis: Genitourinary Sepsis Criteria: Recorded Temperature greater than 38.3C or Less than 36C, Recorded Heart Rate greater than 90 bpm, WBC count greater than 12,000 or less than 4000 - FOLLOW UP Follow Up: IN one week with OB provider - TIME SPENT Time Spent in Discharge (Minutes): 30
== END 2020-04-06 18:55 | disposition home or self-care (01) | DRG 833 ==
LOC: WFO 09:43 → FBP 09:48 → WFO 14:30 → FBP 14:31
PROVIDERS: ADMIT Obstetrics & Gynecology; ATTEND Obstetrics & Gynecology
DX: O23.03 Infections of kidney in pregnancy, third trimester (principal); O99.013 Anemia complicating pregnancy, third trimester; D64.9 Anemia, unspecified; Z3A.32 32 weeks gestation of pregnancy; O99.283 Endocrine, nutritional and metabolic diseases complicating pregnancy, third trimester; E87.6 Hypokalemia; O36.8330 Maternal care for abnormalities of the fetal heart rate or rhythm, third trimester, not applicable or unspecified; O99.333 Smoking (tobacco) complicating pregnancy, third trimester; F17.200 Nicotine dependence, unspecified, uncomplicated; Z87.442 Personal history of urinary calculi; Z79.899 Other long term (current) drug therapy
CPT/HCPCS: 0202U; 36415; 80053; 81001; 82731; 85025; 87086; 87481; 87491; 87591; 87661; 87797; 87801; 94640; 99214; A9270; J0131; J2916; J7120; 81599

== ENCOUNTER 2020-04-19 12:05 | Observation (INO) | payer MEDICAID ==
--- NOTE | 2020-04-19 12:07 | Labor Flowsheet ---
Labor Flowsheet Datetime Report Generated by CPN: 04/19/2020 12:07 Datetime: 04/06/2020 05:56 VITAL SIGNS NBP Sys/Mini/Mean (mmHg): 122 : 67 : 79 Pulse: 101 COMMUNICATION LaborFlag: Antepartum Datetime: 04/05/2020 21:29 SpO2 (%): 98 Datetime: 04/05/2020 03:29 Temperature (C): 37.2 Datetime: 04/05/2020 00:00 UTERINE ACTIVITY Monitor Mode: External Frequency (min): x3 Quality: Mild Duration (sec): 50-100 Datetime: 04/04/2020 23:56 PATIENT CARE Patient Position/Activity: Semi-Fowlers Patient Care Comments: getting back in bed. Datetime: 04/04/2020 23:50 I/O Interventions: Up to BR Datetime: 04/04/2020 22:30 Resting Tone (Palpate): Relaxed Datetime: 04/04/2020 22:00 Pattern: Normal: <= 5 Contractions in 10 Minutes Datetime: 04/04/2020 21:30 Contraction Comments: q 4-6 (Annotations: mild, not felt by pt.) ASSESSMENT A Monitor Mode: External US FHR Baseline Rate : 160 Variability: Moderate 6-25 bpm Accelerations: 10X10 Decelerations: None Category: Category I Comments: ok to D/C efm per MD Datetime: 04/04/2020 20:40 FHR Baseline Changes: Tachycardia Datetime: 04/04/2020 16:18 Monitor Interventions for FHR: Ultrasound Adjusted
[2020-04-19] MEDS ORDERED: SODIUM CHLORIDE FLUSH 0.9% 10 ML SYRINGE IVP PRN (13:03)
[2020-04-19] MEDS ORDERED: AMPICILLIN 2 GM in SODIUM CHLORIDE 0.9% MINIBAG 100 ML IV ONE (13:03)
[2020-04-19] MEDS ORDERED: OXYTOCIN/SODIUM CHLORIDE 500 ML IV PRN (13:03)
[2020-04-19] MEDS ORDERED: CARBOPROST TROMETHAMINE 250 MCG/ML AMP IM PRN (13:03)
[2020-04-19] MEDS ORDERED: TRANEXAMIC ACID 1,000 MG in SODIUM CHLORIDE 0.9% 100ML 100 ML IV PRN (13:03)
[2020-04-19] MEDS ORDERED: OXYTOCIN 10 UNIT/ML VIAL IM PRN (13:03)
[2020-04-19] MEDS ORDERED: ONDANSETRON 4 MG/2 ML VIAL IVP PRN (13:03)
[2020-04-19] MEDS ORDERED: LIDOCAINE-MPF 1% 30 ML VIAL ID PRN (13:03)
[2020-04-19] MEDS ORDERED: miSOPROStoL 200 MCG TABLET BC PRN (13:03)
[2020-04-19] MEDS ORDERED: METHYLERGONOVINE 0.2 MG/ML VIAL IM PRN (13:03)
[2020-04-19] MEDS ORDERED: BETAMETHASONE 30 MG/5 ML VIAL IM ONE (13:11)
[2020-04-19] MEDS ORDERED: LACTATED RINGERS 1,000 ML IV ONE (13:44)
[2020-04-19 13:58] LABS: BILIRUBIN,URINE NEGATIVE (NEGATIVE); GLUCOSE, URINE (UA) NEGATIVE (NEGATIVE); KETONES,URINE (UA) 15 mg/dL (NEGATIVE); LEUKOCYTE ESTERASE, URINE NEGATIVE (NEGATIVE); NITRITE,URINE NEGATIVE (NEGATIVE); OCCULT BLOOD,URINE NEGATIVE (NEGATIVE); PROTEIN,URINE NEGATIVE (NEGATIVE); UROBILINOGEN,URINE 0.2 (NORMAL) E.U./dL (NORMAL)
[2020-04-19] MEDS ORDERED: AMPICILLIN 1 GM in SODIUM CHLORIDE 0.9% MINIBAG 100 ML IV SCH (14:00)
[2020-04-19] MEDS ORDERED: LACTATED RINGERS 1,000 ML IV SCH (14:00)
[2020-04-19 14:08] LABS: CLARITY,URINE CLEAR (CLEAR)
[2020-04-19 14:12] LABS: BASOPHILS % (AUTO) 0.2 %; EOSINOPHILS # (AUTO) 0.1 10^3/uL (0.0-0.7); EOSINOPHILS % (AUTO) 0.6 %; LYMPHOCYTES # (AUTO) 2.4 10^3/uL (1.5-3.5); LYMPHOCYTES % (AUTO) 17.7 %; MEAN CORPUSCULAR HEMOGLOBIN 29.3 pg (27.0-31.0); MEAN CORPUSCULAR HGB CONC 32.5 g/dL (32.0-36.0); MEAN CORPUSCULAR VOLUME 89.9 fL (81.0-99.0); MEAN PLATELET VOLUME 9.9 fL (7.9-10.8); MONOCYTES # (AUTO) 0.8 10^3/uL (0.0-1.0); MONOCYTES % (AUTO) 5.8 %; NEUTROPHILS # (AUTO) 10.3 10^3/uL (1.5-6.6); NEUTROPHILS % (AUTO) 75.2 %; PLT - PLATELET COUNT 274 10^3/uL (130-450); RED BLOOD COUNT 3.76 10^6/uL (4.20-5.40); WHITE BLOOD COUNT 13.7 x10^3/uL (4.8-10.8)
--- NOTE | 2020-04-19 14:22 | HISTORY & PHYSICAL EXAMINATION ---
HPI - Admitted From Admitted from: OB - History of Present Illness HPI Comment/Other: CC: contractions HPI: contractions began at 05:30 this morning, out of the blue, nothing new associated with them. Now q3min and moderate. No LOF. Good FM. No VB. PMH: presumptive pyelonephritis this , hx nephrolithiasis, iron deficiency anemia PSH: nephrolith removal with stent Allergies: NKDA FH: no anesthesia problems SH: no t/e/d Meds: PNV, keflex 250mg daily prophylaxis OB: GBS + TONJA 2/12 bv LMP c/w 14w US s/p Tdap and flu shot Rh+, RI, STI neg, 1h normal, HSV hx denies Anatomy normal, posterior placenta, normal fluid, last EFW in 50%ile O: AVSS Alert, smiling, NAD Abd soft, nt/nd Contractions palpate moderate EFG normal Vagina normal, physiologic discharge SVE 1.5/0%/-2 Category 1 NST Brady 2-3 UC in 10min Vertex by US A/P: 24yo at 34w3d with onset of contractions, feels like real labor to this multip, hx of 7h delivery with her last child. SVE could be c/w normal cervical exam in a multip. 1) observe for any change in SVE. If change then try to transport to NICU facility. 2) GBS + with hx of 7h labor -- will start ampicillin now 3) Late without cervical change -- start BMZ now per MFM recommendation 4) Fetus: reassuring FWB, normal anatomy, genetic screening not completed by pt. 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: None : positive: Kidney stones HEENT: positive: None Psych: positive: None Musculoskeletal: positive: None Derm: positive: None MRSA Hx?: No Social & Family Hx - Social History Does the pt smoke?: Yes Smoking Status: Current every day smoker Does the pt drink ETOH?: No Does the pt have substance abuse?: No - POLST Patient has POLST: No Meds/Allgy - Home Medications Home Medications: Ambulatory Orders Medication Instructions Recorded Confirmed Hydrocodone/Acetaminophen 1 - 2 each PO Q6H PRN #14 tablet 03/24/18 [Hydrocodon-Acetaminophen 5-325] Dicyclomine [Bentyl] 20 mg PO QID #20 capsule 03/31/18 Hydrocodone/Acetaminophen 1 - 2 each PO Q6H PRN #14 tablet 03/31/18 [Hydrocodon-Acetaminophen 5-325] Levofloxacin [Levaquin] 500 mg PO DAILY 7 Days #7 tablet 03/31/18 Ondansetron Odt [Zofran] 4 mg TL Q6H PRN #10 tablet 03/31/18 metroNIDAZOLE [Flagyl] 500 mg PO TID 7 Days #21 tablet 03/31/18 Cephalexin Suspension [Keflex] 250 mg PO QID 5 Days #20 bottle 04/06/20 cephALEXin [Keflex] 250 mg PO DAILY 120 Days #90 04/06/20 capsule - Allergies Allergies/Adverse Reactions: Allergies Allergy/AdvReac Type Severity Reaction Status Date / Time No Known Drug Allergies Allergy Verified 03/31/18 06:34 Exam - Vital Signs Vital Signs: Vital Signs x48h Temp Pulse Resp BP Pulse Ox 04/19/20 12:18 98.2 F 90 18 137/70 H 100 Results - Lab Results Fish Bones: 04/19/20 13:20 Other Lab Results: Lab Results x24hrs 04/19/20 Range/Units 13:10 Urine Color YELLOW Urine Clarity CLEAR (CLEAR) Urine pH 7.0 (5.0-7.5) PH Ur Specific [place] 1.020 (1.002-1.030) Urine Protein NEGATIVE (NEGATIVE) mg/dL Urine Glucose (UA) NEGATIVE (NEGATIVE) mg/dL Urine Ketones 15 H (NEGATIVE) mg/dL Urine Occult Blood NEGATIVE (NEGATIVE) Urine Nitrite NEGATIVE (NEGATIVE) Urine Bilirubin NEGATIVE (NEGATIVE) Urine Urobilinogen 0.2 (NORMAL) (NORMAL) E.U./dL Ur Leukocyte Esterase NEGATIVE (NEGATIVE) Ur Microscopic Review NOT INDICATED Urine Culture Comments NOT INDICATED
--- NOTE | 2020-04-19 15:32 | Discharge Plan ---
Discharge Plan Problem Reviewed?: Yes Disposition: 02 Transfer Acute Care Hosp Condition: Stable No Smoking: If you smoke, Please STOP! Call for help.
[2020-04-19] MEDS ORDERED: NIFEdipine 10 MG CAPSULE PO ONE ×2 (15:37→15:39)
--- NOTE | 2020-04-19 16:26 | DISCHARGE SUMMARY ---
Physician: Samanta Galindo MD DATE OF ADMISSION: 04/19/2020 DATE OF DISCHARGE: 04/19/2020 ADMISSION DIAGNOSES: 1. Intrauterine at 34 weeks and 3 days. 2. contractions. DISCHARGE DIAGNOSES: 1. Intrauterine at 34 weeks and 3 days. 2. labor. PROCEDURES: Continuous monitoring. HOSPITAL COURSE: The patient was admitted with onset of contractions with the intention of o bserving for cervical change and transporting to a NICU capable facility if she was indeed in labor. She did have cervical change from 1.5 cm and long to 2 cm and 50% effaced. At that time, jeremias moya was accepted for transport to [facility]. She received betamethasone 12 mg x1. She receiv ed ampicillin starting at admission due to her history of a 7-hour delivery in the past. A UA was no rmal, and a gonorrhea and chlamydia were collected, but not resulted yet. She was given a dose of ni fedipine for transport. FOLLOWUP: Depending on if she delivers or not at [facility]. Jacinta for followup at [facility]. DISPOSITION: Transport to [facility]. CONDITION: Stable, but in labor. TD: 04/19/2020 16:15
[2020-04-19 16:45] VITALS: BP 132/71
[2020-04-19 16:54] LABS: C. PNEUMONIAE- RESP PCR PANEL NOT DETECTED
[2020-04-19] MEDS ORDERED: SODIUM CHLORIDE FLUSH 0.9% 10 ML SYRINGE IVP SCH (17:00)
[2020-04-19 22:43] LABS: TRICHOMONAS VAGINALIS DNA NEGATIVE (NEGATIVE)
== END 2020-04-19 16:34 | disposition short-term general hospital (02) ==
LOC: WFO 12:05 → FBP 12:07 → WFO 13:02 → INTOOBSV 13:03 → FBP 13:03 → UNDOADMIN 13:03 → FBP 13:05 → UNDODISIN 16:34
PROVIDERS: ADMIT Obstetrics & Gynecology; ATTEND Obstetrics & Gynecology
DX: O60.03 Preterm labor without delivery, third trimester (principal); O99.820 Streptococcus B carrier state complicating pregnancy; O99.513 Diseases of the respiratory system complicating pregnancy, third trimester; J45.909 Unspecified asthma, uncomplicated; O99.333 Smoking (tobacco) complicating pregnancy, third trimester; Z87.442 Personal history of urinary calculi; Z3A.34 34 weeks gestation of pregnancy; Z79.2 Long term (current) use of antibiotics; Z79.891 Long term (current) use of opiate analgesic
CPT/HCPCS: 0202U; 81003; 85025; 86850; 86900; 86901; 87210; 87491; 87591; 87661; 96372; 96374; A9270; G0378; J7120; 81001; 87086

== ENCOUNTER 2020-04-22 10:47 | Outpatient (CLI) | payer MEDICAID ==
[2020-04-22 11:09] VITALS: BP 118/69
[2020-04-22 12:22] LABS: BASOPHILS % (AUTO) 0.3 %; EOSINOPHILS # (AUTO) 0.1 10^3/uL (0.0-0.7); EOSINOPHILS % (AUTO) 0.5 %; HGB - HEMOGLOBIN 11.1 g/dL (12.0-16.0); LYMPHOCYTES # (AUTO) 2.6 10^3/uL (1.5-3.5); LYMPHOCYTES % (AUTO) 19.5 %; MEAN CORPUSCULAR HEMOGLOBIN 29.8 pg (27.0-31.0); MEAN CORPUSCULAR VOLUME 90.1 fL (81.0-99.0); MEAN PLATELET VOLUME 9.5 fL (7.9-10.8); MONOCYTES # (AUTO) 1.2 10^3/uL (0.0-1.0); MONOCYTES % (AUTO) 8.7 %; NEUTROPHILS # (AUTO) 9.3 10^3/uL (1.5-6.6); NEUTROPHILS % (AUTO) 70.2 %; PLT - PLATELET COUNT 230 10^3/uL (130-450); RED BLOOD COUNT 3.73 10^6/uL (4.20-5.40); RED CELL DISTRIBUTION WIDTH 14.2 % (12.0-15.0); WHITE BLOOD COUNT 13.3 x10^3/uL (4.8-10.8)
[2020-04-22 12:30] LABS: CREATININE,URINE 143.6 mg/dL; PROTEIN/CREATININE RATIO,URINE 0.2 (<=0.2)
[2020-04-22 12:34] LABS: ALBUMIN 3.5 g/dL (3.2-5.5); ALBUMIN/GLOBULIN RATIO 0.9 (1.0-2.2); BILIRUBIN,TOTAL 0.4 mg/dL (0.2-1.0); CALCIUM 9.1 mg/dL (8.5-10.3); CREATININE 0.5 mg/dL (0.4-1.0); TOTAL PROTEIN 7.2 g/dL (6.7-8.2)
--- NOTE | 2020-04-22 12:45 | Labor Flowsheet ---
Labor Flowsheet Datetime Report Generated by CPN: 04/22/2020 12:45 Datetime: 04/22/2020 11:08 VITAL SIGNS NBP Sys/Mini/Mean (mmHg): 118 : 69 : 81 Pulse: 94 COMMUNICATION LaborFlag: Antepartum
--- NOTE | 2020-04-22 17:58 | PROCEDURE REPORT ---
- HPI Diagnosis/Indication for NST: Other (Preeclampsia without severe features) Current EDU 05/27/20 Gestation 35 Weeks and 0 Days 3 Para 2 Vital Signs Temperature 98.1 F 04/22/20 11:02 Heart Rate 93 04/22/20 11:02 Respiratory Rate 18 04/22/20 11:02 Blood Pressure 118/69 04/22/20 11:02 O2 Saturation 100 04/22/20 11:02 Temperature 98.1 F 04/22/20 11:02 Heart Rate 93 04/22/20 11:02 Respiratory Rate 18 04/22/20 11:02 Blood Pressure 118/69 04/22/20 11:02 O2 Saturation 100 04/22/20 11:02 - NST Procedure NST Procedure Start Date 04/22/20 Start Time 11:06 Stop Time 12:02 Vibroacoustic Stimulation Used No Patient States Movement No - Results and Plan Findings/Impression: Baseline: 145 BPM Accelerations: present Decelerations: absent Variablity: moderate Changes over time: none [place]: none Impression: Category 1 NST
--- OUTSIDE RECORDS SUMMARY | 2020-04-27 01:35 | EXTERNAL MEDICAL SUMMARY RPT | Continuity of Care Document ---
:1995 Demographics Phone Unavailable Preferred Language Bermudian Marital Status Unknown Sabianist Affiliation Unknown Race Unknown Ethnic Group Unknown Author Organization [place] Address [address] [place] [address] Phone Care Team Providers Name Role Phone Rickey Unavailable Unavailable Registrar Unavailable Unavailable MD Unavailable Unavailable Alanna Unavailable Unavailable Registrar Unavailable Unavailable SPECIALTY PERSON Unavailable Unavailable UNDERWRITING CONSULTANT Unavailable Unavailable MA-C Unavailable Unavailable SPECIALTY PERSON Unavailable Unavailable RN Unavailable Unavailable MD Unavailable Unavailable Referrals Unavailable Unavailable Problems date description facility 2020-02-26 00:00[facility]00 [facility] 2020-02-26 00:00:00 Details of drug misuse behavior [facility] R[facility] 2020-02-26 00:00:00 [facility] size date [facility] antepartum condition or [facility]HC complication 2020-02-26 00:00:00 Vaccination for diphtheria, [facility] pertussis, and tetanus RHC 2020-02-26 00:00:00 [facility] discrepancy [facility] 2020-02-26 00:00:00 Tobacco smoking status NHIS [facility] CPV RHC 2020-02-26 00:00:00 Administration of diphtheria, [facility] CPV pertussis, and tetanus vaccine RHC 2020-02-26 00:00:00 [facility] vaccination and inoculation [facility] against other combinations of diseases 2020-02-26 00:00:00 [facility] 2020-02-26 00:00:00 1HR [facility] 2020-02-26 00:00:00 [facility]date [facility] third [facility] 2020-02-26 00:00:00 [facility] 2020-02-26 00:00:00 Former smoker [facility] 2020-02-26 00:00:00 Total score? [facility] 2020-02-26 00:00:00 [facility] 2020-02-26 00:00:00 [facility] 2020-02-26 00:00:00 CBC w/o DIFF [facility] 2020-02-26 00:00:00 Alcohol use [facility] 2020-03-17 00:00:00 Tobacco smoking status [facility] 2020-03-17 00:00:00 Total score? [facility] 2020-03-17 00:00:00 Alcohol use [facility] 2020-03-17 00:00:00 Details of drug misuse [facility] 2020-03-17 00:00:00 Exercise [facility] 2020-03-17 00:00:00 [facility] 2020-03-17 00:00:00 [facility] 2020-03-17 00:00:00 Tobacco [facility] exposure [facility] 2020-04-04 14:31 ANEMIA, UNSPECIFIED [facility] 2020-04-04 14:31 HYPOKALEMIA [facility] 2020-04-04 14:31 NICOTINE DEPENDENCE, [facility] UNSPECIFIED, UNCOMPLICATED 2020-04-04 14:31 INFECTIONS OF KIDNEY IN [facility] , THIRD TRIMESTER 2020-04-04 14:31 MATERN CARE FOR ABNLT FETL HRT [facility] RATE OR RHYM, 3RD T 2020-04-04 14:31 ANEMIA COMPLICATING , [facility] THIRD TRIMESTER 2020-04-04 14:31 ENDO, NUTRITIONAL AND METAB [facility] DISEASES COMP PREG, TH 2020-04-04 14:31 SMOKING (TOBACCO) COMPLICATING [facility] , THIRD TR 2020-04-04 14:31 32 WEEKS GESTATION OF Merged with [facility] 2020-04-04 14:31 OTHER SNF (CURRENT) DRUG [facility] THERAPY 2020-04-04 14:31 PERSONAL HISTORY OF URINARY [facility] CALCULI 2020-04-12 00:00:[address] Infect[address] disease in mother [facility] CPV complicating , RHC childbirth AND/OR puerperium 2020-04-12 00:00:00 Other specified infectious and [facility] CPV parasitic diseases complicating RHC , childbirth, or the puerperium, antepartum condition or complication 2020-04-12 00:00:00 Streptococcus B [facility] CPV complicating RHC 2020-04-19 17:05 Pre Term Labor [employer] 2020-04-21 00:00:00 US BIOPHYSICAL PROFILE [facility] CPV RHC 2020-04-21 00:00:00 Mild to moderate pre-eclampsia, [facility] CPV third trimester RHC 2020-04-21 00:00:00 Pre-eclampsia [facility] CPV RHC Allergies date description facility ACETAMINOPHEN [facility] PENICILLINS [facility] PRAVASTATIN [facility] [place] ROSUVASTATIN CALCIUM [facility] NO KNOWN ALLERGIES [facility] NO ALLERGY INFORMATION AVAILABLE [facility] PENICILLINS [facility] SULFA (SULFONAMIDE ANTIBIOTICS) [facility] NO KNOWN ALLERGIES [facility] GRASS POLLEN [facility] PRESERVATIVE [facility] MIDAZOLAM [facility] CHOCOLATE FLAVOR [facility] No Known Drug Allergies [facility] hydroxychloroquine [facility] NO KNOWN ENVIRONMENTAL ALLERGIES [facility] No Known Drug Allergies [facility] Medications date description facility 2020-02-26 00:00:00 null [facility] 2020-02-26 00:00:00 null [facility] 2020-02-26 00:00:00 MISC. DEVICES [facility] 2020-02-26 00:00:00 null [facility] 2020-02-26 00:00:00 null [facility] 2020-02-26 00:00:00 null [facility] 2020-02-26 00:00:00 null [facility] 2020-02-26 00:00:00 MISC. DEVICES [facility] 2020-02-26 00:00:00 null [facility] 2020-02-26 00:00:00 null [facility] 2020-02-26 00:00:00 null [facility] 2020-02-26 00:00:00 null [facility] 2020-02-26 00:00:00 MISC. DEVICES [facility] 2020-02-26 00:00:00 null [facility] 2020-02-26 00:00:00 null [facility] 2020-02-26 00:00:00 null [facility] 2020-02-26 00:00:00 null [facility] 2020-02-26 00:00:00 MISC. DEVICES [facility] 2020-02-26 00:00:00 null [facility] 2020-02-26 00:00:00 null [facility] 2020-02-26 00:00:00 null [facility] 2020-02-26 00:00:00 null [facility] 2020-02-26 00:00:00 MISC. DEVICES [facility] 2020-02-26 00:00:00 null [facility] 2020-02-26 00:00:00 null [facility] 2020-02-26 00:00:00 null [facility] 2020-02-26 00:00:00 null [facility] 2020-02-26 00:00:00 MISC. DEVICES [facility] 2020-02-26 00:00:00 null [facility] 2020-02-26 00:00:00 null [facility] 2020-02-26 00:00:00 null [facility] 2020-02-26 00:00:00 null [facility] 2020-02-26 00:00:00 MISC. DEVICES [facility] 2020-02-26 00:00:00 null [facility] 2020-02-26 00:00:00 null [facility] 2020-02-26 00:00:00 null [facility] 2020-02-26 00:00:00 null [facility] 2020-02-26 00:00:00 MISC. DEVICES [facility] 2020-02-26 00:00:00 null [facility] 2020-02-26 00:00:00 null [facility] 2020-02-26 00:00:00 null [facility] 2020-02-26 00:00:00 null [facility] 2020-02-26 00:00:00 MISC. DEVICES [facility] 2020-02-26 00:00:00 null [facility] 2020-02-26 00:00:00 null [facility] 2020-02-26 00:00:00 null [facility] 2020-02-26 00:00:00 null [facility] 2020-02-26 00:00:00 MISC. DEVICES [facility] 2020-02-26 00:00:00 null [facility] 2020-02-26 00:00:00 null [facility] 2020-02-26 00:00:00 null [facility] 2020-02-26 00:00:00 null [facility] 2020-02-26 00:00:00 MISC. DEVICES [facility] 2020-02-26 00:00:00 null [facility] 2020-02-26 00:00:00 null [facility] 2020-04-06 00:00:00 null [facility] 2020-04-06 00:00:00 null [facility] 2020-04-06 00:00:00 null [facility] 2020-04-06 00:00:00 null [facility] 2020-04-06 00:00:00 METOCLOPRAMIDE HCL [facility] 2020-04-06 00:00:00 FERROUS SULFATE [facility] 2020-04-06 00:00:00 FERROUS SULFATE [facility] 2020-04-06 00:00:00 METOCLOPRAMIDE HCL [facility] 2020-04-06 00:00:00 null [facility] 2020-04-06 00:00:00 null [facility] 2020-04-06 00:00:00 null [facility] 2020-04-06 00:00:00 null [facility] 2020-04-06 00:00:00 METOCLOPRAMIDE HCL [facility] 2020-04-06 00:00:00 FERROUS SULFATE [facility] 2020-04-06 00:00:00 FERROUS SULFATE [facility] 2020-04-06 00:00:00 METOCLOPRAMIDE HCL [facility] 2020-04-06 00:00:00 null [facility] 2020-04-06 00:00:00 null [facility] 2020-04-06 00:00:00 null [facility] 2020-04-06 00:00:00 null [facility] 2020-04-06 00:00:00 METOCLOPRAMIDE HCL [facility] 2020-04-06 00:00:00 FERROUS SULFATE [facility] 2020-04-06 00:00:00 FERROUS SULFATE [facility] 2020-04-06 00:00:00 METOCLOPRAMIDE HCL [facility] 2020-04-06 00:00:00 null [facility] 2020-04-06 00:00:00 null [facility] 2020-04-06 00:00:00 null [facility] 2020-04-06 00:00:00 null [facility] 2020-04-06 00:00:00 METOCLOPRAMIDE HCL [facility] 2020-04-06 00:00:00 FERROUS SULFATE [facility] 2020-04-06 00:00:00 FERROUS SULFATE [facility] 2020-04-06 00:00:00 METOCLOPRAMIDE HCL [facility] 2020-04-06 00:00:00 null [facility] 2020-04-06 00:00:00 null [facility] 2020-04-06 00:00:00 null [facility] 2020-04-06 00:00:00 null [facility] 2020-04-06 00:00:00 METOCLOPRAMIDE HCL [facility] 2020-04-06 00:00:00 FERROUS SULFATE [facility] 2020-04-06 00:00:00 FERROUS SULFATE [facility] 2020-04-06 00:00:00 METOCLOPRAMIDE HCL [facility] 2020-04-06 00:00:00 null [facility] 2020-04-06 00:00:00 null [facility] 2020-04-06 00:00:00 null [facility] 2020-04-06 00:00:00 null [facility] 2020-04-06 00:00:00 METOCLOPRAMIDE HCL [facility] 2020-04-06 00:00:00 FERROUS SULFATE [facility] 2020-04-06 00:00:00 FERROUS SULFATE [facility] 2020-04-06 00:00:00 METOCLOPRAMIDE HCL [facility] 2020-04-06 00:00:00 null [facility] 2020-04-06 00:00:00 null [facility] 2020-04-06 00:00:00 null [facility] 2020-04-06 00:00:00 null [facility] 2020-04-06 00:00:00 METOCLOPRAMIDE HCL [facility] 2020-04-06 00:00:00 FERROUS SULFATE [facility] 2020-04-06 00:00:00 FERROUS SULFATE [facility] 2020-04-06 00:00:00 METOCLOPRAMIDE HCL [facility] 2020-04-06 00:00:00 null [facility] 2020-04-06 00:00:00 null [facility] 2020-04-06 00:00:00 null [facility] 2020-04-06 00:00:00 null [facility] 2020-04-06 00:00:00 METOCLOPRAMIDE HCL [facility] 2020-04-06 00:00:00 FERROUS SULFATE [facility] 2020-04-06 00:00:00 FERROUS SULFATE [facility] 2020-04-06 00:00:00 [facility] Procedures date description facility 2020-02-26 00:00:00 [id number] [facility] date description facility 2020-02-26 00:00:00 [facility] date description facility 2020-02-26 00:00:00 First Vx - Ix admin via ID IM [facility] CPV or jet injects without RHC counseling by physician date description facility 2020-02-26 [facility] date description facility 2020-02-26 00:00:00 [id number] - SUBSEQUENT [facility] CPV VISIT RHC date description facility 2020-02-26 00:00:00 [facility] date description facility 2020-02-26 00:00:00 First Vx - Ix admin via ID IM [facility] CPV or jet injects without RHC counseling by physician date description facility 2020-02-26 00:00[facility] date description facility 2020-02-26 00:00:00 [id number] - [facility]ENT [facility] VISIT [facility] date description facility 2020-02-26 00:00:00 [facility] date description facility 2020-02-26 00:00:00 First Vx - Ix admin via ID IM [facility] CPV or jet injects without RHC counseling by physician date description facility 2020-02-26 00:00[facility] date description facility 2020-02-26 00:00:00 [id number] - [facility]SEQUENT [facility] VISIT RHC date description facility 2020-02-26 00:00:00 US OB FOLLOW-UP [facility] CPV RHC date description facility 2020-02-26 00:00:00 First Vx - Ix admin via ID IM [facility] CPV or jet injects without RHC counseling by physician date description facility 2020-02-26 00:00[facility] date description facility 2020-02-26 00:00:00 [id number] - [facility]SEQUENT [facility] VISIT RHC date description facility 2020-02-26 00:00:00 US OB FOLLOW-UP [facility] CPV RHC date description facility 2020-02-26 00:00:00 First Vx - Ix admin via ID IM [facility] CPV or jet injects without RHC counseling by physician date description facility 2020-02-26 [facility] date description facility 2020-02-26 00:00:00 [id number] - [facility]SEQUENT [facility] VISIT RHC date description facility 2020-02-26 00:00:00 First Vx - Ix admin via ID IM [facility] CPV or jet injects without RHC counseling by physician date description facility 2020-02-26 [facility] date description facility 2020-02-26 00:00:00 [id number] - [facility]SEQUENT [facility] VISIT RHC date description facility 2020-02-26 00:00:00 [facility] date description facility 2020-02-26 00:00:00 First Vx - Ix admin via ID IM [facility] CPV or jet injects without RHC counseling by physician date description facility 2020-02-26 00:00[facility] date description facility 2020-02-26 00:00:00 [id number] - [facility]SEQUENT [facility] VISIT RHC date description facility 2020-02-26 00:00:00 US OB FOLLOW-UP [facility] CPV RHC date description facility 2020-02-26 00:00:00 First Vx - Ix admin via ID IM [facility] CPV or jet injects without RHC counseling by physician date description facility 2020-02-26 [facility] date description facility 2020-02-26 00:00:00 [id number] - SUBSEQUENT [facility] VISIT RHC date description facility 2020-02-26 00:00:00 [facility] date description facility 2020-02-26 00:00:00 First Vx - Ix admin via ID IM [facility] CPV or jet injects without RHC counseling by physician date description facility 2020-02-26 [facility] date description facility 2020-02-26 00:00:00 [id number] - SUBSEQUENT [facility] VISIT RHC date description facility 2020-02-26 00:00:00 US OB FOLLOW-UP [facility] RHC date description facility 2020-02-26 00:00:00 First Vx - Ix admin via ID IM [facility] CPV or jet injects without RHC counseling by physician date description facility 2020-02-26 00:00:00 [facility]HC date description facility 2020-02-26 00:00:00 [id number] - SUBSEQUENT [facility] VISIT RHC date description facility 2020-02-26 00:00:00 US OB FOLLOW-UP [facility] RHC date description facility 2020-02-26 00:00:00 First Vx - Ix admin via ID IM [facility] CPV or jet injects without RHC counseling by physician date description facility 2020-02-26 00:00:00 [facility]HC date description facility 2020-03-17 00:00:00 [id number] - SUBSEQUENT [facility] VISIT RHC date description facility 2020-03-17 00:00:00 [facility]HC date description facility 2020-03-17 00:00:00 [id number] - SUBSEQUENT [facility] VISIT RHC date description facility 2020-03-17 00:00:00 [facility]HC date description facility 2020-03-17 00:00:00 [id number] - SUBSEQUENT [facility]PV VISIT RHC date description facility 2020-03-17 00:00:00 [facility]HC date description facility 2020-03-17 00:00:00 [id number] - SUBSEQUENT [facility] VISIT RHC date description facility 2020-03-17 00:00:00 [facility] date description facility 2020-03-17 00:00:00 [id number] - SUBSEQUENT [facility] VISIT RHC date description facility 2020-03-17 00:00:00 [facility] date description facility 2020-03-17 00:00:00 [id number] - SUBSEQUENT [facility] VISIT RHC date description facility 2020-03-17 00:00:00 [facility]HC date description facility 2020-03-17 00:00:00 [id number] - SUBSEQUENT [facility] VISIT RHC date description facility 2020-03-17 00:00:00 [facility] date description facility 2020-03-17 00:00:00 [id number] - SUBSEQUENT [facility] VISIT RHC date description facility 2020-03-17 00:00:00 [facility]HC date description facility 2020-03-17 00:00:00 [id number] - SUBSEQUENT [facility] VISIT RHC date description facility 2020-03-17 00:00:00 [facility] date description facility 2020-03-17 00:00:00 [id number] - SUBSEQUENT [facility] VISIT RHC date description facility 2020-03-17 00:00:00 [facility] Results Social History date description facility 2020-02-26 00:00:00 Former smoker [facility]HC date description facility 2020-03-17 00:00:00 Former smoker [facility] Social History date description facility 2020-02-26 00:00:00 Former smoker [facility]HC date description facility 2020-03-17 00:00:00 Former smoker [facility]HC date description facility [id number]
== END 2020-04-22 12:20 | disposition home or self-care (01) ==
LOC: WFO 10:47 → FBP 10:51 → WFO 12:20
PROVIDERS: ATTEND Obstetrics & Gynecology
DX: O14.03 Mild to moderate pre-eclampsia, third trimester (principal); Z3A.35 35 weeks gestation of pregnancy
CPT/HCPCS: 59025; 80053; 82570; 84156; 85025

== ENCOUNTER 2020-04-26 10:07 | Outpatient (CLI) | payer MEDICAID ==
[2020-04-26] MEDS ORDERED: NIFEdipine 10 MG CAPSULE PO ONE ×2 (10:20→12:00)
[2020-04-26 10:34] LABS: BILIRUBIN,URINE NEGATIVE (NEGATIVE); GLUCOSE, URINE (UA) NEGATIVE (NEGATIVE); KETONES,URINE (UA) NEGATIVE (NEGATIVE); LEUKOCYTE ESTERASE, URINE NEGATIVE (NEGATIVE); NITRITE,URINE NEGATIVE (NEGATIVE); OCCULT BLOOD,URINE NEGATIVE (NEGATIVE); PROTEIN,URINE NEGATIVE (NEGATIVE); UROBILINOGEN,URINE 0.2 (NORMAL) E.U./dL (NORMAL)
[2020-04-26 10:42] LABS: BACTERIA,URINE None Seen /HPF (None Seen); CLARITY,URINE CLEAR (CLEAR); RBC,URINE None Seen /HPF (0-5); SQUAMOUS EPITHELIAL CELL,UR RARE Squamous (<= Few)
[2020-04-26 10:45] VITALS: BP 130/74
[2020-04-26 10:46] LABS: CREATININE,URINE 107.5 mg/dL; PROTEIN/CREATININE RATIO,URINE 0.2 (<=0.2)
--- NOTE | 2020-04-26 13:16 | PROCEDURE REPORT ---
- HPI Diagnosis/Indication for NST: Other ( onset of contractions) Current EDU 05/27/20 Gestation 35 Weeks and 4 Days 3 Para 2 Vital Signs Temperature 98.2 F 04/26/20 10:38 Heart Rate 93 04/26/20 10:38 Respiratory Rate 18 04/26/20 10:38 Blood Pressure 130/74 04/26/20 10:38 O2 Saturation 100 04/26/20 10:38 Temperature 98.2 F 04/26/20 10:38 Heart Rate 93 04/26/20 10:38 Respiratory Rate 18 04/26/20 10:38 Blood Pressure 130/74 04/26/20 10:38 O2 Saturation 100 04/26/20 10:38 - NST Procedure NST Procedure Start Time 11:06 Stop Time 12:02 - Results and Plan Findings/Impression: Baseline: BPM 140 Variability: Moderate Accelerations: Present Decelerations: Absent Trends in FHR over time: no changes [place] contractions in 10 minutes: Initially q2min. At end of visit absent contractions Impression: reactive Category 1 NST Patient presented with contractions q2-3min at home that were severe and felt like labor. No VB or LOF. Feeling good FM. SVE improved from last visit--now 1cm and 25% effaced. No change in SVE during triage visit. UCs resolved completely with nifedipine 30mg po x1. Pt was tocolyzed due to her history of transport about 1w ago for labor and then coming home and contr action-free. Plan for her routine care with NST/BPP for her preeclampsia.
--- NOTE | 2020-04-26 13:22 | Labor Flowsheet ---
Labor Flowsheet Datetime Report Generated by CPN: 04/26/2020 13:21 Datetime: 04/26/2020 11:29 UTERINE ACTIVITY Monitor Interventions for UA: [place] Adjusted ASSESSMENT A Monitor Interventions for FHR: Ultrasound Adjusted PATIENT CARE Patient Position/Activity: Left Lateral Datetime: 04/26/2020 10:24 Pulse: 94 SpO2 (%): 95 COMMUNICATION LaborFlag: Antepartum Datetime: 04/26/2020 10:20 VITAL SIGNS NBP Sys/Mini/Mean (mmHg): 130 : 74 : 86
== END 2020-04-26 13:10 | disposition home or self-care (01) ==
LOC: WFO 10:07 → FBP 10:09 → WFO 13:10
PROVIDERS: ATTEND Obstetrics & Gynecology
DX: O09.213 Supervision of pregnancy with history of pre-term labor, third trimester (principal); O14.03 Mild to moderate pre-eclampsia, third trimester; Z3A.35 35 weeks gestation of pregnancy
CPT/HCPCS: 59025; 76819; 81001; 82570; 84156; 87210; 99213; A9270; 87086

== ENCOUNTER 2020-04-26 18:46 | Outpatient (CLI) | payer MEDICAID ==
--- OUTSIDE RECORDS SUMMARY | 2020-04-27 04:55 | EXTERNAL MEDICAL SUMMARY RPT | Continuity of Care Document ---
:1995 Demographics Phone Unavailable Preferred Language Ivorian Marital Status Unknown Alevism Affiliation Unknown Race Unknown Ethnic Group Unknown Author Organization [place] Address [address] [place] [address] Phone Care Team Providers Name Role Phone Alanna Unavailable Unavailable Registrar Unavailable Unavailable MD Unavailable Unavailable MD Unavailable Unavailable Rickey Unavailable Unavailable RN Unavailable Unavailable Registrar Unavailable Unavailable PROTEIN SPECIALIST Unavailable Unavailable PROTEIN SPECIALIST Unavailable Unavailable MA-C Unavailable Unavailable Referrals Unavailable Unavailable QUARTER FOLDER Unavailable Unavailable Problems date description facility 2020-02-26 00:00:00 [facility] 2020-02-26 00:00:00 Details of drug misuse behavior [facility] C[facility] RHC 2020-02-26 00:00:00 Uterine size date discrepancy, [facility] antepartum condition or RHC complication 2020-02-26 00:00:00 Vaccination for [facility]htheria, [facility] pertussis, and tetanus RHC 2020-02-26 00:00:00 Uterine size for [facility] discrepancy RHC 2020-02-26 00:00:00 Tobacco smoking status [facility] CPV RHC 2020-02-26 00:00:00 Administration of diphtheria, [facility] CPV pertussis, and tetanus vaccine RHC 2020-02-26 00:00:00 [facility] vaccination and inoculation RHC against other combinations of diseases 2020-02-26 00:00:00 US [facility] 2020-02-26 00:00:00 1HR GTT [facility] 2020-02-26 00:00:00 Uterine size-date discrepancy, [facility] third trimester RHC 2020-02-26 [...] 00:00:00 Details of drug misuse behavior [facility] 2020-03-17 00:00:00 Exercise [facility] 2020-03-17 00:00:00 [facility] 2020-03-17 00:00:00 Health-related [facility] 2020-03-17 00:00:00 [facility] and exposure [facility] 2020-04-04 14:31 ANEMIA, UNSPECIFIED [facility] 2020-04-04 14:31 HYPOKALEMIA [facility] 2020-04-04 14:31 NICOTINE DEPENDENCE, [facility] UNSPECIFIED, UNCOMPLICATED 2020-04-04 14:31 INFECTIONS OF KIDNEY IN [facility] , THIRD TRIMESTER 2020-04-04 14:31 MATERN CARE FOR ABNLT FETL HRT [facility] RATE OR RHYM, 3RD T 2020-04-04 14:31 ANEMIA COMPLICATING , [facility] THIRD TRIMESTER 2020-04-04 14:31 ENDO, NUTRITIONAL AND METAB [facility] DISEASES COMP PREG, TH 2020-04-04 14:31 SMOKING (TOBACCO) COMPLICATING [facility] , THIRD TR 2020-04-04 14:[address] [facility] 2020-04-04 14:31 OTHER NURSING HOME (CURRENT) DRUG [facility] THERAPY 2020-04-04 14:31 PERSONAL HISTORY OF URINARY [facility] CALCULI 2020-04-12 00:00:00 Infectious disease in mother [facility] CPV complicating , RHC childbirth AND/OR puerperium 2020-04-12 00:00:00 Other specified infectious and [facility] CPV parasitic diseases complicating RHC , childbirth, or the puerperium, antepartum condition or complication 2020-04-12 00:00:00 Streptococcus B carrier state [facility] CPV complicating RHC 2020-04-19 17:05 Pre Term Labor [employer] 2020-04-21 00:00:00 US BIOPHYSICAL PROFILE [facility] CPV RHC 2020-04-21 00:00:00 Mild to moderate pre-eclampsia, [facility] CPV third trimester RHC 2020-04-21 00:00:00 Pre-eclampsia [facility] CPV RHC Allergies date description facility ACETAMINOPHEN [facility] PENICILLINS [facility] PRAVASTATIN [facility] [place] ROSUVASTATIN CALCIUM [facility] Med ical Center NO KNOWN ALLERGIES [facility] NO ALLERGY INFORMATION AVAILABLE [facility] PENICILLINS [facility] SULFA (SULFONAMIDE ANTIBIOTICS) [facility] NO KNOWN ALLERGIES [facility] GRASS POLLEN [facility] PRESERVATIVE [facility] MIDAZOLAM [facility] CHOCOLATE FLAVOR [facility] No Known Drug Allergies [facility] hydroxychloroquine [facility] NO KNOWN ENVIRONMENTAL ALLERGIES [facility] No Known Drug Allergies [facility] Medications date description facility 2020-02-26 00:00:00 null [...] Care CPV RHC 2020-04-06 00:00:00 METOCLOPRAMIDE HCL [facility] Procedures date description facility 2020-02-26 00:00:00 [id number] [facility] VISIT RHC date description facility 2020-02-26 00:00:00 [facility] date description facility 2020-02-26 00:00:00 First Vx - Ix admin via ID IM [facility] Women[facility] Care CPV or jet injects without RHC counseling by physician date description facility 2020-02-26 00:00:[facility]HC date description facility 2020-02-26 00:00:00 [id number] - SUBSEQUENT [facility] Women[facility] CPV VISIT RHC date description facility 2020-02-26 00:00:00 [facility] date description facility 2020-02-26 00:00:00 First Vx - Ix admin via ID IM [facility] CPV or jet injects without RHC counseling by physician date description facility 2020-02-26 00:00:00 [facility] date description facility 2020-02-26 00:00:00 [id number] - [facility] VISIT RHC date description facility 2020-02-26 00:00:00 [facility] date description facility 2020-02-26 00:00:00 First Vx - Ix admin via ID IM [facility] CPV or jet injects without RHC counseling by physician date description facility 2020-02-26 [facility] date description facility 2020-02-26 00:00:00 [id number] - [facility]ENT [facility] VISIT RHC date description facility 2020-02-26 00:00:00 US OB FOLLOW-UP [facility] CPV RHC date description facility 2020-02-26 00:00:00 First Vx - Ix admin via ID IM [facility] CPV or jet injects without RHC counseling by physician date description facility 2020-02-26 00:00:00 [facility] date description facility 2020-02-26 00:00:00 [id number] - [facility]SEQUENT [facility] VISIT RHC date description facility 2020-02-26 00:00:00 US OB FOLLOW-UP [facility] CPV RHC date description facility 2020-02-26 00:00:00 First Vx - Ix admin via ID IM [facility] CPV or jet injects without RHC counseling by physician date description facility 2020-02-26 00:00[facility] date description facility 2020-02-26 00:00:00 [id number] - [facility]SEQUENT [facility]PV VISIT RHC date description facility 2020-02-26 00:00:00 First Vx - Ix admin via ID IM [facility] CPV or jet injects without RHC counseling by physician date description facility 2020-02-26 00:00[facility]00 [facility] date description facility 2020-02-26 00:00:00 [id number] - [facility]ENT [facility]PV VISIT RHC date description facility 2020-02-26 00:00:00 [facility] date description facility 2020-02-26 00:00:00 First Vx - Ix admin via ID IM [facility] Care CPV or jet injects without RHC counseling by physician date description facility 2020-02-26 [facility] date description facility 2020-02-26 00:00:00 [id number] - [facility]ENT [facility] C[facility] VISIT RHC date description facility 2020-02-26 00:00:00 US OB FOLLOW-UP [facility] CPV RHC date description facility 2020-02-26 00:00:00 First Vx - Ix admin via ID IM [facility] CPV or jet injects without RHC counseling by physician date description facility 2020-02-26 00:00:[facility] date description facility 2020-02-26 00:00:00 [id number] - [facility]ENT [facility] CPV VISIT RHC date description facility 2020-02-26 00:00:00 [facility] date description facility 2020-02-26 00:00:00 First Vx - Ix admin via ID IM [facility] CPV or jet injects without RHC counseling by physician date description facility 2020-02-26 00:00:00 [facility]HC date description facility 2020-02-26 00:00:00 [id number] - [facility]SEQUENT [facility] CPV VISIT RHC date description facility 2020-02-26 00:00:00 [facility] RHC date description facility 2020-02-26 00:00:00 First Vx - Ix admin via ID IM [facility] Women's Care CPV or jet [...] Vx - Ix admin via ID IM [facility] Women's Care CPV or jet [...] n's Care CPV RHC date description facility [id number]
--- NOTE | 2020-04-27 13:47 | Ultrasound Report ---
PROCEDURE: OB Biophysical Profile INDICATIONS: MILD TO MODERATE PRE ECLAMPSIA OUTSIDE/PRIOR DATING DATA: Last menstrual period (LMP): 08/21/2019. LMP-based estimated date of delivery (TONJA): 05/27/2020. First dating scan (date and location): 11/30/2019. Estimated date of delivery (TONJA) from first dating scan: 05/30/2020. TECHNIQUE: Real-time scanning was performed of the fetus, with image documentation and biometric liang surements. Biophysical profile was also obtained. Endovaginal scanning: Not performed COMPARISON: 03/18/2020 FINDINGS: General: A single living intrauterine gestation is present. Presentation: Vertex Placenta: Placental position is posterior, without previa. Amniotic fluid index: 23.5 cm, 92nd percentile for gestational age. heart rate: 155 beats per minute. Maternal cervical canal: Maternal cervix not well visualized on this study. Estimated gestational age from initial scan: 35 weeks and 1 day Biophysical profile: Tone: 2 points. Movement: 2 points. Respiration: 2 points. Largest pocket of fluid: 2 points (largest pocket measuring 6.9 cm). Umbilical artery Doppler: S/D ratios measure at the upper limits of normal for gestational age. Norm al cord Doppler waveforms. IMPRESSION: Single living intrauterine gestation with estimated gestational age of approximately 35 weeks and 1 d ay. Biophysical profile score of 8 out of 8 with normal S/D ratios and cord Doppler waveforms. Reviewed by: Kevin Vinson MD on 04/27/2020 12:46 PM [place] Approved by: Kevin Vinson MD on 04/27/2020 12:[address] [facility] Station ID: [id number]
== END 2020-04-26 18:47 | disposition home or self-care (01) ==
LOC: DI 18:46
PROVIDERS: ATTEND Obstetrics & Gynecology
DX: O14.03 Mild to moderate pre-eclampsia, third trimester (principal); Z3A.35 35 weeks gestation of pregnancy

== ENCOUNTER 2020-04-29 10:55 | Outpatient (CLI) | payer MEDICAID ==
[2020-04-29 12:07] LABS: BASOPHILS % (AUTO) 0.2 %; EOSINOPHILS # (AUTO) 0.1 10^3/uL (0.0-0.7); EOSINOPHILS % (AUTO) 0.7 %; LYMPHOCYTES # (AUTO) 2.1 10^3/uL (1.5-3.5); LYMPHOCYTES % (AUTO) 16.9 %; MEAN CORPUSCULAR HEMOGLOBIN 29.2 pg (27.0-31.0); MEAN CORPUSCULAR HGB CONC 32.4 g/dL (32.0-36.0); MEAN CORPUSCULAR VOLUME 89.9 fL (81.0-99.0); MEAN PLATELET VOLUME 9.2 fL (7.9-10.8); MONOCYTES % (AUTO) 7.9 %; NEUTROPHILS % (AUTO) 73.9 %; PLT - PLATELET COUNT 202 10^3/uL (130-450); RED BLOOD COUNT 3.77 10^6/uL (4.20-5.40); RED CELL DISTRIBUTION WIDTH 14.2 % (12.0-15.0); WHITE BLOOD COUNT 12.3 x10^3/uL (4.8-10.8)
[2020-04-29 12:19] LABS: ALBUMIN 3.3 g/dL (3.2-5.5); ALBUMIN/GLOBULIN RATIO 0.8 (1.0-2.2); BILIRUBIN,TOTAL 0.2 mg/dL (0.2-1.0); CALCIUM 9.7 mg/dL (8.5-10.3); CREATININE 0.5 mg/dL (0.4-1.0); TOTAL PROTEIN 7.5 g/dL (6.7-8.2)
[2020-04-29 12:47] LABS: CREATININE,URINE 142.9 mg/dL; PROTEIN/CREATININE RATIO,URINE 0.1 (<=0.2)
--- NOTE | 2020-04-29 13:39 | PROCEDURE REPORT ---
- HPI Diagnosis/Indication for NST: Other (preeclampsia without severe features) Vital Signs Temperature 98.4 F 04/29/20 11:10 Heart Rate 96 04/29/20 11:10 Respiratory Rate 17 04/29/20 11:10 Blood Pressure 117/73 04/29/20 11:10 O2 Saturation 98 04/29/20 11:10 Temperature 98.4 F 04/29/20 11:10 Heart Rate 96 04/29/20 11:10 Respiratory Rate 17 04/29/20 11:10 Blood Pressure 117/73 04/29/20 11:10 O2 Saturation 98 04/29/20 11:10 - NST Procedure NST Procedure Start Time 10:10 Stop Time 11:10 - Results and Plan Findings/Impression: Baseline: 130 BPM Variability: Moderate Accelerations: Present Decelerations: Absent Trends in FHR over time: no changes [place] contractions in 10 minutes: 3 Impression: reactive Category 1 NST No WILSON, visual changes, or upper abd pain. UC feel mild. No VB or LOF. Normal PIH labs and P:C ratio. SVE unchanged at 1.5cm. Discharged home, she will return PRN more intense UC, she is 36w. GBS checked.
[2020-04-29 14:50] VITALS: BP 123/78
--- NOTE | 2020-04-29 14:51 | Labor Flowsheet ---
Labor Flowsheet Datetime Report Generated by CPN: 04/29/2020 14:51 Datetime: 04/29/2020 11:51 VITAL SIGNS NBP Sys/Mini/Mean (mmHg): 123 : 78 : 89 Pulse: 90 COMMUNICATION LaborFlag: Labor Datetime: 04/29/2020 11:49 PATIENT CARE Patient Position/Activity: High Fowlers Patient Care Comments: lunch tray brought Datetime: 04/29/2020 11:48 Contraction Comments: pt. rating ctx 5/10. Ctx palpating mild to moderate Datetime: 04/29/2020 11:07 Stage of : Labor Datetime: 04/26/2020 11:29 UTERINE ACTIVITY Monitor Interventions for UA: [place] Adjusted ASSESSMENT A Monitor Interventions for FHR: Ultrasound Adjusted Datetime: 04/26/2020 10:24 SpO2 (%): 95
== END 2020-04-29 14:00 | disposition home or self-care (01) ==
LOC: WFO 10:55 → FBP 11:03 → WFO 14:00
PROVIDERS: ATTEND Obstetrics & Gynecology
DX: O14.03 Mild to moderate pre-eclampsia, third trimester (principal); Z3A.36 36 weeks gestation of pregnancy
CPT/HCPCS: 36415; 59025; 80053; 82570; 84156; 85025; 87797

== ENCOUNTER 2020-05-03 16:47 | Outpatient (CLI) | payer MEDICAID ==
[2020-05-03 19:35] VITALS: BP 128/81
--- NOTE | 2020-05-03 19:36 | Labor Flowsheet ---
Labor Flowsheet Datetime Report Generated by CPN: 05/03/2020 19:36 Datetime: 05/03/2020 18:31 VITAL SIGNS NBP Sys/Mini/Mean (mmHg): 128 : 81 : 92 Pulse: 80 COMMUNICATION LaborFlag: Labor Datetime: 05/03/2020 18:29 SpO2 (%): 100 Datetime: 05/03/2020 18:15 Temperature (C): 36.6 Datetime: 05/03/2020 18:12 Stage of : Labor Datetime: 04/29/2020 11:49 PATIENT CARE Patient Position/Activity: High Fowlers Patient Care Comments: lunch tray brought Datetime: 04/29/2020 11:48 Contraction Comments: pt. rating ctx 5/10. Ctx palpating mild to moderate Datetime: 04/26/2020 11:29 UTERINE ACTIVITY Monitor Interventions for UA: [place] Adjusted ASSESSMENT A Monitor Interventions for FHR: Ultrasound Adjusted
--- NOTE | 2020-05-04 08:48 | Ultrasound Report ---
PROCEDURE: OB Biophysical Profile INDICATIONS: MILD TO MODERATE PRE ECLAMPSIA OUTSIDE/PRIOR DATING DATA: Last menstrual period (LMP): 08/21/2019. LMP-based estimated date of delivery (TONJA): 05/27/2020. First dating scan (date and location): 11/30/2019. Estimated date of delivery (TONJA) from first dating scan: 05/30/2020. TECHNIQUE: Real-time scanning was performed of the fetus, with image documentation and biometric liang surements. Biophysical profile was also obtained. Endovaginal scanning: Not performed COMPARISON: Multiple prior studies, the most recent from 04/26/2020 FINDINGS: General: A single living intrauterine gestation is present. Presentation: Vertex Placenta: Placental position is posterior, without previa. Amniotic fluid index: 24 cm, 94th percentile for gestational age. Largest pocket is 9.3 cm. heart rate: 141 beats per minute. Maternal cervical canal: Not seen Biophysical profile: Tone: 2 points. Movement: 2 points. Respiration: 2 points. Largest pocket of fluid: 2 points. Systolic to diastolic umbilical artery ratios range from 2.3-2.78 at the placenta, 3.1-3.96 in the mi d cord, and 2.3-3.4 at the fetus IMPRESSION: 1. Single living intrauterine . 2. Normal biophysical profile score. 3. One of 2 samples of the mid umbilical artery systolic to diastolic ratio is at the upper limits of normal. While this is similar compared to the prior study, it may also be technical artifact. 4. Amniotic fluid index at the upper limits of normal, also consistent with prior studies. Reviewed by: Yesica Campos MD on 05/04/2020 8:47 AM PST Approved by: Yesica Campos MD on 05/04/2020 8:47 AM PST Station ID: [id number]
--- NOTE | 2020-05-06 21:56 | PROCEDURE REPORT ---
- HPI Diagnosis/Indication for NST: Other (pre-eclampsia) Current Para 2 Vital Signs Temperature 97.9 F 05/03/20 18:15 Heart Rate 85 05/03/20 18:15 Respiratory Rate 17 05/03/20 18:15 Blood Pressure 124/71 05/03/20 18:15 O2 Saturation 100 05/03/20 18:15 Temperature 97.9 F 05/03/20 18:15 Heart Rate 80 05/03/20 18:31 Respiratory Rate 20 05/03/20 18:31 Blood Pressure 128/81 H 05/03/20 18:31 O2 Saturation 100 05/03/20 18:31 - NST Procedure NST Procedure Start Date 05/03/20 Start Time 18:11 Stop Time 18:37 Vibroacoustic Stimulation Used No Patient States Movement Yes EFM 130 mod yoli 15x15 accels no decels TOCO: Q3-4 min; mild - Results and Plan Findings/Impression: Patient is a at 36+4 wga with complicated by PTL and possible pre-eclampsia here for NST Cat I tracing Cont with twice weekly NST and weekly JUMA IOL at 39 weeks in setting of pre-eclampsia DX: labor Pre-eclampsia
== END 2020-05-03 18:40 | disposition home or self-care (01) ==
LOC: DI 16:47 → FBP 18:04 → WFO 18:40
PROVIDERS: ATTEND Obstetrics & Gynecology
DX: O14.93 Unspecified pre-eclampsia, third trimester (principal); O60.03 Preterm labor without delivery, third trimester; Z3A.36 36 weeks gestation of pregnancy
CPT/HCPCS: 59025

== ENCOUNTER 2020-05-06 16:48 | Outpatient (CLI) | payer MEDICAID ==
[2020-05-06 18:27] VITALS: BP 121/69
--- NOTE | 2020-05-06 21:25 | HISTORY & PHYSICAL EXAMINATION ---
Admit History - Visit Reason Visit Reason: Other (IOL) - : 3 Parity: 2 Smoking Status: Former smoker - Mother's Labs Mother's Blood Type: positive: O Mother's RH: positive: Positive GBS: positive: Group B Strep Positive Rubella Status: positive: Immune - Other Maternal History Other Maternal History: Patient is a 24 yo at 37+0 wga who presented for IOL for pre-eclampsia Patient was transferred to [facility] at 34+3 wga for labor. Cervical exam was stable on observation and patient was discharged to home. Transferring provider reports getting a verbal report of pre-eclampsia diagnosed while at [facility]. She has been getting twice weekly NST but has not had any follow-up in clinic since that time. She was scheduled for IOL for pre-eclampsia. However, review of records in [facility] do not show any elevated blood pressures and no abnormal urine protein measures. Records were requested from [facility]. There are not documented elevated blood pressures and no documentation of PIH labs. Discharge summary makes no mention of hypertension. Patient is milady. Observed on L&D for possible labor. No LOF or VB. Bedside US confirmed vertex. Initial U/S: at 14.0 wks c/w LMP for TONJA 05/27/2020 O pos/Rubella immune Gentic testing: desires QUAD-ordered at 14.4wks but not completed FAS: Placenta posterior. JUMA wnl. EFW 35%. 3VC Suboptimal views of heart, follow up indicated- order placed. f/u EFW 1497g, 54%tile; JUMA WNL Glucola 138 TDAP 02/26/2020 Influenza 01/27/2020 GBS- positive HSV: denies self and partner Breast pump Rx provided MOD: . Spouse: Luis Alfredo. Epidural. Another BOY! Klaus Neri; - struggled with previous 2 children but desires to breastfeed. pp contraception: Plans vasectomy PAP: 11/01/2001- neg IOL for preE w/severe features scheduled for 05/06 at 1700- will need COVID swab on admit Meds/Allgy - Home Medications Home Medications: Ambulatory Orders Medication Instructions Recorded Confirmed Hydrocodone/Acetaminophen 1 - 2 each PO Q6H PRN #14 tablet 03/24/18 [Hydrocodon-Acetaminophen 5-325] Dicyclomine [Bentyl] 20 mg PO QID #20 capsule 03/31/18 Hydrocodone/Acetaminophen 1 - 2 each PO Q6H PRN #14 tablet 03/31/18 [Hydrocodon-Acetaminophen 5-325] Levofloxacin [Levaquin] 500 mg PO DAILY 7 Days #7 tablet 03/31/18 Ondansetron Odt [Zofran] 4 mg TL Q6H PRN #10 tablet 03/31/18 metroNIDAZOLE [Flagyl] 500 mg PO TID 7 Days #21 tablet 03/31/18 Cephalexin Suspension [Keflex] 250 mg PO QID 5 Days #20 bottle 04/06/20 cephALEXin [Keflex] 250 mg PO DAILY 120 Days #90 04/06/20 capsule - Allergies Allergies/Adverse Reactions: Allergies Allergy/AdvReac Type Severity Reaction Status Date / Time No Known Drug Allergies Allergy Verified 03/31/18 06:34 Review of Systems - Other Findings Other Findings: As per HPI, otherwise remaining systems are negative. Physical - Abdominal Exam Vital Signs: Temp Pulse Resp BP Pulse Ox 98.1 F 93 17 121/69 05/06/20 18:09 05/06/20 18:09 05/06/20 18:09 05/06/20 18:09 Contraction Frequency (min/apart): Q3-4 min Contraction Intensity: positive: Moderate - Monitoring Heart Rate Baseline: 145 mod yoli 15x15 accels no decels Strip Review: positive: Category I - Presentation Presentation: positive: Vertex - Vaginal Exam Membranes: positive: Membranes intact Dilation (in cm): 3 Effacement (%): 80 Station: positive: -2 Cervical Position: positive: Midposition - Speculum Exam Speculum Exam Performed: positive: No - Other Notes Labor Progress Note/Additional Text: GEN: NAD HEENT: NCAT CV: RRR RESP: nl effort ABD: gravid, S&NT/ND EXT: WWP NEURO: A&O. Normal gait and coordination PSYCH: Appropraite affect Plan for Labor - Plan For Labor Plan for Labor: Patient is a 24 yo at 37+0 wga here for IOL IOL planned for pre-eclampsia -No evidenceof elevated blood pressures or positive P:C in any of [facility] monitoring -Review of records from [facility] show no indication that patient was diagnosed with HTN or pre-eclampsia -As such, cannot proceed with IOL in absence of diagnosis FWB: vertex, Cat I tracing, GBS pos -Cat I tracing LABOR: Observed patient for 1-2 hours with no change in cervical exam Discharged to home with warning signs reviewed DX: False labor
[2020-05-06] MEDS ORDERED: SODIUM CHLORIDE FLUSH 0.9% 10 ML SYRINGE IVP PRN (21:37)
--- NOTE | 2020-05-06 21:50 | Labor Flowsheet ---
Labor Flowsheet Datetime Report Generated by CPN: 05/06/2020 21:49 Datetime: 05/06/2020 21:20 UTERINE ACTIVITY Monitor Mode: External Frequency (min): 2-5 Quality: Moderate Duration (sec): 40-80 Pattern: Normal: <= 5 Contractions in 10 Minutes Resting Tone (Palpate): Relaxed ASSESSMENT A Monitor Mode: Telemetry FHR Baseline Rate : 140 Variability: Moderate 6-25 bpm Accelerations: 15X15 Decelerations: None Category: Category I Datetime: 05/06/2020 21:17 VAGINAL EXAM Dilatation (cm): 3.0 Effacement (%): 80 Station: -2 Exam by: McSorely Datetime: 05/06/2020 21:02 PAIN Pain Scale: 2 Pain Presence: Intermittent Pain Type: Cramping; Contraction Pain Location: Abdomen LaborFlag: Labor Datetime: 05/06/2020 21:00 Patient Care Comments: bouncing on ball at bedside Datetime: 05/06/2020 20:59 Monitor Interventions for FHR: Ultrasound Adjusted Datetime: 05/06/2020 20:32 Pain Relief Measures: Comfort Measures Pain Coping: Talking Through Contractions Comfort Measures: Breathing/Relaxation Datetime: 05/06/2020 20:03 COMMUNICATION Communication: RN at Bedside Communication Comments: discussed plan of care Datetime: 05/06/2020 19:50 Pain Assessment Comments: pt bouncing on birthing ball @ bedside Datetime: 05/06/2020 19:47 VITAL SIGNS NBP Sys/Mini/Mean (mmHg): 134 : 83 : 94 Pulse: 100 Datetime: 05/06/2020 19:36 Provider Notified (Name): McSorely Datetime: 05/06/2020 19:30 Resting Tone IUP (mmHg): Datetime: 05/06/2020 19:21 I/O Interventions: Up to BR Datetime: 05/06/2020 18:10 Monitor Interventions for UA: [place] Adjusted Contraction Comments: pt sitting up to eat dinner Datetime: 05/03/2020 18:29 SpO2 (%): 100 Datetime: 05/03/2020 18:15 Temperature (C): 36.6 Datetime: 05/03/2020 18:12 Stage of : Labor Datetime: 04/29/2020 11:49 PATIENT CARE Patient Position/Activity: High Fowlers
== END 2020-05-06 21:40 | disposition home or self-care (01) ==
LOC: WFO 16:48 → FBP 16:51 → WFO 21:40
PROVIDERS: ATTEND Obstetrics & Gynecology
DX: O47.1 False labor at or after 37 completed weeks of gestation (principal); Z3A.37 37 weeks gestation of pregnancy
CPT/HCPCS: 99213

== ENCOUNTER 2020-05-20 08:05 | Inpatient (IN) | payer MEDICAID ==
[2020-05-20] MEDS ORDERED: TRANEXAMIC ACID IN NACL 1,000 MG/100 ML BAG IV PRN (09:20)
[2020-05-20] MEDS ORDERED: ONDANSETRON 4 MG/2 ML VIAL IVP PRN ×2 (09:20→22:46)
[2020-05-20] MEDS ORDERED: ACETAMINOPHEN 325 MG TABLET PO PRN (09:20)
[2020-05-20] MEDS ORDERED: SODIUM CHLORIDE FLUSH 0.9% 10 ML SYRINGE IVP PRN (09:20)
[2020-05-20] MEDS ORDERED: CARBOPROST TROMETHAMINE 250 MCG/ML AMP IM PRN (09:20)
[2020-05-20] MEDS ORDERED: OXYTOCIN 10 UNIT/ML VIAL IM PRN (09:20)
[2020-05-20] MEDS ORDERED: OXYTOCIN/SODIUM CHLORIDE 500 ML IV PRN (09:20)
[2020-05-20] MEDS ORDERED: miSOPROStoL 200 MCG TABLET BC PRN (09:20)
[2020-05-20] MEDS ORDERED: fentaNYL 100 MCG/2 ML VIAL IVP PRN (09:20)
[2020-05-20] MEDS ORDERED: AMPICILLIN 2 GM in SODIUM CHLORIDE 0.9% MINIBAG 100 ML IV ONE (09:20)
[2020-05-20] MEDS ORDERED: METHYLERGONOVINE 0.2 MG/ML VIAL IM PRN (09:20)
[2020-05-20] MEDS ORDERED: LIDOCAINE-MPF 1% 30 ML VIAL ID PRN (09:20)
[2020-05-20 09:31] LABS: BASOPHILS % (AUTO) 0.2 %; EOSINOPHILS # (AUTO) 0.1 10^3/uL (0.0-0.7); EOSINOPHILS % (AUTO) 0.6 %; HGB - HEMOGLOBIN 11.6 g/dL (12.0-16.0); LYMPHOCYTES % (AUTO) 17.5 %; MEAN CORPUSCULAR HEMOGLOBIN 28.7 pg (27.0-31.0); MEAN CORPUSCULAR HGB CONC 32.3 g/dL (32.0-36.0); MEAN CORPUSCULAR VOLUME 88.9 fL (81.0-99.0); MEAN PLATELET VOLUME 11.3 fL (7.9-10.8); MONOCYTES # (AUTO) 0.8 10^3/uL (0.0-1.0); MONOCYTES % (AUTO) 7.1 %; NEUTROPHILS # (AUTO) 8.4 10^3/uL (1.5-6.6); NEUTROPHILS % (AUTO) 74.2 %; PLT - PLATELET COUNT 195 10^3/uL (130-450); RED BLOOD COUNT 4.04 10^6/uL (4.20-5.40); RED CELL DISTRIBUTION WIDTH 14.2 % (12.0-15.0); WHITE BLOOD COUNT 11.4 x10^3/uL (4.8-10.8)
[2020-05-20] MEDS ORDERED: ALBUTEROL NEB 2.5 MG/3 ML INH PRN (09:38)
[2020-05-20] MEDS: miSOPROStoL 100 MCG TABLET BC SCH ×3 (09:47→20:44)
--- NOTE | 2020-05-20 10:02 | HISTORY & PHYSICAL EXAMINATION ---
Admit History - Visit Reason Visit Reason: Other (Elective IOl at 39.0wks) - : 3 Parity: 2 Premature: 0 Ectopic: 0 : 0 Care: positive: Other ([facility]->[facility]->[facility]) Risk/History: positive: None, labor <37 weeks (resolved) Complications This : positive: None Smoking Status: Former smoker - Mother's Labs Mother's Blood Type: positive: O Mother's RH: positive: Positive GBS: positive: Group B Strep Positive Rubella Status: positive: Immune - Other Maternal History Other Maternal History: -24yo at 39.0wks gestation who presents to Labor and Delivery for pre- induction cervical ripening -Reports movement -Denies ctx/VB/LOF - care with [facility] which has been adequate, with period of care at [facility], now returned to [facility] care - Complications 1. Preeclampsia without severe features: This was determined by MDs to not be the case. Her P:C ratios are wnl, and 37.0wk induction is not indicated. Preeclampsia is no longer a working diagnosis and she is now appropriate for [facility] care 2. Persistent contractions: s/p steroids, transported to [facility] when cervical dilation happened at 34w, didn't deliver, SVE has been stable since then but pt has had bouts of strong contractions that have been treated with nifedipine. Now that she is 36w no further nifedipine will be given. 3. GBS positive 4. Pyelonephtitis this --has been on keflex 250mg daily until Yesterday. -Dating Criteria * Initial U/S: at 14.0 wks c/w LMP for TONJA 05/27/2020 -OB Hx *G1: 2015 @ 41wks. Male. 7#11oz *G2: 2018 @ 40wks. Male. 8#6oz *G3: Current -Medications * vitamin-daily *Keflex 250mg Daily- completed yesterday, no longer taking *Fe 325mg- daily *Reglan PRN headache or nausea- last taken approx. a week ago -Allergies *NKDA -Medical History *Asthma- exercise induced, has not used INH for years -Surgical History *Kidney Stone removal -Family History *Mother- Arthritis and Diabetes *Father- [place] <55yo -Social History *Former cigarette smoker. Vapes nicotine once weekly - Labs, Immunizations, and Findings Initial U/S: at 14.0 wks c/w LMP for TONJA 05/27/2020 O pos/Rubella immune Gentic testing: desires QUAD-ordered at 14.4wks but not completed FAS: Placenta posterior. JUMA wnl. EFW 35%. 3VC Suboptimal views of heart, follow up indicated- order placed. f/u EFW 1497g, 54%tile; JUMA WNL Glucola 138 TDAP 02/26/2020 Influenza 01/27/2020 GBS- positive HSV: denies self and partner Breast pump Rx provided MOD: . Spouse: Luis Alfredo. Epidural. Another BOY! Klaus Neri; - struggled with previous 2 children but desires to breastfeed. pp contraception: plans vasectomy -SVE -3/mod/mid/intact -Vertex by kyra and digital exam by CNLouie -EFW by dawna's 8.5# (Also maternal estimate) -FHTs per flowsheet -Assessment *34yo at 39.0wks induction presents for elected IOL *Fish Score 6- requires cervical ripening * Heart Tones- Category I -Plan *Admit to OBS(until active labor, SROM, AROM, epidural, or pitocin) *Cervical ripening with Misoprostol *Monitoring- Continuous *Comfort measures available- position changes, whirlpool tub, fentanyl, and epidural per maternal preference *Diet/Activity- per maternal preference *Anticipate Meds/Allgy - Home Medications Home Medications: Ambulatory Orders Medication Instructions Recorded Confirmed Albuterol Sulf [Ventolin Hfa 1 - 2 puffs INH Q4HR PRN 05/20/20 05/20/20 Inhaler] Ferrous Sulfate 325 mg PO 05/20/20 Metoclopramide [Reglan] 10 mg PO Q6H PRN 05/20/20 05/20/20 Pnv No.95/Ferrous Fum/Folic AC 1 each PO 05/20/20 [ Tablet] - Allergies Allergies/Adverse Reactions: Allergies Allergy/AdvReac Type Severity Reaction Status Date / Time No Known Drug Allergies Allergy Verified 03/31/18 06:34 Review of Systems - All Other Systems All Other Systems: reports: Reviewed and negative Physical - Abdominal Exam Vital Signs: Temp Pulse Resp BP Pulse Ox 36.6 C 118 H 20 140/80 H 05/20/20 08:18 05/20/20 08:18 05/20/20 08:18 05/20/20 08:18 Contraction Frequency (min/apart): intermittent Contraction Intensity: positive: Mild Uterine Resting Tone: positive: Soft - Monitoring Strip Review: positive: Category I - Presentation Presentation: positive: Vertex - Vaginal Exam Membranes: positive: Membranes intact Dilation (in cm): 2 Effacement (%): 80 Station: positive: -3 Cervical Position: positive: Midposition Plan for Labor - Plan For Labor I expect patient to be DC'd or transferred within 96 hours.: Yes
[2020-05-20] MEDS: LACTATED RINGERS 1,000 ML IV SCH ×2 (14:18→23:47)
[2020-05-20] MEDS: AMPICILLIN 1 GM in SODIUM CHLORIDE 0.9% MINIBAG 100 ML IV SCH (21:17)
[2020-05-20] MEDS: SODIUM CHLORIDE FLUSH 0.9% 10 ML SYRINGE IVP SCH ×2 (21:22→22:48)
[2020-05-20] MEDS ORDERED: OXYTOCIN/SODIUM CHLORIDE 500 ML IV SCH (21:27)
[2020-05-20] MEDS ORDERED: ROPIVACAINE 0.2% 200 MG/100 ML BAG EP ONE (22:01)
[2020-05-20] MEDS ORDERED: LIDOCAINE-MPF 1% 5 ML VIAL ONE (22:18)
--- NOTE | 2020-05-20 22:45 | ANESTHESIA ---
Pre-Anesthesia VS, & Labs - Diagnosis labor - Procedure labor epidural Vital Signs: Temp Pulse Resp BP Pulse Ox 36.6 C 96 18 140/80 H 100 05/20/20 19:12 05/20/20 14:44 05/20/20 14:44 05/20/20 08:18 05/20/20 14:44 Height: 5 ft 5 in Weight (kg): 115.666 kg Body Mass Index: 42.4 BMI Classification: Morbidly Obese - NPO >8 hours - Is Patient ?: Yes - Lab Results Current Lab Results: Laboratory Tests 05/20/20 09:55: Blood Type O POSITIVE, Antibody Screen NEGATIVE 05/20/20 08:45: WBC 11.4 H, RBC 4.04 L, Hgb 11.6 L, Hct 35.9 L, MCV 88.9, MCH 28.7, MCHC 32.3, RDW 14.2, Plt Count 195, MPV 11.3 H, Neut # (Auto) 8.4 H, Lymph # (Auto) 2.0, [place] # (Auto) 0.8, Eos # (Auto) 0.1, Baso # (Auto) 0.0, Absolute Nucleated RBC 0.00, Nucleated RBC % 0.0 Fish Bones: 05/20/20 08:45 Home Medications and Allergies Home Medications: Ambulatory Orders Albuterol Sulf [Ventolin Hfa Inhaler] 1 - 2 puffs INH Q4HR PRN 05/20/20 Ferrous Sulfate 325 mg PO 05/20/20 Metoclopramide [Reglan] 10 mg PO Q6H PRN 05/20/20 Pnv No.95/Ferrous Fum/Folic AC [ Tablet] 1 each PO 05/20/20 Active Medications Acetaminophen (Acetaminophen 500 Mg Tablet) 1,000 mg PO Q8H PRN PRN Reason: Pain or Fever > 38C (100.4F) Albuterol (Albuterol Neb 2.5 Mg/3 Ml) 2.5 mg INH RTQ4H PRN PRN Reason: Wheezing Fentanyl (Fentanyl 100 Mcg/2 Ml Vial) 50 mcg IVP Q1H PRN PRN Reason: PAIN Oxytocin/Sodium Chloride (Pitocin/Sodium Chloride) 500 mls @ 999 mls/hr IV PRN PRN; Protocol PRN Reason: POST- HEMORR PREVENTION Stop: 05/25/20 09:21 Tranexamic Acid (Tranexamic 1,000 Mg/100ml-Nacl) 1,000 mg in 100 mls @ 600 mls/hr IV .ONCE PRN PRN Reason: EBL >1200mL and within 3hr Stop: 05/25/20 09:21 Lactated Ringer's (Lr) 1,000 mls @ 100 mls/hr IV .Q10H [facility] Last Infusion: 05/20/20 16:29 Dose: Infused Documented by: Ampicillin Sodium 1 gm/ Sodium (Chloride) 100 mls @ 200 mls/hr IV Q4HR [facility] Last Infusion: 05/20/20 21:50 Dose: Infused Documented by: Oxytocin/Sodium Chloride (Pitocin/Sodium Chloride) 500 mls @ 1 mls/hr IV TITR [facility]; Protocol Lidocaine HCl (Lidocaine-Mpf 1% 30 Ml Vial) 30 ml ID .ONCE PRN PRN Reason: PERINEAL REPAIR Stop: 05/25/20 09:21 Methylergonovine Maleate (Methylergonovine 0.2 Mg/Ml Vial) 0.2 mg IM .ONCE PRN PRN Reason: Step 2: Hemorrhage protocol Stop: 05/25/20 09:21 Misoprostol (Misoprostol 200 Mcg Tablet) 800 mcg BC .ONCE PRN PRN Reason: Step 3: Hemorrhage protocol Stop: 05/25/20 09:21 Misoprostol (Misoprostol 100 Mcg Tablet) 50 mcg BC Q4HR [facility] Last Admin: 05/20/20 20:44 Dose: Not Given Documented by: Ondansetron HCl (Ondansetron 4 Mg/2 Ml Vial) 4 mg IVP Q4HR PRN PRN Reason: Nausea / Vomiting Oxytocin (Oxytocin 10 Unit/Ml Vial) 10 unit IM .ONCE PRN PRN Reason: Step one: If no IV access Stop: 05/25/20 09:21 Sodium Chloride (Sodium Chloride Flush 0.9% 10 Ml Syringe) 10 ml IVP 0100,0900,1700 [facility] Last Admin: 05/20/20 21:22 Dose: 10 ml Documented by: Sodium Chloride (Sodium Chloride Flush 0.9% 10 Ml Syringe) 10 ml IVP PRN PRN PRN Reason: NEEDED PER PROVIDER ORDERS Albuterol Sulf [Ventolin Hfa Inhaler] 1 - 2 puffs INH Q4HR PRN 05/20/20 Ferrous Sulfate 325 mg PO 05/20/20 Metoclopramide [Reglan] 10 mg PO Q6H PRN 05/20/20 Pnv No.95/Ferrous Fum/Folic AC [ Tablet] 1 each PO 05/20/20 Allergies/Adverse Reactions: Allergies Allergy/AdvReac Type Severity Reaction Status Date / Time No Known Drug Allergies Allergy Verified 03/31/18 06:34 Anes History & Medical History - Anesthetic History Anesthesia Complications: reports: No previous complications - Medical History Cardiovascular: reports: None Pulmonary: reports: Asthma Gastrointestinal: reports: None Urinary: reports: Kidney stones Neuro: reports: None Musculoskeletal: reports: None Endocrine/Autoimmune: reports: None, Other (obese) Blood Disorders: reports: None Skin: reports: None Smoking Status: Former smoker History of Cancer?: No - Surgical History Urologic: Ureterolithotomy (stones) - Obstetrical History : 3 Parity: 2 Events: positive: None, labor <37 weeks (resolved) Complications: positive: None Exam General: Alert Dental: WNL Mouth Opening: Greater than 4 Fingerbreadths Mallampati classification: II Respiratory: Lungs clear Cardiovascular: Regular rate Plan Anesthesia Type: Epidural Consent for Procedure(s) Verified and Reviewed: Yes Code Status: Attempt Resuscitation ASA classification: 2-Mild systemic disease Is this case an emergency?: No
[2020-05-20] MEDS ORDERED: METOCLOPRAMIDE 10 MG/2 ML VIAL IVP PRN (22:46)
[2020-05-20] MEDS ORDERED: NALBUPHINE 10 MG/ML AMP IVP PRN (22:46)
[2020-05-20] MEDS ORDERED: NALOXONE 0.4 MG/ML VIAL IVP PRN (22:46)
[2020-05-20] MEDS ORDERED: ROPIVACAINE 0.2% 200 MG/100 ML BAG EP PRN (22:46)
[2020-05-20] MEDS ORDERED: diphenhydrAMINE INJ 50 MG/ML VIAL IVP PRN (22:46)
[2020-05-20] MEDS ORDERED: ePHEDrine 50 MG/ML VIAL IVP PRN (22:46)
[2020-05-21] MEDS: AMPICILLIN 1 GM in SODIUM CHLORIDE 0.9% MINIBAG 100 ML IV SCH ×2 (02:55→06:43)
[2020-05-21] MEDS ORDERED: LIDOCAINE-PF 2% 10 ML AMP SUBQ ONE (06:57)
--- NOTE | 2020-05-21 07:01 | CONSULTATION NOTE ---
Consultation Report: Called at 6:15 as patient teary and not getting pain relief from PCEA. Arrived at 6:38, patient not in lockout of PCEA, epidural appears intact, patient 8cm with bulging bag, CNM on her way in. Lidocaine 2%-10cc given via epidural.
[2020-05-21] MEDS ORDERED: WITCH HAZEL/GLYCERIN 1 PAD TOP PRN (07:50)
[2020-05-21] MEDS ORDERED: HYDROCORTISONE 1% CREAM 28 GM TUBE PR PRN (07:50)
--- NOTE | 2020-05-21 07:57 | DELIVERY NOTE ---
Delivery Note - Labor Labor: positive: Augmented by oxytocin - Delivery Method Delivery Method: positive: Spontaneous vaginal delivery - Presentation Presentation: positive: Vertex, AMBIKA - right occiput anterior - Nuchal Cord Nuchal Cord: positive: Present (loose x1, reduced) - Amniotic Fluid Description Amniotic Fluid Description: positive: Clear - Episiotomy Type Episiotomy Type: positive: None - Laceration Laceration: positive: None - Delivery Outcome Delivery Outcome: positive: Livebirth - [place]: positive: Placed in direct skin contact with mother, Bulb syringe, B lanket used sex: positive: Male : 8 : 8 - Cord Cord: positive: 3 vessels - Placenta Placenta: positive: Intact, Spontaneous - Estimated Blood Loss Estimated Blood Loss (in cc): 250 - Post Delivery Events Post Delivery Events: positive: No post delivery events - Delivery Comments (Free Text/Narrative) Delivery Comments (Free Text/Narrative): Note: Labor: This 24 year old, , @39.0 wks gestation by 14.0 week Ultrasound, confirmed by LMP, presented @ 0800 on 05/20/2020 for elective IOL. Cervix was2/80/-3 and vertex. FHR pattern demonstrated a Category I pattern. Misoprostol for cervical ripening. Normal labor course. Epidural placed upon maternal request. Pitocin augmentation administered. SROM with moderate clear fluid occurred shortly before she was checked and found to be c/c/+1 at 0720. : Normal of a 3620gm male on 05/21/2020 @ 0729. Nuchal present and reduced. The was placed on maternal abdomen, stimulated, dried and placed skin to skin. Apgars 8 at one minute and 8 at five minutes. The umbilical cord was allowed to stop pulsating at which time it was doubly clamped by CNM and cut by FOB. Pitocin administered via IV for hemostasis. Fundal massage and gentle cord traction applied for active third stage management. Cord blood was obtained. Placenta delivered spontaneously and intact at 0736. Three vessel cord. EBL 250 mL. Fourth Stage: Uterine fundus firm and without excessive bleeding. The perineum, vagina, and cervix were inspected and found to be intact. initiated. Family bonding well. Both mother and baby are in stable condition.
[2020-05-21] MEDS: DOCUSATE SODIUM 100 MG CAPSULE PO SCH ×2 (09:19→20:33)
[2020-05-21] MEDS: IBUPROFEN 600 MG TABLET PO SCH ×3 (09:19→23:45)
[2020-05-21] MEDS: ACETAMINOPHEN 500 MG TABLET PO PRN ×2 (09:19→17:46)
[2020-05-21] MEDS: SODIUM CHLORIDE FLUSH 0.9% 10 ML SYRINGE IVP SCH (09:20)
[2020-05-22] MEDS: IBUPROFEN 600 MG TABLET PO SCH ×4 (04:25→17:30)
[2020-05-22] MEDS: DOCUSATE SODIUM 100 MG CAPSULE PO SCH ×2 (10:35→11:34)
--- NOTE | 2020-05-22 12:44 | DISCHARGE SUMMARY ---
Discharge Summary Admit Date: 05/20/20 Discharge Date: 05/22/20 Discharge Disposition: 01 Home, Self Care - HPI History of Present Illness: Admit Date 05/20/2020 Discharge Date 05/22/2020 Diagnosis on Admission: 1. A 24yo at 39.1 week intrauterine 2. Elective IOL 3. GBS Positive Diagnosis on Discharge 1. A 24yo s/p spontaneous vaginal delivery on 05/21/2020 2. Normal recovery Brief History: She is a patient at [facility] who presented on 05/20/2020 for elective IOL. The patient was found to contract very intermittently and her cervix was 2cm dilated, 80%effaced, and -3 station. Cervical ripening with misoprostol, then she as augmented with pitocin and spontaneously delivered a viable male infant named Klaus. Apgars were 8 and 8- and 1 and 5 minutes respectively. EBL 250mL. Her perineum was intact. She has been doing well in her course. She is ambulating and tolerating a regular diet. She is urinating without difficulty and her lochia is normal. Her pain is well controlled with oral medications. She will be discharged to boarder status today on day #1, as baby is staying for phototherapy. She is without need for prescriptions. She intends to follow up w [facility] in 1, and 6 weeks for routine visit. She has been given precautions to call if she has any worsening fevers, chills, abdominal pain, increased bleeding or foul smelling vaginal lochia. - ALLERGIES Allergies/Adverse Reactions: Allergies Allergy/AdvReac Type Severity Reaction Status Date / Time No Known Drug Allergies Allergy Verified 03/31/18 06:34 - MEDICATIONS Home Medications: Ambulatory Orders Medication Instructions Recorded Confirmed Albuterol Sulf [Ventolin Hfa 1 - 2 puffs INH Q4HR PRN 05/20/20 05/20/20 Inhaler] Ferrous Sulfate 325 mg PO 05/20/20 Metoclopramide [Reglan] 10 mg PO Q6H PRN 05/20/20 05/20/20 Pnv No.95/Ferrous Fum/Folic AC 1 each PO 05/20/20 [ Tablet] - LABS Result Diagrams: 05/20/20 08:45
--- NOTE | 2020-05-22 12:48 | PROVIDER PROGRESS NOTE ---
Subjective - Prog Note Date Prog Note Date: 05/22/20 Prog Note Time: 12:45 - Subjective Pt reports feeling: Improved Subjective: S: Hallie is standing near the phototherapy isolette doing video chatting with FOB and children at home. She is cheerful and reports her other baby(s) needed phototherapy as well. She reports as going well, although a little more difficult on her right side. S Her bleeding is light, with pad changes every couple of hours and not soaked top to bottom at all. Cramping is minimal, and she reports not having taken any NSAIDs since except for about an hour ago for a bout of back discomfort "from her epidural site" After discussion about boarder status, she wishes to be discharged and understands her partner will need to bring in any further pain medication, should she desire them. O: Fundus firm Lochia rubra A: Normal recovery P: Discharge to boarder status today Objective - Vital Signs/Intake & Output Vital Signs: Vital Signs x48h Temp Pulse Resp BP Pulse Ox 05/22/20 08:00 37.2 C 73 18 122/78 100 Intake & Output: Intake & Output 05/19/20 05/20/20 05/21/20 05/22/20 23:59 23:59 23:59 23:59 Intake Total 1200.0 1900.000 Output Total 300 1305 Balance 900.0 595.000 - Lab Results Fish Bones: 05/20/20 08:45
--- NOTE | 2020-05-22 12:49 | Discharge Plan ---
Discharge Plan Problem Reviewed?: Yes Disposition: Home, Self Care Condition: Good Additional Instructions or Follow Up instructions: Follow up with midwifery at 1 and 6 weeks No Smoking: If you smoke, Please STOP! Call for help. Follow-up with: Brenda Ortiz ARNP [Provider Admit Priv/Credential] -
[2020-05-22 16:24] VITALS: BP 108/71
--- NOTE | 2020-05-22 18:27 | Labor Flowsheet ---
Labor Flowsheet Datetime Report Generated by CPN: 05/22/2020 18:26 Datetime: 05/22/2020 16:15 VITAL SIGNS NBP Sys/Mini/Mean (mmHg): 108 : 71 : 80 Pulse: 75 Datetime: 05/21/2020 12:44 SpO2 (%): 100 Datetime: 05/21/2020 09:44 PAIN Pain Scale: 0 Pain Presence: None/Denies Datetime: 05/21/2020 07:45 Respirations: 18 Temperature (C): 36.9 Datetime: 05/21/2020 07:37 Stage of : Recovery Datetime: 05/21/2020 07:34 Medication Comments: Pitocin wide open per CNM Datetime: 05/21/2020 07:30 LaborFlag: Labor Datetime: 05/21/2020 07:29 UTERINE ACTIVITY Monitor Mode: External Frequency (min): 1.5-3 Quality: Strong Duration (sec): 60 Pattern: Normal: <= 5 Contractions in 10 Minutes Resting Tone (Palpate): Relaxed Contraction Comments: Pushing contractions Comments: Spotty tracing due to maternal position and pushing; possible 135 baseline Datetime: 05/21/2020 07:19 STAGE 2 Pushing: Urge to Push Pushing Position: Pushing with Contractions Pushing Progress: Descent with Pushing Datetime: 05/21/2020 07:16 VAGINAL EXAM Dilatation (cm): 10.0 Station: 1 Exam by: Brenda Ortiz CNM PROJECT PRODUCTION ENGINEER Membrane Status: Ruptured Membranes Rupture Method: Spontaneous Amniotic Fluid Color: Clear Amniotic Fluid Odor: Normal Datetime: 05/21/2020 07:15 Variability: Moderate 6-25 bpm Accelerations: 10X10 Decelerations: None Category: Category I Datetime: 05/21/2020 07:00 Pitocin Checklist: At Least 1 Acceleration of 15 bpm x 15 Seconds in 30 Minutes or Adequate Variabi lity; No More than 1 Late Deceleration Occurred in Past 30 Minutes; No More than 2 Variable Decelerat ions > 60 Seconds in Duration and decreasing >60 bpm in 30 minutes ASSESSMENT A Monitor Mode: External US FHR Baseline Rate : 140 Oxygen Method: Room Air Datetime: 05/21/2020 06:58 MEDICATIONS Pitocin (milliunits): Decreased to @ 10 Datetime: 05/21/2020 06:51 COMMUNICATION Communication: Provider at Bedside Provider Notified (Name): Angel CNM Communication Comments: CNM here @ bedside Datetime: 05/21/2020 06:44 Patient Care Comments: 450ml UO Datetime: 05/21/2020 06:41 Pain Coping: Crying Datetime: 05/21/2020 06:26 Monitor Interventions for UA: [place] Adjusted Monitor Interventions for FHR: Ultrasound Adjusted Datetime: 05/21/2020 06:18 Effacement (%): 100 Vaginal Bleeding: None Cervix, Consistency: Soft Cervix, Position: Anterior Datetime: 05/21/2020 06:17 Provider Reviewed Strip: No Notification Reason: Labor Status; Uterine Activity; Pain Datetime: 05/21/2020 06:12 Nausea/Vomiting: Present Datetime: 05/21/2020 06:00 FHR Baseline Changes: No Baseline Change Datetime: 05/21/2020 05:33 Patient Position/Activity: Right Lateral Datetime: 05/21/2020 04:55 Pain Assessment Comments: states she is "OK" Anesthesia Comments: Replaced Ropivicaine bag with L. Spear RNC Datetime: 05/21/2020 02:45 Temperature Route: Oral Pain Type: Contraction Pain Location: Abdomen Datetime: 05/21/2020 00:10 I/O Interventions: Serrato Cath Inserted Datetime: 05/20/2020 22:30 Pain Relief Measures: Epidural Given Datetime: 05/20/2020 22:28 Epidural Procedure Other: Pump Started Datetime: 05/20/2020 22:21 Epidural Procedure: Test Dose Datetime: 05/20/2020 21:50 PROCEDURE TIME OUT Procedure Verify: Correct Patient Identity; Correct Side and Site are Marked; Accurate Procedure Co nsent Form; Agreement on Procedure to be Done; Correct Patient Position ANESTHESIA Anesthesia Plans: Epidural Epidural Positioning: Sitting Datetime: 05/20/2020 21:20 Antibiotics: Ampicillin IV 1 Gm Datetime: 05/20/2020 19:41 Vaginal Exam Comments: 3-4cm Datetime: 05/20/2020 19:30 Actions for Decelerations: Side to Side Datetime: 05/20/2020 19:17 MATERNAL ASSESSMENT Level of Consciousness: Alert Headache: Denies Breath Sounds, Left: Clear and Equal Breath Sounds, Right: Clear and Equal RUQ Epigastric Pain: Denies Datetime: 05/20/2020 19:00 Comfort Measures: Breathing/Relaxation Datetime: 05/20/2020 18:20 PATIENT CARE IV/Blood Work: IV Saline Locked Datetime: 05/20/2020 15:01 Cervical Ripening Agents: Cytotec @ 50 mcg BC
== END 2020-05-22 17:40 | disposition home or self-care (01) | DRG 806 ==
LOC: WFO 08:05 → FBP 08:13 → WFO 09:19 → FBP 09:20 → OBSVTOIN 23:24
PROVIDERS: ADMIT Advanced Practice Midwife; ATTEND Advanced Practice Midwife
PROC: 10E0XZZ Delivery of Products of Conception, External Approach (ICD-10-PCS; principal; 2020-05-21)
DX: O69.81X0 Labor and delivery complicated by cord around neck, without compression, not applicable or unspecified (principal); O23.03 Infections of kidney in pregnancy, third trimester; Z37.0 Single live birth; Z3A.39 39 weeks gestation of pregnancy; O99.824 Streptococcus B carrier state complicating childbirth; O99.214 Obesity complicating childbirth; E66.01 Morbid (severe) obesity due to excess calories; O99.334 Smoking (tobacco) complicating childbirth; F17.290 Nicotine dependence, other tobacco product, uncomplicated; Z20.822 Contact with and (suspected) exposure to COVID-19
CPT/HCPCS: 36415; 85025; 86850; 86900; 86901; 87635; 96365; 96366; 96367; A9270; J7120

== ENCOUNTER 2022-02-22 14:19 | Emergency (ER) | payer MEDICAID ==
[2022-02-22 14:40] VITALS: BP 133/82
[2022-02-22] MEDS ORDERED: oxyCODONE 5 MG TABLET PO STA (14:45)
--- NOTE | 2022-02-22 14:48 | ED Physician Documentation ---
History of Present Illness - Stated complaint Stated Complaint: R ARM PX - Chief complaint Chief Complaint: Ext Problem - Additonal information Additional information: 18-year-old female who is right-hand dominant presents emergency department for evaluation of right wrist pain. She was attempting to get her dog into the kennel when she hit the kennel with her right arm. Initially she did not think much of it however over the ensuing hours she has developed some swelling and ecchymosis on the volar aspect of the wrist ulnar side. [id number]. No history of previous injury. 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 : Kidney stones HEENT: None Psych: None Musculoskeletal: None Derm: None - Past Surgical History Past Surgical History: Yes - Present Medications Home Medications: Ambulatory Orders Medication Instructions Recorded Confirmed No Known Home Medications 02/22/22 02/22/22 - Allergies Allergies/Adverse Reactions: Allergies Allergy/AdvReac Type Severity Reaction Status Date / Time No Known Drug Allergies Allergy Verified 02/22/22 14:39 - Social History Does the pt smoke?: Yes Smoking Status: Former smoker Does the pt drink ETOH?: No Does the pt have substance abuse?: No - Immunizations Immunizations are current?: Yes - POLST Patient has POLST: No PD ED PE EXPANDED - General General: Alert, In Pain - Extremities Extremities: Right wrist (Mild swelling tenderness and ecchymosis just proximal to ulnar prominence volar side right wrist. Normal flexion extension at the wrist. No snuffbox tenderness. 2+ radial pulse neurovascularly intact. No pain of the hand elbows or shoulder.) Results - Vitals Vitals: Vital Signs - 24 hr 02/22/22 14:36 Temperature 36.7 C Heart Rate 89 Respiratory 18 Rate Blood Pressure 133/82 H O2 Saturation 97 Oxygen O2 Source Room air - Rads (name of study) right wrist Radiology: EMP read indepedently (No acute fracture or osseous lesion or dislocation) PD MEDICAL DECISION MAKING - ED course Complexity details: considered differential, d/w patient ED course: 26-year-old female presents emergency department for evaluation of acute right wrist pain sustained when she fell into the kennel trying to put her dog in it. She has a fair amount of soft tissue swelling and ecchymosis just proximal to the ulnar prominence on the volar side of the wrist. However she has normal flexion extension at the wrist with no snuffbox tenderness. My interpretation of the x-ray is that is negative for fracture. History and exam is most consistent for soft tissue injury/contusion. Right arm was placed in Kelvin wrap. Routine care and emergent return precautions were discussed for failure symptoms to resolve. Departure - Departure Disposition: 01 Home, Self Care Clinical Impression: Contusion of wrist, right Qualifiers: Encounter type: initial encounter Qualified Code(s): S60.211A - Contusion of right wrist, initial encounter Condition: Stable Record reviewed to determine appropriate education?: Yes Comments: Sara the x-ray of your wrist does not show a broken bone. You have a lot of soft tissue swelling and bruising. This is most consistent with a simple contusion. I recommend use the Kelvin wrap when out of bed. Icing the wrist will also be helpful. You can take Tylenol or ibuprofen [id number] for discomfort. Return to the emergency department if you find that your symptoms worsen, you develop fevers redness or have any concerns of infection.
--- NOTE | 2022-02-22 15:25 | XRAY Report ---
PROCEDURE: Wrist 3 View RT INDICATIONS: wrist and fa pain after fall TECHNIQUE: 3 views of the wrist were acquired. COMPARISON: None FINDINGS: Bones: No fractures or dislocations. No suspicious bony lesions. Soft tissues: No suspicious soft tissue calcifications. IMPRESSION: Negative right wrist. Reviewed by: Grupo Carvajal MD on 02/22/2022 3:24 PM PST Approved by: Grupo Carvajal MD on 02/22/2022 3:24 PM [facility] [place] Station ID: [id number]
== END 2022-02-22 15:15 | disposition home or self-care (01) ==
LOC: ED 14:19
DX: S60.211A Contusion of right wrist, initial encounter (principal); W22.09XA Striking against other stationary object, initial encounter; Z87.891 Personal history of nicotine dependence
CPT/HCPCS: 73110; 99283; A9270

== ENCOUNTER 2022-08-08 14:41 | Emergency (ER) | payer MEDICAID ==
--- NOTE | 2022-08-08 14:54 | ED Physician Documentation ---
PD HPI URI - Stated complaint Stated Complaint: WILSON,SWOLLEN THRX,PX - Chief complaint Chief Complaint: Heent - History obtained from History obtained from: Patient - History of Present Illness Timing - onset: How many days ago (2-3) Timing duration: Days (2-3) Timing details: Abrupt onset, Still present Contributing factors: Sick contact (Her had strep throat about 2 to 3 weeks ago and was treated for it. Her 2 children had similar about a week ago as well as pinkeye and were treated. 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 : Kidney stones HEENT: None Psych: None Musculoskeletal: None Derm: None - Past Surgical History Past Surgical History: Yes - Present Medications Home Medications: Ambulatory Orders Medication Instructions Recorded Confirmed Penicillin V Potassium 1,000 mg PO BID #28 tablet 08/08/22 - Allergies Allergies/Adverse Reactions: Allergies Allergy/AdvReac Type Severity Reaction Status Date / Time No Known Drug Allergies Allergy Verified 08/08/22 14:50 - Social History Does the pt smoke?: Yes Smoking Status: Former smoker Does the pt drink ETOH?: No Does the pt have substance abuse?: No - Immunizations Immunizations are current?: Yes - POLST Patient has POLST: No PD ED PE NORMAL - Vitals Vital signs reviewed: Yes - General General: Alert and oriented X 3, No acute distress, Well developed/nourished - HEENT HEENT: No: Pharynx benign (tonsils swollen with exudate both sides. No peritonsillar swelling. ) - Neck Neck: Supple, no meningeal sign, Other (anterior adenopathy that is tender. ) - Cardiac Cardiac: RRR, No murmur - Respiratory Respiratory: Clear bilaterally - Derm Derm: Normal color, Warm and dry - Neuro Neuro: Normal speech Results - Vitals Vitals: Vital Signs - 24 hr 08/08/22 08/08/22 14:47 15:36 Temperature 36.8 C 37.3 C Heart Rate 98 79 Respiratory 20 14 Rate Blood Pressure 123/95 H 116/66 O2 Saturation 97 98 Oxygen O2 Source Room air - Labs Labs: Laboratory Tests 08/08/22 14:57 Group A Strep Rapid Negative PD Medical Decision Making - ED course Complexity details: reviewed results (rapid test neg. Culture pending. ), considered differential (has exposure to strep with family members in past couple weeks and had 4/4 Centor criteria. Can empirically treat pending culture. ), d/w patient Departure - Departure Disposition: Home, Self Care Clinical Impression: Pharyngitis, acute Qualifiers: Pharyngitis/tonsillitis etiology: unspecified etiology Qualified Code(s): J02.9 - Acute pharyngitis, unspecified Condition: Stable Record reviewed to determine appropriate education?: Yes Instructions: ED Strep Pharyngitis Poss Prescriptions: Penicillin V Potassium 1,000 mg PO BID #28 tablet Comments: This does look most likely strep throat especially given your exposure to it at home. We will treat it as strep throat with antibiotics. We also gave a dose of a steroid to help with some of the inflammation and pain. This should last for a day or 2 as the infection is clearing. Continue with Tylenol and/or ibuprofen regularly to help with fevers and pains. You can use diphenhydramine/Benadryl liquid 1 to 2 teaspoons swish and swallow as it does act as a numbing agent in the throat. Stay hydrated. Increase food intake as tolerated. We did do a rapid strep test here and subsequent we will do a culture. The results are not yet back. I sent your prescriptions to your preferred pharmacy. Discharge Date/Time: 08/08/22 15:36
[2022-08-08] MEDS ORDERED: DEXAMETHASONE 10 MG/ML VIAL PO STA (15:03)
[2022-08-08] MEDS ORDERED: PENICILLIN VK 250 MG TABLET PO STA (15:03)
[2022-08-08] MEDS ORDERED: CHERRY SYRUP 10 ML UDC PO ONE (15:03)
[2022-08-08] MEDS ORDERED: IBUPROFEN 600 MG TABLET PO STA (15:03)
[2022-08-08] MEDS ORDERED: diphenhydrAMINE ELIXIR 25 MG/10 ML UDC PO STA (15:03)
[2022-08-08 15:38] VITALS: BP 116/66
[2022-08-08 15:43] LABS: RAPID STREP SCREEN Negative (Negative)
== END 2022-08-08 15:36 | disposition home or self-care (01) ==
LOC: ED 14:41
DX: J02.9 Acute pharyngitis, unspecified (principal); Z87.891 Personal history of nicotine dependence
CPT/HCPCS: 87070; 87430; 99283; A9270

== ENCOUNTER 2023-03-21 03:45 | Emergency (ER) | payer MEDICAID ==
[2023-03-21] MEDS ORDERED: SODIUM CHLORIDE 0.9% 1,000 ML IV STA (04:00)
[2023-03-21 04:21] LABS: BASOPHILS % (AUTO) 0.3 %; BILIRUBIN,URINE NEGATIVE (NEGATIVE); EOSINOPHILS # (AUTO) 0.4 10^3/uL (0.0-0.7); EOSINOPHILS % (AUTO) 3.1 %; GLUCOSE, URINE (UA) NEGATIVE (NEGATIVE); HGB - HEMOGLOBIN 14.4 g/dL (12.0-16.0); KETONES,URINE (UA) NEGATIVE (NEGATIVE); LEUKOCYTE ESTERASE, URINE SMALL (NEGATIVE); LYMPHOCYTES # (AUTO) 3.3 10^3/uL (1.5-3.5); LYMPHOCYTES % (AUTO) 27.7 %; MEAN CORPUSCULAR HEMOGLOBIN 28.5 pg (27.0-31.0); MEAN CORPUSCULAR VOLUME 89.1 fL (81.0-99.0); MEAN PLATELET VOLUME 9.8 fL (7.9-10.8); MONOCYTES # (AUTO) 0.7 10^3/uL (0.0-1.0); MONOCYTES % (AUTO) 6.2 %; NEUTROPHILS # (AUTO) 7.4 10^3/uL (1.5-6.6); NEUTROPHILS % (AUTO) 62.4 %; NITRITE,URINE POSITIVE (NEGATIVE); OCCULT BLOOD,URINE LARGE (NEGATIVE); PLT - PLATELET COUNT 299 10^3/uL (130-450); PROTEIN,URINE 30 mg/dL (NEGATIVE); RED BLOOD COUNT 5.05 10^6/uL (4.20-5.40); RED CELL DISTRIBUTION WIDTH 12.9 % (12.0-15.0); UROBILINOGEN,URINE 0.2 (NORMAL) E.U./dL (NORMAL); WHITE BLOOD COUNT 11.8 x10^3/uL (4.8-10.8)
[2023-03-21 04:22] LABS: CLARITY,URINE HAZY (CLEAR)
[2023-03-21 04:24] LABS: HCG UR QUAL NEGATIVE
[2023-03-21] MEDS ORDERED: HYDROmorphone 1 MG/ML CARPUJECT IVP STA (04:28)
[2023-03-21 04:29] LABS: BACTERIA,URINE Many /HPF (None Seen); SQUAMOUS EPITHELIAL CELL,UR FEW Squamous (<= Few)
[2023-03-21] MEDS ORDERED: ONDANSETRON 4 MG/2 ML VIAL IVP STA (04:29)
[2023-03-21 04:31] LABS: ALBUMIN 4.5 g/dL (3.2-5.5); ALBUMIN/GLOBULIN RATIO 1.4 (1.0-2.2); BILIRUBIN,TOTAL 0.4 mg/dL (0.2-1.0); CALCIUM 9.6 mg/dL (8.5-10.3); CREATININE 0.8 mg/dL (0.6-1.3); POTASSIUM 3.6 mmol/L (3.5-4.5); TOTAL PROTEIN 7.8 g/dL (6.4-8.9)
[2023-03-21] MEDS ORDERED: cefTRIAXone 2 GM in SODIUM CHLORIDE 0.9% MINIBAG 100 ML IV STA (04:49)
--- NOTE | 2023-03-21 04:50 | ED Physician Documentation ---
History of Present Illness - Stated complaint Stated Complaint: RT LOWER BACK PX/VOMITING - Chief complaint Chief Complaint: Back Pain - History obtained from History obtained from: Patient - Additonal information Additional information: 57-year-old woman with history of kidney stones presents with right flank painSince 2 AM with associated nonbloody nonbilious nausea and vomiting. Denies fevers, abdominal pain, urinary symptoms. Review of Systems Cardiac: denies: Chest pain / pressure Respiratory: denies: Dyspnea GI: reports: Nausea, Vomiting. 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 : Kidney stones HEENT: None Psych: None Musculoskeletal: None Derm: None - Past Surgical History Past Surgical History: Yes - Present Medications Home Medications: Ambulatory Orders Medication Instructions Recorded Confirmed Cefpodoxime Proxetil [Vantin] 200 mg PO Q12H #28 tablet 03/21/23 Ketorolac [Toradol] 10 mg PO Q6H PRN #30 tablet 03/21/23 Ondansetron Odt [Zofran Odt] 4 mg TL Q6H PRN #10 tablet 03/21/23 Tamsulosin [Flomax] 0.4 mg PO DAILY 14 Days #14 tab 03/21/23 - Allergies Allergies/Adverse Reactions: Allergies Allergy/AdvReac Type Severity Reaction Status Date / Time No Known Drug Allergies Allergy Verified 03/21/23 03:53 - Social History Does the pt smoke?: Yes Smoking Status: Current every day smoker Does the pt drink ETOH?: No Does the pt have substance abuse?: No - Immunizations Immunizations are current?: Yes - POLST Patient has POLST: No PD ED PE NORMAL - Vitals Vital signs reviewed: Yes - General General: Alert and oriented X 3, Well developed/nourished, Other (Uncomfortable appearing) - HEENT HEENT: Atraumatic, PERRL, EOMI - Neck Neck: Supple, no meningeal sign - Cardiac Cardiac: RRR - Respiratory Respiratory: No respiratory distress, Clear bilaterally - Abdomen Abdomen: Non tender, Non distended - Back Back: Other (Right CVA tender to palpation) Results - Vitals Vitals: Vital Signs - 24 hr 03/21/23 03/21/23 03/21/23 03:49 04:40 05:05 Temperature 36.1 C L Heart Rate 84 77 67 Respiratory 20 20 16 Rate Blood Pressure 129/75 130/98 H 131/88 H O2 Saturation 98 97 97 03/21/23 03/21/23 05:37 05:53 Temperature 36.9 C Heart Rate 74 55 L Respiratory 16 16 Rate Blood Pressure 119/81 H 119/81 H O2 Saturation 97 97 Oxygen O2 Source Room air - Labs Labs: Laboratory Tests 03/21/23 03/21/23 03/21/23 04:06 04:06 04:06 WBC 11.8 H RBC 5.05 Hgb 14.4 Hct 45.0 MCV 89.1 MCH 28.5 MCHC 32.0 RDW 12.9 Plt Count 299 MPV 9.8 Neut # (Auto) 7.4 H Lymph # (Auto) 3.3 [place] # (Auto) 0.7 Eos # (Auto) 0.4 Baso # (Auto) 0.0 Absolute Nucleated RBC 0.00 Nucleated RBC % 0.0 Sodium 137 Potassium 3.6 Chloride 104 Carbon Dioxide 25 Anion Gap 8.0 BUN 11 Creatinine 0.8 Estimated GFR (MDRD) 85 L Glucose 104 Calcium 9.6 Total Bilirubin 0.4 AST 17 ALT 18 Alkaline Phosphatase 74 Total Protein 7.8 Albumin 4.5 Globulin 3.3 Albumin/Globulin Ratio 1.4 Lipase 41 Urine Color YELLOW Urine Clarity HAZY Urine pH 6.0 Ur Specific [place] 1.025 Urine Protein 30 H Urine Glucose (UA) NEGATIVE Urine Ketones NEGATIVE Urine Occult Blood LARGE H Urine Nitrite POSITIVE H Urine Bilirubin NEGATIVE Urine Urobilinogen 0.2 (NORMAL) Ur Leukocyte Esterase SMALL H Urine RBC 11-25 H Urine WBC 11-25 H Ur Squamous Epith Cells FEW Squamous Urine Bacteria Many H Ur Microscopic Review INDICATED Urine Culture Comments INDICATED Urine HCG, Qual 03/21/23 04:06 WBC RBC Hgb Hct MCV MCH MCHC RDW Plt Count MPV Neut # (Auto) Lymph # (Auto) [place] # (Auto) Eos # (Auto) Baso # (Auto) Absolute Nucleated RBC Nucleated RBC % Sodium Potassium Chloride Carbon Dioxide Anion Gap BUN Creatinine Estimated GFR (MDRD) Glucose Calcium Total Bilirubin AST ALT Alkaline Phosphatase Total Protein Albumin Globulin Albumin/Globulin Ratio Lipase Urine Color Urine Clarity Urine pH Ur Specific [place] Urine Protein Urine Glucose (UA) Urine Ketones Urine Occult Blood Urine Nitrite Urine Bilirubin Urine Urobilinogen Ur Leukocyte Esterase Urine RBC Urine WBC Ur Squamous Epith Cells Urine Bacteria Ur Microscopic Review Urine Culture Comments Urine HCG, Qual NEGATIVE PD Medical Decision Making - ED course ED course: 27-year-old woman presents with right flank pain concerning for kidney stones. White blood cell count 11.8, likely reactive leukocytosis. She also does have a UTI and blood in the urine. Treated with Rocephin. Plan to obtain CT abdomen and pelvis to evaluate for stones. IV Dilaudid and Zofran provided with improvement in pain and nausea. Fluids provided as well. Toradol erased the pain completely. patient with 7mm proximal R ureter stone, moderate hydro, wbc 11.8 and uti. d/w Dr. Rockwell who states patient should follow up in clinic. return precautions given. antibiotics and pain meds sent to pharmacy. Departure - Departure Disposition: 01 Home, Self Care Clinical Impression: Back pain, UTI (urinary tract infection) Condition: Stable Instructions: Kidney Stones, Pyelonephritis Dc Follow-Up: Duane Rockwell MD [Provider Admit Priv/Credential] - Prescriptions: Tamsulosin [Flomax] 0.4 mg PO DAILY 14 Days #14 tab Ketorolac [Toradol] 10 mg PO Q6H PRN #30 tablet PRN Reason: Pain Cefpodoxime Proxetil [Vantin] 200 mg PO Q12H #28 tablet Ondansetron Odt [Zofran Odt] 4 mg TL Q6H PRN #10 tablet PRN Reason: Nausea / Vomiting Comments: You were seen in the emergency department for back pain. You have a 7 mm proximal right ureteral kidney stone and a UTI. It is very important that if you have a fever (temperature higher than 100.4) that you come back to the emergency department right away or go to [facility] where they have urology services. Electronic prescriptions were sent to your pharmacy. Please follow-up with urology clinic and return to the emergency department if you have any new or worsening symptoms or other concerns.
[2023-03-21] MEDS ORDERED: KETOROLAC 15 MG/ML VIAL IVP STA (05:04)
[2023-03-21] MEDS ORDERED: cefTRIAXone 2 GM VIAL ONE (05:19)
[2023-03-21 06:58] VITALS: BP 114/71; O2SAT 98
--- NOTE | 2023-03-21 10:58 | CT Report ---
PROCEDURE: ABDOMEN/PELVIS WO INDICATIONS: kidney stones, R flank pain TECHNIQUE: A CT scan of the abdomen and pelvis was performed without the use of intravenous contrast. Images we re recorded and evaluated at appropriate window settings. Reformats: coronal and sagittal. For radiat ion dose reduction, the following was used: automated exposure control, adjustment of mA and/or kV ac cording to patient size. COMPARISON: CT abdomen and pelvis without, 01/22/2018. FINDINGS: Image quality: Excellent. Lung bases and heart: Mild bibasilar infiltrates. Liver: No solid mass. Gallbladder and biliary tree: Normal gallbladder. No biliary dilation Spleen: No splenomegaly. Pancreas: No pancreatic ductal dilation. Adrenals: No adrenal nodule. Kidneys and ureters: There is a 6 mm proximal right ureter stone with CT density 888 HU. There is mod erate right hydronephrosis. In addition, there are a couple of nonobstructive stones within the poste rior pole of the right kidney, measuring 7 mm and 1 mm. A cortical scar is seen in the right kidney. No left renal stone or hydronephrosis. No renal cystic lesion which requires follow up. No solid mass . Bowel and peritoneum: No bowel distension. No pathologic free fluid. Mild diverticulosis. No acute di verticulitis. Lymph nodes: No central or retroperitoneal adenopathy. Vessels: No infrarenal aortic aneurysm. PELVIS Reproductive organs: Unremarkable. Bladder: No wall thickness, accounting for underdistention. Pelvic lymph nodes: No pelvic adenopathy by size criteria. Bones: No aggressive osseous abnormality. Other: No significant ventral or inguinal hernia. IMPRESSION: 1. A 6 mm obstructing stone in the proximal left ureter causing moderate hydronephrosis. 2. Two nonobstructive stones in right kidney.. Findings are concordant with preliminary interpretation provided by [facility]. Reviewed by: Charla Denton MD on 03/21/2023 10:56 AM [facility] Approved by: Charla Denton MD on 03/21/2023 10:56 AM PST Station ID: [id number]
--- NOTE | 2023-03-24 11:55 | ED Physician Documentation ---
ED Addendum - Addendum Addendum: 03/24/23 11:55 The patient's urine culture came back showing greater than 100,000 and E. coli sensitive to cephalosporins. The patient had been discharged on Vantin so no change needed.
== END 2023-03-21 06:50 | disposition home or self-care (01) ==
LOC: ED 03:45
DX: N39.0 Urinary tract infection, site not specified (principal); B96.20 Unspecified Escherichia coli [E. coli] as the cause of diseases classified elsewhere; R31.9 Hematuria, unspecified; N13.2 Hydronephrosis with renal and ureteral calculous obstruction; Z87.442 Personal history of urinary calculi; F17.200 Nicotine dependence, unspecified, uncomplicated
CPT/HCPCS: 36415; 74176; 80053; 81001; 81025; 83690; 85025; 87086; 87181; 96365; 96375; 99284; 99285; J1170; 81003